=== PATIENT | male | born 1965 | race Caucasian/White ===

== ENCOUNTER 2018-01-10 17:47 | Emergency (ER) | payer MEDICARE, MEDICAID ==
--- NOTE | 2018-01-10 19:01 | ULT ---
ULTRASOUND BLADDER 01/10/18 HISTORY: Pain and retention. COMPARISON: None. FINDINGS: Urinary bladder is distended. The prevoid urinary bladder volume is 217 mL. IMPRESSION: Urinary bladder volume of 217 mL. POS: RAMANH
[2018-01-10 19:22] LABS: #Eosinphils 0.2 thou/uL (0.0-0.7); #Lymphocytes 3.1 thou/uL (1.20-3.40); #Neutrophils 9.7 thou/uL (1.40-6.50); %Basophils 0.3 % (0.0-1.0); %Eosinophils 1.1 % (0.0-10.0); %Lymphocytes 22.2 % (21.0-51.0); %Monocytes 6.9 % (0.0-10.0); %Neutrophils 69.5 % (42.0-75.0); Hemoglobin 18.1 g/dL (14.0-18.0); Mean Corpuscular HGB CONC 34.3 g/dL (32.0-36.0); Mean Corpuscular Hemoglobin 32.7 pg (27.0-31.0); Mean Corpuscular Volume 95.2 fl (80.0-94.0); Mean Platelet Volume 9.1 fL (7.4-10.4); Platelet Count 172 thou/uL (130-400); RBC Distribution Width 12.4 % (11.5-14.5); Red Blood Cell (RBC) Count 5.54 mill/uL (4.70-6.10)
[2018-01-10 19:45] LABS: ALT (SGPT) 30 U/L (8-55); AST (SGOT) 21 U/L (5-34); Albumin 3.8 g/dL (3.5-5.0); Alkaline Phosphatase 140 U/L (40-150); Anion Gap 15 mmol/L (10-20); BUN (Urea Nitrogen) 13 mg/dL (8.4-25.7); Bilirubin, Total 0.5 mg/dL (0.2-1.2); Calc. Creatinine Clearance 0 mL/min (70-130); Calcium 9.4 mg/dL (7.8-10.44); Carbon Dioxide 22 mmol/L (22-29); Chloride 101 mmol/L (98-107); Estimated GFR-MDRD Greater than 90; Glucose 288 mg/dL (70-105); Lipase 9 U/L (8-78); Potassium 4.3 mmol/L (3.5-5.1); Protein, Total 7.8 g/dL (6.0-8.3); Sodium 134 mmol/L (136-145)
[2018-01-10 19:54] LABS: Bilirubin Negative (Negative); Blood, Urine Moderate (Negative); Clarity CLOUDY (Clear); Glucose, Urine (Dipstick) 500 mg/dL (Negative); Leukocyte Small (Negative); Nitrite Positive (Negative); Protein, Urine (Dipstick) Negative (Neg-Trace); Specific Gravity, Urine 1.033 (1.002-1.036); pH, Urine 7.5 (5.0-9.0)
[2018-01-10 19:57] LABS: Bacteria/HPF 4+ HPF (None Seen); Hyaline Casts/LPF 0-3 HYALINE CAST LPF (0-3 Hyaline); RBC/HPF 21-50 HPF (0-3); Squamous Epithelial None Seen HPF (0-3); WBC/HPF 21-50 HPF (0-3)
--- NOTE | 2018-01-11 04:49 | CON ---
EMERGENCY ROOM OUTPATIENT CONSULTATION NOTE DATE OF ER CONSULTATION, EVALUATION, AND REPORT: 01/10/2018 REASON FOR CONSULTATION: 1. Concern for urinary retention. 2. Difficulty with passage of Alatorre catheter. 3. History of three recent urinary tract infections. HISTORY OF PRESENT ILLNESS: Mr. Grey Ronquillo is a pleasant 52-year-old white male with a history of diabetes mellitus and amyotrophic lateral sclerosis. He really has limited communication ability se condary to the ALS. He responds in a positive manner by smiling. The patient will grimace if he has opposed to evaluation or other assessments. The patient's current presentation is for urinary reten tion with difficulty with passage of a catheter. His primary home health nurse was not able to pass a catheter today. Reportedly, he has had three urinary tract infections recently. On one occasion, a catheter was passed and the patient had about 1200 mL of urine returned. The patient is brought to the emergency room today with concerns for ongoing urinary retention with i nability to pass a catheter. Prior to my arrival in the emergency department, the patient was able to spontaneously void over 200 mL. The patient then underwent bladder scanning, which showed a residual amount of 175 mL. PAST MEDICAL HISTORY: 1. Amyotrophic lateral sclerosis. 2. Diabetes mellitus type 2. PAST SURGICAL HISTORY: 1. Septoplasty. 2. Baclofen-pump placement. SOCIAL HISTORY: The patient is in a [place] [employer]. He is disabled and does not have a smoki ng or drug use history. ALLERGIES: No known drug allergies. FAMILY MEDICAL HISTORY: Positive for diabetes mellitus. OUTPATIENT MEDICATIONS: None recorded. PHYSICAL EXAMINATION: VITAL SIGNS: Temperature 97.9, blood pressure is 139/101, pulse 114, respirations 16, O2 saturations 94% on room air. GENERAL: This is a pleasant white male with typical characteristic changes associated with ALS. The patient has relatively rigid body and is not flexing his extremities very well. HEAD, EARS, EYES, NOSE, AND THROAT: Extraocular movements appear intact. Sclerae are anicteric. Or opharynx is clear. NECK: Supple. LUNGS: Clear bilaterally. CARDIAC: There is a regular rate and rhythm. ABDOMEN: Distended. Percussion reveals increased resonance in both upper quadrants and laterally in the lower quadrants. In the midline, there is an area of roughly the size of sarath can in the midlin e that the patient has some dullness to percussion indicating a degree of incomplete bladder emptying . The bladder scan was performed during the course of my evaluation, the patient returned a value of 175 mL. GENITOURINARY: Phallus is circumcised and is without lesion. There is a small amount of blood obser [place] on the patient's diaper, but this appears to be coming not from the penis, but from the patient's scrotum which is a little on the edematous side. He appears to be having appropriate care and has l otion on most of his skin. Testes appear otherwise benign. Palpation of inguinal canal finds no honey dence of hernia. Digital rectal examination is performed and finds the patient's prostate gland is m oderately enlarged at about 35-40 grams. It does not have a sinister characteristic to it on digital rectal examination. There is air and a creamy stool present in the patient's rectum. EXTREMITIES: I do not note any amputations or other significant abnormalities other than the ALS ass ociated changes. NEUROLOGIC: The patient was not able to participate in formal neurologic examination, but has the AL S findings as noted. PROCEDURE: The patient underwent a catheterization and underwent sterile prep with Betadine and then passage of a 16-Lao Higdon catheter per urethra. This at the meatus met a small meatal urethral stricture and then subsequently passed into the patient's urethra. More proximally approximately 4 cm proximally, the patient's catheter reached an area of resistance suggestive of possible stricture or sphincteric none relaxation. Catheter was subsequently passed through the patient's prostate glan d, which felt relatively stiff and into the patient's bladder. We had good return of yellow urine wi thout evidence of gross purulence. The balloon was inflated to 19 mL with sterile water. Catheter w as initially placed to plug for later catheter bag drainage. ASSESSMENT AND PLAN: 1. Multifactorial urinary obstruction. The patient likely has urethral stricture disease based on t he passage of the catheter and this should be evaluated at a future time point in office with the cys toscope to assess levels and degree of obstruction as well as the number of sites involved in obstruc tion. A voiding trial could be considered in the office in 2 weeks' time with associated cystoscopic assessment. Based on the fact that the patient would be a stretcher bound patient, he probably shou ld present for procedure in the procedure room. We will remove the catheter and perform a voiding tr ial there followed by cystoscopic assessment and possible catheter replacement or suprapubic tube ins ertion. A competent consent provider should accompany the patient for the visit. 2. Enlarged prostate gland. The patient probably should be started on Flomax and finasteride. In a ddition, given this presentation with recent recurrent urinary tract infections, I will recommend halima ropriate antibiotic coverage given to the patient for a period of 30 days as prostatitis may be prese nting a contributor to obstruction in patients with recent urinary tract infections. 3. Male health issues. The patient is 52 years old, does have obstructive presentation and PSA test ing would be appropriate in an outpatient basis. In summary, I think this patient probably will ulti mately end up with a suprapubic tube for management acutely, an indwelling Alatorre catheter appears halima ropriate. Total of 60-minutes consultation, evaluation, and assessment time was spent in assessment of this pat ient today.
== END 2018-01-10 21:10 | disposition home or self-care (01) ==
LOC: ERS 17:47
DX: N39.0 Urinary tract infection, site not specified (principal); E11.9 Type 2 diabetes mellitus without complications; E78.5 Hyperlipidemia, unspecified; F32.9 Major depressive disorder, single episode, unspecified
CPT/HCPCS: 36415; 76856; 80053; 81003; 81015; 83605; 83690; 85025; 87040; 87077; 87086; 87186

== ENCOUNTER 2019-03-10 16:12 | Inpatient (IN) | payer MEDICARE, MEDICAID ==
[~2019-03-10 16:12] MED LIST: ISOVUE-370 76%-LOCM 1 ML ONE
[2019-03-10] MEDS ORDERED: Ondansetron PF 4 MG/2 ML Vial ONE ×2 (16:29→16:36)
[2019-03-10 16:52] LABS: #Lymphocytes 1.1 thou/uL (1.20-3.40); #Monocytes 0.7 thou/uL (0.11-0.59); #Neutrophils 12.5 thou/uL (1.40-6.50); %Basophils 0.3 % (0.0-1.0); %Eosinophils 0.1 % (0.0-10.0); %Lymphocytes 7.9 % (21.0-51.0); %Monocytes 4.9 % (0.0-10.0); %Neutrophils 86.8 % (42.0-75.0); Hemoglobin 17.6 g/dL (14.0-18.0); Mean Corpuscular HGB CONC 32.6 g/dL (32.0-36.0); Mean Corpuscular Hemoglobin 30.6 pg (27.0-31.0); Mean Platelet Volume 9.7 fL (7.4-10.4); Platelet Count 192 thou/uL (130-400); RBC Distribution Width 11.7 % (11.5-14.5); Red Blood Cell (RBC) Count 5.76 mill/uL (4.70-6.10); White Blood Cell (WBC) Count 14.4 thou/uL (4.8-10.8)
[2019-03-10 17:12] LABS: ALT (SGPT) 103 U/L (8-55); AST (SGOT) 40 U/L (5-34); Albumin 3.9 g/dL (3.5-5.0); Alkaline Phosphatase 144 U/L (40-150); Anion Gap 15 mmol/L (10-20); BUN (Urea Nitrogen) 13 mg/dL (8.4-25.7); Bilirubin, Total 0.6 mg/dL (0.2-1.2); Calc. Creatinine Clearance 0 mL/min (70-130); Calcium 9.3 mg/dL (7.8-10.44); Carbon Dioxide 23 mmol/L (22-29); Chloride 100 mmol/L (98-107); Estimated GFR-MDRD Greater than 90; Globulin 3.9 g/dL (2.4-3.5); Glucose 318 mg/dL (70-105); Lipase 4 U/L (8-78); Potassium 3.9 mmol/L (3.5-5.1); Protein, Total 7.8 g/dL (6.0-8.3); Sodium 134 mmol/L (136-145)
[2019-03-10 17:15] LABS: Bilirubin Negative (Negative); Blood, Urine Trace (Negative); Clarity Turbid (Clear); Glucose, Urine (Dipstick) Greater than 1000 mg/dL (Negative); Leukocyte 500 Leu/uL (Negative); Nitrite 1+ (Negative); Protein, Urine (Dipstick) 20 mg/dL (Neg-Trace); Squamous Epithelial None Seen HPF (0-3); Urobilinogen Normal mg/dL (Less than 2); WBC/HPF Greater than 50 HPF (0-3)
[2019-03-10 17:27] LABS: Bacteria/HPF Rare-Few HPF (None Seen); Triple Phosphate Crystal 1+ HPF (None Seen)
--- NOTE | 2019-03-10 18:02 | CT ---
CT ABDOMEN AND PELVIS WITH IV CONTRAST: INDICATIONS: History of abdominal pain. FINDINGS: There is a 5.5 mm stone within the distal right ureter causing mild right hydronephrosis. There is a gastric button in place. There is a suprapubic catheter in place. There is a moderate am ount of retained stool within the sigmoid colon. The small bowel is of normal caliber. The gallblad krystle is surgically absent. There is bibasilar atelectasis. The pancreas and adrenal glands are clive l appearing. The spleen is normal appearing. There is diffuse osteopenia. There is scattered degenerative and osteoarthritic change. There is a pain pump overlying the right lower quadrant. IMPRESSION: 1. Distal right ureteral calculus with mild right hydronephrosis. 2. Moderate amount of retained stool within the sigmoid colon. 3. Gastric button, suprapubic catheter, and intrathecal pain pump. 4. Bibasilar atelectasis. POS: BH
[2019-03-10] MEDS ORDERED: Morphine 4 MG/ML VIAL ONE (18:18)
[2019-03-10] MEDS ORDERED: cefTRIAXone\\ROCEPHIN 2 GM VIAL ONE (18:18)
[2019-03-10] MEDS ORDERED: Sodium Chloride 0.9% 100 ML ONE (18:18)
[2019-03-10] MEDS ORDERED: Ketorolac Tromethamine 30 MG/ML VIAL ONE (18:51)
[2019-03-10] MEDS ORDERED: Sodium Chloride 0.9% 1,000 ML IV SCH ×2 (20:48→22:15)
[2019-03-10] MEDS ORDERED: Dextrose 50% Abboject 50 ML SYRINGE SLOW IVP PRN (20:48)
[2019-03-10] MEDS ORDERED: Dextrose 5% in Water 1,000 ML IV PRN (20:48)
[2019-03-10] MEDS ORDERED: Guaifenesin DM 100-10/5 ML UDCUP PO PRN (20:48)
[2019-03-10] MEDS ORDERED: Metoclopramide HCl 10 MG/2 ML VIAL IVP PRN (21:03)
[2019-03-10] MEDS: Tamsulosin HCl 0.4 MG CAP PO SCH (21:33)
[2019-03-10] MEDS: Famotidine 20 MG TAB PO SCH (21:33)
[2019-03-10] MEDS: Baclofen 10 MG TAB PO SCH (21:33)
[2019-03-10] MEDS: MEROPENEM 1 GM/50 ML 1 GM in Premix Bag 1 BAG IVPB SCH (21:35)
[2019-03-10] MEDS: Insulin Glargine 15 UNITS in Pre-Filled Syringe 1 EACH SC SCH (21:48)
[2019-03-10] MEDS: HumaLOG 300 UNITS/3 ML VIAL SC PRN (21:51)
--- NOTE | 2019-03-10 21:52 | HP ---
REASON FOR ADMISSION: Right ureteral stone with ureteric colic. HISTORY OF PRESENTING ILLNESS: Please note majority of this history is obtained by talking to caregiver at bedside and sister at bedside who is also power of deputy attorney general for patient as the patient has an amyotrophic lateral sclerosis and is mostly nonverbal. He can speak 1 or 2 words and he understands the questions and tries to answer them nonverbally. Around 12 noon, the patient developed right lower abdominal pain. This was excruciating and the patient communicated with his [employer] computer to his [facility] hospice nurse. He is currently a resident of [facility] and was in hospice under [facility] prior to arrival here. They have currently revoked hospice due to abdominal pain. The pain got worse and the patient started to have 2 episodes of vomiting and was nauseated. Decision was made to send him to [place] ER. From there, he was transferred here. Currently, the patient has no abdominal pain after receiving Toradol in the ER. Has no complaints of chest pain, shortness of breath, palpitations, PND, or orthopnea. No fever at present. PAST MEDICAL AND SURGICAL HISTORY: History of ALS from last 8 years, diabetes mellitus type 2. The patient is essentially bedbound, PEG tube, suprapubic catheter for urinary retention with recurrent UTI, history of septoplasty, prior baclofen pump, dyslipidemia, hypertension, history of recurrent UTIs, currently quadriplegic from ALS. CURRENT MEDICATIONS: Per [facility] records, the patient is on; 1. Finasteride 5 mg p.o. at bedtime via PEG tube. 2. Benadryl p.r.n. 3 times daily. 3. MiraLax 17 g daily. 4. Zanaflex 4 mg p.o. q.6 hourly p.r.n. 5. Baclofen 20 mg 4 times daily for spasms. 6. Myrbetriq 25 mg p.o. daily. 7. Ultram 50 mg p.o. q.4 hourly p.r.n. for pain. 8. Lantus 30 units subcu at bedtime. 9. Multivitamin 1 tablet once daily. 10. Lasix 20 mg twice daily. 11. Amitriptyline 25 mg p.o. at bedtime. 12. Aspirin 81 mg p.o. daily. ALLERGIES: THE PATIENT HAS SEVERE NAUSEATING EPISODE WHEN HE TAKES MORPHINE, BUT NO REAL ALLERGY SUCH. IN FACT, HE TAKES ULTRAM REGULARLY AT THE DETENTION. PERSONAL HISTORY: Does not abuse alcohol or drugs. He is currently a resident of [facility] in [place]. FAMILY HISTORY: Mother at the age of 64 years. She has had history of triple A aneurysm with rupture. Father at the age of 87 years, he has had history of prostate cancer with metastasis. Code status is full. Power of deputy attorney general is Ms. Myrick, his sister. The patient has been in hospice for the last 5 years and the hospice caregiver at bedside says this code status was not addressed with them till now. They are in the process of addressing it apparently. I have discussed code status with Ms. Myrick, his sister and she wants him to be a full code for now. REVIEW OF SYSTEMS: To the extent possible is negative except for those mentioned above. Please note, this is very limited in view of the patient's nonverbal status with history of ALS. PHYSICAL EXAMINATION: GENERAL: The patient is a 53-year-old male who is currently not in any acute distress. VITAL SIGNS: Blood pressure 155/100, pulse 100 per minute, respiratory rate 18 per minute, temperature 97.4 degrees Fahrenheit, saturating 96% on room air. NECK: Supple. No elevated JVD. HEENT: Eyes; extraocular muscles intact. Pupils reacting to light. Oral cavity, mucous membranes are dry. No exudates or congestion. CARDIOVASCULAR SYSTEM: S1, S2 heard. Regular rhythm. RESPIRATORY SYSTEM: Air entry 1+ bilateral. No rales or rhonchi. ABDOMEN: The patient has a PEG tube, has some excoriation and erythema of skin around it. The caregiver at bedside says it was lot worse before. No obvious tenderness at present. Bowel sounds are heard. No rigidity or guarding. EXTREMITIES: The patient has bilateral foot drop and mild edema in the lower extremities. Peripheral pulses are 1+ bilateral. No obvious gangrene seen. CENTRAL NERVOUS SYSTEM: The patient is quadriplegic. He is able to move his extraocular muscles well and facial musculature is intact at present. He can cough and smile. He is maintaining airway. PSYCHIATRIC SYSTEM: No obvious hallucinations or delusions. LABORATORY DATA: White count of 14, H and H are 17 and 54, platelet count 192 with 86% neutrophils. Sodium 134, bicarb is 23, BUN 13, creatinine 0.7, serum glucose 318, AST 40, ALT 103, alkaline phosphatase 144, albumin is 3.9, and lipase is 4. UA shows 1+ nitrite, positive leukocyte esterase, and greater than [address] of the abdomen and pelvis with IV contrast done shows distal right ureteral calculus with mild right hydronephrosis, moderate amount of retained stool within the sigmoid colon. The patient has a suprapubic catheter and prior intrathecal pain pump. CLINICAL IMPRESSION AND PLAN: The patient will be admitted to med/surg floor for right distal ureteral stone with mild hydronephrosis. The size of the stone is 5.5 mm per CAT scan. This should likely pass with IV hydration. Mr. Ronquillo is currently not in any pain. We will continue him on his Toradol. The family is particular about getting his baclofen. His baclofen intrathecal pump has not been operation after he went to hospice per family. We will place him on Flomax twice daily to aid with passage of the stone. Meropenem for possible urinary tract infection. He has suprapubic catheter and likely is colonized. Blood and urine cultures have been obtained in the ER. Dr. Raulito Dumont is his urologist, and we will obtain consultation in the morning. We will switch his Lantus to 15 units subcu twice daily. PEG feeding will be continued. If the patient's pain were to come back, he will be kept n.p.o. for possible cystoscopy and intervention. We will also continue his Proscar, amitriptyline, and Myrbetriq as before. The patient has a pretty advanced ALS and is quadriplegic. He is also in hospice for the last 5 years. He is currently full code and I have discussed his code status with his POA, Ms. Myrick who is also his sister at bedside. His urine will be strained to see if he pass the stone. Job ID: [id number]
[2019-03-10] MEDS: Acetaminophen 325 MG TAB PO PRN (22:24)
[2019-03-10 22:53] VITALS: BMI 26.1
[2019-03-11] MEDS: Ketorolac Tromethamine 30 MG/ML VIAL IVP PRN ×3 (01:21→21:38)
[2019-03-11] MEDS: HumaLOG 300 UNITS/3 ML VIAL SC PRN (01:26)
[2019-03-11] MEDS ORDERED: Sodium Chloride 0.9% 500 ML IV SCH (05:30)
[2019-03-11] MEDS: Sodium Chloride 0.9% 1,000 ML IV SCH ×3 (05:43→21:37)
[2019-03-11] MEDS: MEROPENEM 1 GM/50 ML 1 GM in Premix Bag 1 BAG IVPB SCH ×3 (05:44→21:37)
[2019-03-11 06:31] LABS: Anion Gap 12 mmol/L (10-20); BUN (Urea Nitrogen) 15 mg/dL (8.4-25.7); Calc. Creatinine Clearance 129 mL/min (70-130); Calcium 8.4 mg/dL (7.8-10.44); Carbon Dioxide 21 mmol/L (22-29); Chloride 105 mmol/L (98-107); Estimated GFR-MDRD Greater than 90; Glucose 181 mg/dL (70-105); Potassium 3.8 mmol/L (3.5-5.1); Sodium 134 mmol/L (136-145)
[2019-03-11 06:35] LABS: Band 25 % (5-11); Hemoglobin 15.9 g/dL (14.0-18.0); Lymphocytes 15 % (21-51); MDiff Complete? YES; Mean Corpuscular HGB CONC 35.8 g/dL (32.0-36.0); Mean Corpuscular Hemoglobin 34.3 pg (27.0-31.0); Mean Corpuscular Volume 95.7 fL (78.0-98.0); Mean Platelet Volume 9.7 fL (7.4-10.4); Monocytes 7 % (0-10); Neutrophil 53 % (42-75); Platelet Count 141 thou/uL (130-400); Platelet Morphology Comment Appears Adequate; RBC Distribution Width 11.9 % (11.5-14.5); Red Blood Cell (RBC) Count 4.63 mill/uL (4.70-6.10); White Blood Cell (WBC) Count 20.7 thou/uL (4.8-10.8)
[2019-03-11] MEDS: Famotidine 20 MG TAB PO SCH ×2 (12:06→21:37)
[2019-03-11] MEDS: Baclofen 10 MG TAB PO SCH ×3 (12:06→21:37)
[2019-03-11] MEDS: Tamsulosin HCl 0.4 MG CAP PO SCH ×2 (12:06→21:38)
[2019-03-11] MEDS: Finasteride 5 MG TAB PO SCH (12:06)
[2019-03-11] MEDS: Amitriptyline HCl 25 MG TAB PO SCH (12:06)
[2019-03-11] MEDS: Insulin Glargine 15 UNITS in Pre-Filled Syringe 1 EACH SC SCH ×3 (12:08→21:40)
--- NOTE | 2019-03-11 13:23 | PDOC.PN ---
- Subjective Encounter Start Date: 03/11/19 Encounter Start Time: 11:30 -: non-verbal Subjective: awake, no pain, understands verbal questions -: has a bit of movement in left UE and can reach call button -: no sob - Objective Resuscitation Status - Order Detail: 03/10/19 20:40 Resuscitation Status Routine Resuscitation Status: FULL: Full Resuscitation Discussed with: d/w sister and POA at bedside MAR Reviewed: Yes Vital Signs & Weight: Vital Signs (12 hours) Temp Pulse Ox 03/11/19 11:12 98.6 F 03/11/19 08:00 92 L 03/11/19 07:50 92 L 03/11/19 07:11 98.4 F 03/11/19 03:29 97.4 F L Weight Weight 192 lb 6.4 oz Most Recent Monitor Data Heart Rate from ECG 100 NIBP 114/72 NIBP BP-Mean 86 Respiration from ECG 17 SpO2 94 I&O: 03/10/19 03/11/19 03/12/19 06:59 06:59 06:59 Intake Total 1350 Output Total 675 Balance 675 Result Diagrams: 03/11/19 05:23 03/11/19 05:23 Additional Labs: Accuchecks 03/11/19 03/11/19 03/10/19 06:14 01:26 21:35 POC Glucose 193 H 238 H 279 H Phys Exam - Physical Examination HEENT: PERRLA, moist MMs Neck: no JVD, supple Respiratory: no wheezing, no rales Cardiovascular: RRR, no significant murmur Gastrointestinal: soft, no distention, positive bowel sounds peg+, spc+ Musculoskeletal: pulses present foot drop b/l, wasting of muscles Dx/Plan (1) Right ureteral calculus Code(s): N20.1 - CALCULUS OF URETER Status: Acute (2) Ureteric colic Code(s): N23 - UNSPECIFIED RENAL COLIC Status: Acute (3) Amyotrophic lateral sclerosis (ALS) Code(s): G12.21 - AMYOTROPHIC LATERAL SCLEROSIS Status: Chronic (4) Quadriparesis Code(s): G82.50 - QUADRIPLEGIA, UNSPECIFIED Status: Chronic Comment: sec to ALS (5) Dysphagia Code(s): R13.10 - DYSPHAGIA, UNSPECIFIED Status: Chronic Comment: has peg+ (6) DM type 2 (diabetes mellitus, type 2) Status: Chronic Qualifiers: Diabetes mellitus chcf insulin use: with watermelon inspector use - Plan is on meropenem, generous iv hydration to propel stone into bladder -: await urology opinion -: I have d/w family and have given complete updates -: they are aware of anesthesia risk and possible resp failure if intervention -: --is needed. Urine straining to look out for stone. * . continue peg feeding, lantus, flomax bid, finasteride. Review of Systems - Medications/Allergies Allergies/Adverse Reactions: Allergies Allergy/AdvReac Type Severity Reaction Status Date / Time No Known Allergies Allergy Verified 04/15/13 00:07 Medications: Current Medications Acetaminophen (Tylenol) 650 mg PO Q4H PRN PRN Reason: Headache/Fever/Mild Pain (1-3) Last Admin: 03/10/19 22:24 Dose: 650 mg Amitriptyline HCl (Elavil) 25 mg PO DAILY [facility] Last Admin: 03/11/19 12:06 Dose: 25 mg Baclofen (Lioresal) 10 mg PO TID [facility] Last Admin: 03/11/19 12:06 Dose: 10 mg Dextrose/Water (Dextrose 50%) 25 gm SLOW IVP PRN PRN PRN Reason: Hypoglycemia Famotidine (Pepcid) 20 mg PO BID [facility] Last Admin: 03/11/19 12:06 Dose: 20 mg Finasteride (Proscar) 5 mg PO DAILY [facility] Last Admin: 03/11/19 12:06 Dose: 5 mg Glucagon (Glucagon) 1 mg IM PRN PRN PRN Reason: Hypoglycemia Guaifenesin/Dextromethorphan (Robitussin Dm) 15 ml PO Q4H PRN PRN Reason: Cough Dextrose/Water (D5w) 1,000 mls @ 0 mls/hr IV .Q0M PRN PRN Reason: Hypoglycemia Insulin Glargine 15 units/ (Miscellaneous Medication) 0.15 mls @ 0 mls/hr SC BID [facility] Last Admin: 03/11/19 12:08 Dose: Not Given Meropenem 1 gm/ Device 50 mls @ 100 mls/hr IVPB Q8HR [facility] Last Admin: 03/11/19 05:44 Dose: 50 mls Sodium Chloride (Normal Saline 0.9%) 1,000 mls @ 150 mls/hr IV .Q6H40M [facility] Last Admin: 03/11/19 12:22 Dose: 1,000 mls Insulin Human Lispro (Humalog) 0 units SC .MODERATE SLIDING SC PRN PRN Reason: Moderate Correctional Scale Insulin Human Lispro (Humalog) 0 units SC .BEDTIME SLIDING SC PRN PRN Reason: Bedtime Correctional Scale Last Admin: 03/11/19 01:26 Dose: 2 unit Ketorolac Tromethamine (Toradol) 30 mg IVP Q6H PRN PRN Reason: Pain Stop: 03/15/19 20:49 Last Admin: 03/11/19 12:20 Dose: 30 mg Metoclopramide HCl (Reglan) 10 mg IVP Q6H PRN PRN Reason: Nausea/Vomiting Last Admin: 03/10/19 21:18 Dose: 10 mg Mirabegron (Myrbetriq Er) 25 mg PO DAILY [facility] Last Admin: 03/11/19 12:07 Dose: 25 mg Sodium Chloride (Flush - Normal Saline) 10 ml IVF Q12HR [facility] Last Admin: 03/11/19 12:08 Dose: Not Given Sodium Chloride (Flush - Normal Saline) 10 ml IVF PRN PRN PRN Reason: Saline Flush Tamsulosin HCl (Flomax) 0.4 mg PO HS [facility] Last Admin: 03/10/19 21:33 Dose: 0.4 mg Tamsulosin HCl (Flomax) 0.4 mg PO DAILY [facility] Last Admin: 03/11/19 12:06 Dose: 0.4 mg
--- NOTE | 2019-03-11 16:58 | CON ---
DATE OF CONSULTATION: 03/11/2019 REASON FOR CONSULTATION: 1. History of urinary retention with indwelling suprapubic tube. 2. Recurrent urinary tract infection. 3. Right ureteral calculi. PROBLEM LIST: 1. Right ureteral calculi, N20.0. 2. Recurrent urinary tract infection, N39.0. 3. Urinary retention, R33.9. 4. Amyotrophic lateral sclerosis, G12.21. 5. Controlled type 2 diabetes mellitus without complication, E11.9. BRIEF HISTORY: Mr. Grey Ronquillo is a 53-year-old white male with amyotrophic lateral sclerosis, who was admitted on 03/10/2019 due to right ureteral calculi with ureteral colic as well as generalized excruciating discomfort. The patient presented with tachycardia and signs of both pain and possible sepsis. He has a chronic indwelling suprapubic tube due to urinary retention. The patient was initially in the [facility], subsequently transferred to [facility], and then to [facility]. The patient was evaluated by Dr. Reyes in the emergency department and admitted to the hospital for his multiple issues including the urinary retention history with suprapubic tube and right ureteral calculi. A CT scan of the abdomen and pelvis on 03/10/2019, demonstrated the presence of right-sided ureteral calculus, measuring about 5 mm in diameter, and proximal hydroureter into a degree of proximal hydronephrosis. Due to the patient's extreme pain symptoms and concerns for sepsis, he was placed on antibiotic coverage and has generally improved with declining tachycardic rate. He is responding also to fluid resuscitation. The patient's initial laboratory results showed an elevated white count of 14,400, rising to 20,700 today. He had 86.8% neutrophils yesterday, improving to 53% today. The patient had a BUN to creatinine ratio on admission, which suggested dehydration. PAST MEDICAL HISTORY: 1. Amyotrophic lateral sclerosis. 2. Diabetes mellitus, type 2. 3. Recurrent urinary tract infection. 4. Urinary retention with indwelling suprapubic tube. PAST SURGICAL HISTORY: 1. Septoplasty. 2. Suprapubic tube placement. 3. Baclofen pump placement. SOCIAL HISTORY: The patient resides in the [facility]. He is disabled and does not have a smoking or drug use history. ALLERGIES: NO KNOWN DRUG ALLERGIES. FAMILY MEDICAL HISTORY: Positive for diabetes mellitus. MEDICATIONS: Outpatient medications would include baclofen and the baclofen pump and the following additional medications from the [facility] records. 1. Finasteride 5 mg via PEG tube per night. 2. Benadryl 3 times per day. 3. MiraLAX 17 g per day. 4. Zanaflex 4 mg p.o. q.6 h. p.r.n. 5. Baclofen 20 mg 4 times daily for spasms. 6. Myrbetriq 25 mg p.o. daily. 7. Ultram 50 mg p.o. q.4 h. as needed for pain. 8. Lantus insulin 30 units subcu at bedtime. 9. Daily multivitamin once per day. 10. Lasix 20 mg twice daily. 11. Amitriptyline 25 mg p.o. nightly. 12. Aspirin 81 mg p.o. daily. REVIEW OF SYSTEMS: Due to Grey's ALS, he is not able to provide adequate review of systems. He is able to report pain with extended questioning, which appears to be either on the right side or in the mid back by his report. PHYSICAL EXAMINATION: GENERAL: This is a 53-year-old male who is not currently in acute distress, but he does have some pain by his report. VITAL SIGNS: Temperature 98.6, pulse is 106, blood pressure is 114/72, and O2 saturation is 94% on room air. HEAD, EYES, EARS, NOSE, AND THROAT: Extraocular movements are intact. Sclerae anicteric. Oropharynx is clear. The patient is not able to enunciate words or communicate other than by shaking his eyes and head slightly. LUNGS: Clear to auscultation bilaterally. CARDIAC: Regular rate and rhythm. ABDOMEN: Feels distended to palpation. Percussion reveals increased resonance in both upper quadrants. The patient has an indwelling suprapubic tube. The tube has some age related changes to it, including some incrustation with bile film on. GENITOURINARY: Phallus is circumcised and is without lesion. The scrotum is benign. RECTUM: Digital Rectal examination is not repeated. EXTREMITIES: No amputations noted. The patient has some muscle related changes due to ALS. NEUROLOGIC: The patient was not able to participate in formal neurologic examination due to his ALS findings. LABORATORY STUDIES: Electrolytes are improved except for carbon dioxide today of 21, glucose is down from 318 to 181 and 193 on the most recent check. Hematologic profile shows the patient's white count rising to 20,700 with normalization of his left shifted neutrophil percentage, his neutrophils decreased from 86.8 to 53 with 25 bands. A urine culture obtained yesterday shows presence of gram-negative rods. This was taken from an old SP tube, so the result should be held and the question may simply represent colonization. Given the vital signs, I think this is probably a real organism. ASSESSMENT AND PLAN: 1. Right-sided possibly partially obstructing ureteral calculus, 5 mm, currently proceed with balloon dilation of the right ureteric orifice in impaction zone. We will then plan on proceeding with ureteroscopy and laser lithotripsy. Plan on complete extraction of stone fragments due to the presence of a probable simultaneous urinary tract infection. The patient will be stented and will have to follow up in my office after discharge for stent removal. 2. Urinary retention. We will plan on changing the patient's suprapubic tube at surgery. 3. Infectious disease concerns. I think the patient's supranormal IV resuscitation can be decreased to 125 mL an hour after his pulse rate drops below 100. The patient is currently covered on adequate antibiotics with Rocephin in the emergency department and current meropenem. TIME SPENT: Over 70 minutes of initial hospital consultation and assessment time was spent in the evaluation of this patient today including review of current and old records, and in addition, coordination of care, discussion with the patient's family by telephone, and scheduling of his surgery for tomorrow. Job ID: [id number]
[2019-03-12] MEDS: Insulin Glargine 15 UNITS in Pre-Filled Syringe 1 EACH SC SCH ×2 (01:04→08:39)
[2019-03-12] MEDS: Sodium Chloride 0.9% 1,000 ML IV SCH ×2 (04:12→09:27)
[2019-03-12] MEDS: MEROPENEM 1 GM/50 ML 1 GM in Premix Bag 1 BAG IVPB SCH ×3 (05:18→23:30)
[2019-03-12] MEDS: HumaLOG 300 UNITS/3 ML VIAL SC PRN (06:09)
[2019-03-12] MEDS ORDERED: Sodium Chloride 0.9% 1,000 ML IV SCH (07:44)
[2019-03-12] MEDS: Amitriptyline HCl 25 MG TAB PO SCH (08:36)
[2019-03-12] MEDS: Baclofen 10 MG TAB PO SCH ×3 (08:36→23:28)
[2019-03-12] MEDS: Famotidine 20 MG TAB PO SCH ×2 (08:37→23:28)
[2019-03-12] MEDS: Finasteride 5 MG TAB PO SCH (08:37)
[2019-03-12] MEDS: Tamsulosin HCl 0.4 MG CAP PO SCH ×2 (08:38→23:29)
--- NOTE | 2019-03-12 09:28 | PQF ---
OSMEL AVENDANO, JOVANNY SPEARS MD [id number] [id number] CLINICAL DOCUMENTATION IMPROVEMENT CLARIFICATION FORM: ICD-10 Updated PLEASE DO AN ADDENDUM TO THE PROGRESS NOTE WITH ANY DOCUMENTATION UPDATES OR ADDITIONS AND CARRY THROUGH TO DC SUMMARY. THANK YOU. DATE: 03/12 ATTN: DR. Tanner RICKS Please exercise your independent, professional judgment in responding to the clarification form. Clinical indicators are provided on the bottom of this form for your review. Please check appropriate box(es): [ x ] Sepsis due to: (Pna, UTI, gangrenous gall bladder, etc.) __uti with indwelling spc and ureteric calculi due to: [ ] Device (please specify) ____ [ ] SIRS due to non-infectious process (please specify etiology) [ ] with organ dysfunction [ ] without organ dysfunction [ ] Localized infection without sepsis [ ] Other diagnosis [ ] Unable to determine In addition, please specify: Present on Admission (POA): [ x ] Yes [ ] No [ ] Unable to determine For continuity of documentation, please document condition throughout progress notes and discharge summary. Thank You. CLINICAL INDICATORS - SIGNS / SYMPTOMS / LABS UROLOGY H&P 03/11 (IESHA): ...THE PATIENT PRESENTED W/TACHYCARDIA & SIGNS OF BOTH PAIN & POSSIBLE SEPSIS. D/T PATIENT'S EXTREME PAIN SYMPTOMS & CONCERNS FOR SEPSIS, HE WAS PLACED ON ANTIBIOTIC COVERAGE & HAS GENERALLY IMPROVED WITH DECLINING TACHYCARDIC RATE WBC 14.4 (20.7, BANDS 25%, W/IN 24 HRS OF ADMIT), T: 102.4 (AFTER ARRIVAL TO FLOOR) HR: 102-146 RR: 22 RISKS: R URETERAL STONE W/ POSSIBLE OBSTRUCTION (UROLOGY H&P, 03/11) SUPRAPUBIC CATHETER W/ POSSIBLE UTI (H&P, 03/10)) ALS W/QUADRIPLEGIA (H&P HX, 03/10) TREATMENT: IV ANTIBIOTIC (MEROPENEM 03/10 - PRESENT) IVF (NS 03/10 - PRESENT) UROLOGY CONSULT (03/11) THANK YOU! Joy (This form is maintained as a part of the permanent medical record) 2014 [id number]. All Rights Reserved Joy Blandon RN, BSN [email or web address] Office: [phone] [email or web address]
[2019-03-12] MEDS: Ketorolac Tromethamine 30 MG/ML VIAL IVP PRN ×2 (10:27→23:30)
[2019-03-12] MEDS ORDERED: Ondansetron PF 4 MG/2 ML Vial ONE (11:08)
[2019-03-12] MEDS ORDERED: PROPOFOL 200 MG/20 ML VIAL ONE (11:08)
[2019-03-12] MEDS ORDERED: Lidocaine 1% PF 5 ML VIAL ONE (11:08)
--- NOTE | 2019-03-12 11:20 | CON ---
DATE OF CONSULTATION: HISTORY OF PRESENT ILLNESS: This is a 53-year-old unfortunate gentleman with ALS diagnosed 8 years ago for a period of time he was going to [facility] in [place]. Now, he has been at the [facility] for a long time. Presented with abdominal pain and was found to have a right ureteral calculus. He is unable to talk much because of his ALS. He has dysphagia. He has PEG in place. His sister who is a foley artist was at the bedside, gives adequate history. Nonsmoker, nondrinker. PAST MEDICAL HISTORY: ALS associated multiple problems essentially he is quadriplegic. He has evidence of dysphagia requiring a PEG, diabetes, hyperlipidemia. PREVIOUS SURGERIES: G-tube. He is apparently on hosp[facility] care at [facility]. This was revoked after he came here for surgical procedure. ADDITIONAL PAST SURGERIES: Included baclofen pump and suprapubic catheter, previous apparently nephrostomy. MEDICATIONS: 1. Tramadol. 2. Zanaflex. 3. Benadryl. 4. Insulin Lantus 30. 5. Lasix 20. 6. Proscar 5. 7. Laxative. 8. Baclofen 20 four times. 9. Aspirin. 10. Elavil 25. ALLERGIES: NONE. SOCIAL AND FAMILY HISTORY: Unremarkable. IMPRESSION: 1. Sepsis syndrome. 2. Right-sided obstructive ureteral calculus. 3. Amyotrophic lateral sclerosis with basically quadriplegia. 4. Gram-negative urinary tract infection. PLAN: He was started on broad-spectrum antibiotics for UTI, indwelling catheter long-term. Continue otherwise supportive care, PT Incidentally, his lab shows white count is elevated at 20,000. Platelet count is normal. His chemistry profile shows BUN and creatinine are normal. Blood sugar 189. Pulmonary Critical Care will follow while in the MICU. Once surgery has been done, he may want to put back on a DNR on hospice care again. Consultation note, 70 minutes, 50% direct patient care. Job ID: [id number]
--- NOTE | 2019-03-12 12:45 | PDOC.PN ---
- Subjective Encounter Start Date: 03/12/19 Encounter Start Time: 10:15 Subjective: awake, not in distress, is smiling no pain now -: sister at bedside -: maintaining airway - Objective Resuscitation Status - Order Detail: 03/10/19 20:40 Resuscitation Status Routine Resuscitation Status: FULL: Full Resuscitation Discussed with: d/w sister and POA at bedside MAR Reviewed: Yes Vital Signs & Weight: Vital Signs (12 hours) Temp Pulse Ox 03/12/19 11:00 97 03/12/19 10:29 97.7 F 03/12/19 08:00 97 03/12/19 07:21 97.7 F 03/12/19 03:15 97.1 F L Weight Admit Weight 192 lb 6.4 oz Weight 192 lb 6.4 oz Most Recent Monitor Data Heart Rate from ECG 106 NIBP 136/76 NIBP BP-Mean 96 Respiration from ECG 24 SpO2 98 I&O: 03/11/19 03/12/19 03/13/19 06:59 06:59 06:59 Intake Total 1350 4781 237 Output Total 675 575 Balance 675 4206 237 Result Diagrams: 03/11/19 05:23 03/11/19 05:23 Additional Labs: Accuchecks 03/12/19 03/12/19 03/12/19 10:18 06:07 00:05 POC Glucose 244 H 189 H 196 H 03/11/19 03/11/19 18:02 14:44 POC Glucose 147 H 130 H Phys Exam - Physical Examination HEENT: PERRLA, sclera anicteric Neck: no JVD, supple Respiratory: no wheezing, no rales Cardiovascular: RRR, no significant murmur Gastrointestinal: soft, positive bowel sounds peg+, spc+ Musculoskeletal: pulses present, edema present quadriplegia responds nonverbally to questions Dx/Plan (1) Right ureteral calculus Code(s): N20.1 - CALCULUS OF URETER Status: Acute (2) Ureteric colic Code(s): N23 - UNSPECIFIED RENAL COLIC Status: Acute (3) Amyotrophic lateral sclerosis (ALS) Code(s): G12.21 - AMYOTROPHIC LATERAL SCLEROSIS Status: Chronic (4) Quadriparesis Code(s): G82.50 - QUADRIPLEGIA, UNSPECIFIED Status: Chronic Comment: sec to ALS (5) Dysphagia Code(s): R13.10 - DYSPHAGIA, UNSPECIFIED Status: Chronic Comment: has peg+ (6) DM type 2 (diabetes mellitus, type 2) Status: Chronic Qualifiers: Diabetes mellitus laborer marine terminal insulin use: with detention use (7) Sepsis Code(s): A41.9 - SEPSIS, UNSPECIFIED ORGANISM Status: Acute Qualifiers: Sepsis type: sepsis due to unspecified organism Qualified Code(s): A41.9 - Sepsis, unspecified organism (8) UTI (urinary tract infection) Status: Acute Qualifiers: Urinary tract infection type: acute pyelonephritis Qualified Code(s): N10 - Acute pyelonephritis Comment: has SPC+ - Plan is going for cystoscopy with stenting this afternoon -: I have d/w for possible resp failure post anesthesia -: continue meropenem, dc iv fluids due to edema and has planned procedure now -: continue baclofen, toradol prn, elavil, proscar, flomax, myrbetriq -: lantus 15 u bid. Hemostable, wbc is 20k with bands. * . Likely has invasive uti with leukocytosis and bandemia, cultures are pending, ? polymicrobial due to spc+ Review of Systems - Medications/Allergies Allergies/Adverse Reactions: Allergies Allergy/AdvReac Type Severity Reaction Status Date / Time No Known Allergies Allergy Verified 04/15/13 00:07 Medications: Current Medications Acetaminophen (Tylenol) 650 mg PO Q4H PRN PRN Reason: Headache/Fever/Mild Pain (1-3) Last Admin: 03/10/19 22:24 Dose: 650 mg Amitriptyline HCl (Elavil) 25 mg PO DAILY [facility] Last Admin: 03/12/19 08:36 Dose: 25 mg Baclofen (Lioresal) 10 mg PO TID [facility] Last Admin: 03/12/19 08:36 Dose: 10 mg Dextrose/Water (Dextrose 50%) 25 gm SLOW IVP PRN PRN PRN Reason: Hypoglycemia Famotidine (Pepcid) 20 mg PO BID [facility] Last Admin: 03/12/19 08:37 Dose: 20 mg Finasteride (Proscar) 5 mg PO DAILY [facility] Last Admin: 03/12/19 08:37 Dose: 5 mg Glucagon (Glucagon) 1 mg IM PRN PRN PRN Reason: Hypoglycemia Guaifenesin/Dextromethorphan (Robitussin Dm) 15 ml PO Q4H PRN PRN Reason: Cough Dextrose/Water (D5w) 1,000 mls @ 0 mls/hr IV .Q0M PRN PRN Reason: Hypoglycemia Insulin Glargine 15 units/ (Miscellaneous Medication) 0.15 mls @ 0 mls/hr SC BID [facility] Last Admin: 03/12/19 08:39 Dose: Not Given Meropenem 1 gm/ Device 50 mls @ 100 mls/hr IVPB Q8HR [facility] Last Admin: 03/12/19 05:18 Dose: 50 mls Sodium Chloride (Normal Saline 0.9%) 1,000 mls @ 80 mls/hr IV .[id number] [facility] Last Admin: 03/12/19 08:33 Dose: 1,000 mls Insulin Human Lispro (Humalog) 0 units SC .MODERATE SLIDING SC PRN PRN Reason: Moderate Correctional Scale Last Admin: 03/12/19 06:09 Dose: 2 unit Insulin Human Lispro (Humalog) 0 units SC .BEDTIME SLIDING SC PRN PRN Reason: Bedtime Correctional Scale Last Admin: 03/11/19 01:26 Dose: 2 unit Ketorolac Tromethamine (Toradol) 30 mg IVP Q6H PRN PRN Reason: Pain Stop: 03/15/19 20:49 Last Admin: 03/12/19 10:27 Dose: 30 mg Metoclopramide HCl (Reglan) 10 mg IVP Q6H PRN PRN Reason: Nausea/Vomiting Last Admin: 03/10/19 21:18 Dose: 10 mg Mirabegron (Myrbetriq Er) 25 mg PO DAILY [facility] Last Admin: 03/12/19 08:36 Dose: 25 mg Sodium Chloride (Flush - Normal Saline) 10 ml IVF Q12HR [facility] Last Admin: 03/12/19 08:38 Dose: 10 ml Sodium Chloride (Flush - Normal Saline) 10 ml IVF PRN PRN PRN Reason: Saline Flush Tamsulosin HCl (Flomax) 0.4 mg PO HS [facility] Last Admin: 03/11/19 21:38 Dose: 0.4 mg Tamsulosin HCl (Flomax) 0.4 mg PO DAILY [facility] Last Admin: 03/12/19 08:38 Dose: 0.4 mg
[2019-03-12] MEDS ORDERED: Silver Nitrate Application 1 EACH ONE ×2 (18:38→18:44)
[2019-03-12] MEDS ORDERED: Iothalamate Meglumine 60% 50 ML VIAL FS ONE ×2 (18:38→19:25)
--- NOTE | 2019-03-12 19:47 | RAD ---
EXAM: XR IVP Retrograde PROVIDED CLINICAL HISTORY: Ureteral stent placement COMPARISON: CT 03/10/2019 FINDINGS: Multiple spot fluoroscopic images were obtained during the course of right ureteral stent placement. IMPRESSION: As above.
[2019-03-12] MEDS ORDERED: Promethazine HCl 25 MG/ML VIAL IM PRN (20:03)
[2019-03-12] MEDS ORDERED: Ondansetron HCl/PF 4 MG/2 ML Vial IVP PRN (20:03)
[2019-03-12] MEDS ORDERED: Promethazine HCl 25 MG/ML VIAL SLOW IVP PRN (20:03)
[2019-03-12] MEDS ORDERED: Fentanyl 100 MCG/2 ML VIAL ONE ×3 (20:16→20:41)
[2019-03-12] MEDS ORDERED: Potassium Citrate 1100-334mg/5ml Oral Solution PO SCH (21:00)
--- NOTE | 2019-03-12 22:44 | OP ---
DATE OF PROCEDURE: 03/12/2019 PREOPERATIVE DIAGNOSES: 1. Right-sided ureteral calculi, N20.1. 2. Urinary retention with indwelling suprapubic tube. POSTOPERATIVE DIAGNOSES: 1. Right-sided ureteral calculi, N20.1. 2. Urinary retention with indwelling suprapubic tube. 3. Radiolucent calculi of the right ureter. 4. Multilevel right ureteral stricture including ureteropelvic junction level and distal ureter. 5. Urethral stricture disease. 6. Bladder stone. PROCEDURES PERFORMED: 1. Cystourethroscopy with right-sided ureteroscopy, 08775. 2. Right-sided stent placement, 76876. 3. Balloon dilation of right ureteral stricture, 45962. 4. Suprapubic tube replacement, 60188. 5. Multiple retrograde pyelograms of the right ureter, 94527. CABLE ENGINEER SURGEON: None. SPECIMENS REMOVED: None. ESTIMATED BLOOD LOSS: Less than 5 mL. OPERATIVE FINDINGS: 1. The patient has radiolucent calculi suggesting he could be managed with medical management with an indwelling stent in place. 2. Multilevel right ureteral stricture. 3. Bladder calculi, which were removed and appeared to be made of uric acid. 4. Suprapubic tube exchange. BRIEF HISTORY: Mr. Grey Ronquillo is a very pleasant 53-year-old white male with an unfortunate history of amyotrophic lateral sclerosis. He is not really able to move adequately in bed or meet his own fluid needs without assistance. The patient is admitted on this admission with concerns for a right mid distal ureteral calculus. He reports pain in his right side. DESCRIPTION OF PROCEDURE: The patient was appropriately identified in the preoperative holding area. Informed written consent was verified, obtained from his family. The patient was subsequently transported to the operative suite and placed in the supine position on a cysto-fluorographic table. The patient was on meropenem intravenously as prophylactic antibiotics. After establishment of general anesthesia using LMA airway, the patient was repositioned in the supine lithotomy position. He was prepped and draped in usual sterile fashion including his indwelling suprapubic tube. We treated the granulation tissue around his suprapubic tube insertion site with silver nitrate. After treating this area and re-prepping using chlorhexidine gluconate, replaced his indwelling suprapubic tube which was 24-Indonesian with a 22-Indonesian silicone catheter. This was temporarily placed to plug drain. Following complete sterile prep and drape, we performed cystoscopic evaluation following appropriate time-out. Cystoscopic evaluation using a 22-Indonesian cystoscope sheath and a 30-degree lens revealed a proximal urethral stricture just distal to the patient's urinary sphincter level. We negotiated this and were able to evaluate the patient's prostate gland which did not appear to be obstructive. The patient's bladder was entered. We noted bladder calculi which appeared to be uric acid in nature. These were drained from the patient's bladder using the cystoscope sheath. The patient's left and right ureteric orifices were identified. A morillo endoscopic evaluation found only changes ordinarily associated with chronic indwelling Alatorre catheter. There was essentially no urine output from the right ureteric orifice. We accessed this using a 5-Indonesian Pollack catheter and a 0.035 angled Glidewire. We advanced this approximately 10 cm in the ureter until an impacted calculus was encountered. It was difficult to advance past this. We utilized the Pollack catheter to advance a Glidewire past the obstruction. After obtaining adequate access to the patient's collecting system, we once again used the cystoscope to place a 2nd wire immediately adjacent to this indwelling wire. We used a Siriona 8/10-Indonesian coaxial dilator system to perform wire exchange. This left [address] We then performed a balloon dilation of the distal ureter using a balloon dilator 4 cm x 12-Indonesian. I performed stepwise dilation up to the level where we previously had observed some type of impaction stricture. Following balloon dilation, we performed a semi-rigid ureteroscopy. This carried all the way to the level of the ureteropelvic junction without observing any stones. We did perform careful evaluation of the ureter and found no stones in place despite the previous impression via the catheter and Glidewire placement, then a stone was present. This suggested advancement up into the upper collecting system, which we do not feel safe to evaluate in the patient's current setting of a SIRS presentation. The patient underwent complete retrograde evaluation followed by placement of a 4.5-Indonesian 28 cm double-J ureteral stent to the right collecting system. We drained the patient's bladder and verified adequate positioning of the stent and also utilized fluorography to validate the positioning of the patient's indwelling suprapubic tube. This drained minimally bloody urine at the close of the procedure. Specimens, none. Estimated blood loss, less than 5 mL. COMPLICATIONS: None evident. DRAINS AND TUBES: A 4.5-Indonesian x 28 cm double-J ureteral stent into the patient's right ureter and right collecting system, and a 22-Indonesian silicone catheter placed suprapubically during the procedure. The patient was awakened, LMA airway removed, and was transported the postoperative recovery area in good condition. Job ID: [id number]
--- NOTE | 2019-03-12 22:52 | PRG ---
DATE OF SERVICE: 03/12/2019 INITIAL REASON FOR CONSULTATION: 1. Urinary retention with indwelling suprapubic tube. 2. Current urinary tract infection. 3. Right ureteral calculi. BRIEF HISTORY: Mr. Grey Ronquillo is a 53-year-old white male with amyotrophic lateral sclerosis, who was admitted on 03/10/2019, due to right ureteral calculi with ureteral colic and generalized excruciating discomfort. The patient presented in tachycardia with signs of both pain and possible sepsis. He has chronic indwelling suprapubic tube as well, which was placed due to chronic urinary retention secondary to his ALS. The patient was admitted to intensive care unit after ER evaluation demonstrated the presence of the right-sided ureteral calculus measuring 5 mm and proximal hydroureter with a proximal hydronephrosis as well. Due to the patient's extreme pain symptoms and concerns for sepsis, he was placed on antibiotic coverage and treated in the intensive care unit. He has made general progress. Please see my consultation note from 03/11/2019 for additional details. PHYSICAL EXAMINATION: VITAL SIGNS: Temperature is 98.3, pulse 104, blood pressure is 138/82, O2 saturation on room air is 94. GENERAL: He is a pleasant, awake, alert white male. HEAD, EYES, EARS, NOSE, AND THROAT: Extraocular movements are intact. Sclerae are anicteric. Oropharynx is clear. NECK: Supple. LUNGS: Clear. CARDIAC: There is a regular rate and rhythm. ABDOMEN: Soft, nontender. There is a suprapubic tube remaining in place. Urine output is partially stained with cloudy material. EXTREMITIES: The patient has limited use of his extremities. RECTAL: Digital rectal examination is deferred to the operative suite. LABORATORY STUDIES: There are no new labs since yesterday, except for point of care glucose at 228. Microbiology results show no growth at 48 hours in the blood. Urine culture preliminary results from 03/10 showed the presence of normal skin fernanda consistent with the patient's indwelling suprapubic tube. ASSESSMENT: 1. Right ureteral calculi. Plan ureteroscopy with laser lithotripsy. 2. Indwelling suprapubic tube. Plan for exchange of that due to urinary retention. Job ID: [id number]
[2019-03-12] MEDS ORDERED: Lorazepam 2 MG/ML VIAL SLOW IVP SCH (23:15)
[2019-03-12] MEDS: Acetaminophen 325 MG TAB PO PRN (23:29)
[2019-03-12] MEDS: Potassium Citrate 1100-334mg/5ml Oral Solution PER TUBE SCH (23:29)
[2019-03-13] MEDS: Insulin Glargine 15 UNITS in Pre-Filled Syringe 1 EACH SC SCH ×3 (03:11→20:59)
[2019-03-13] MEDS: MEROPENEM 1 GM/50 ML 1 GM in Premix Bag 1 BAG IVPB SCH ×3 (06:04→21:00)
[2019-03-13] MEDS: Ketorolac Tromethamine 30 MG/ML VIAL IVP PRN ×2 (06:04→22:17)
[2019-03-13] MEDS: Potassium Citrate 1100-334mg/5ml Oral Solution PER TUBE SCH ×4 (06:04→21:02)
[2019-03-13 08:35] LABS: Anion Gap 10 mmol/L (10-20); BUN (Urea Nitrogen) 13 mg/dL (8.4-25.7); Calc. Creatinine Clearance 191 mL/min (70-130); Calcium 8.2 mg/dL (7.8-10.44); Carbon Dioxide 24 mmol/L (22-29); Chloride 108 mmol/L (98-107); Estimated GFR-MDRD Greater than 90; Glucose 190 mg/dL (70-105); Potassium 4.5 mmol/L (3.5-5.1); Sodium 137 mmol/L (136-145)
[2019-03-13 08:58] LABS: #Eosinphils 0.1 thou/uL (0.0-0.7); #Lymphocytes 1.7 thou/uL (1.20-3.40); #Monocytes 0.7 thou/uL (0.11-0.59); #Neutrophils 5.7 thou/uL (1.40-6.50); %Basophils 0.2 % (0.0-1.0); %Eosinophils 0.7 % (0.0-10.0); %Lymphocytes 20.9 % (21.0-51.0); %Monocytes 8.1 % (0.0-10.0); %Neutrophils 70.2 % (42.0-75.0); Hemoglobin 13.7 g/dL (14.0-18.0); Mean Corpuscular HGB CONC 32.6 g/dL (32.0-36.0); Mean Corpuscular Hemoglobin 30.9 pg (27.0-31.0); Mean Corpuscular Volume 94.7 fL (78.0-98.0); Mean Platelet Volume 10.3 fL (7.4-10.4); Platelet Count 117 thou/uL (130-400); Platelet Morphology Comment Appears Decreased; RBC Distribution Width 11.8 % (11.5-14.5); RBC Morphology Normal; Red Blood Cell (RBC) Count 4.44 mill/uL (4.70-6.10); White Blood Cell (WBC) Count 8.1 thou/uL (4.8-10.8)
[2019-03-13] MEDS: Baclofen 10 MG TAB PO SCH ×3 (09:36→21:02)
[2019-03-13] MEDS: Amitriptyline HCl 25 MG TAB PO SCH (09:36)
[2019-03-13] MEDS: Finasteride 5 MG TAB PO SCH (09:36)
[2019-03-13] MEDS: Tamsulosin HCl 0.4 MG CAP PO SCH ×2 (09:36→21:02)
[2019-03-13] MEDS: Famotidine 20 MG TAB PO SCH ×2 (09:36→21:02)
[2019-03-13] MEDS: Allopurinol 300 MG TAB PER TUBE SCH (09:36)
--- NOTE | 2019-03-13 09:55 | PRG ---
DATE OF SERVICE: 03/13/2019 SUBJECTIVE: This morning, he is now on the surgical floor, no distress, status post urological procedure. OBJECTIVE: VITAL SIGNS: Temperature 97, pulse 76, respiratory rate 18, saturations 90% on 1 L, blood pressure 110/70. GENERAL: Appears to be in no distress. CHEST: Decreased breath sounds. Minimal rhonchi anteriorly. CARDIAC: Normal S1 and S2. No gallops. ABDOMEN: No masses. LABORATORY DATA: Unremarkable. Glucose is elevated. Cultures are negative. IMPRESSION: 1. Amyotrophic lateral sclerosis respiratory failure. 2. Right-sided ureteral calculi. 3. Suprapubic catheter, status post stent. PLAN: Continue supportive care, PT, antibiotics. Pulmonary will follow at a distance. Please call if needed. Job ID: [id number] MTDD
--- NOTE | 2019-03-13 12:04 | PDOC.PN ---
- Subjective Encounter Start Date: 03/13/19 Encounter Start Time: 11:00 Subjective: is awake, is using his computer to respond well -: has bloody urine - Objective Resuscitation Status - Order Detail: 03/10/19 20:40 Resuscitation Status Routine Resuscitation Status: FULL: Full Resuscitation Discussed with: d/w sister and POA at bedside MAR Reviewed: Yes Vital Signs & Weight: Vital Signs (12 hours) Temp Pulse Resp BP Pulse Ox 03/13/19 11:17 98.1 F 102 H 18 119/74 93 L 03/13/19 07:40 97.7 F 96 18 111/70 95 03/13/19 04:17 97.6 F 93 16 105/57 L 95 Weight Admit Weight 192 lb 6.4 oz Weight 192 lb 6.4 oz Most Recent Monitor Data Heart Rate from ECG 104 NIBP 138/82 NIBP BP-Mean 100 Respiration from ECG 19 SpO2 94 I&O: 03/12/19 03/13/19 03/14/19 06:59 06:59 06:59 Intake Total 4781 1231 Output Total 575 700 Balance 4206 531 Result Diagrams: 03/13/19 07:43 03/13/19 07:43 Additional Labs: Accuchecks 03/13/19 03/13/19 03/12/19 06:23 00:20 16:06 POC Glucose 145 H 157 H 228 H Phys Exam - Physical Examination HEENT: PERRLA, moist MMs Neck: no JVD, supple Respiratory: no wheezing, no rales Cardiovascular: RRR, no significant murmur Gastrointestinal: soft, no distention, positive bowel sounds Musculoskeletal: pulses present, edema present quadriplegia Psychiatric: normal affect, A&O x 3 Dx/Plan (1) Right ureteral calculus Code(s): N20.1 - CALCULUS OF URETER Status: Acute Comment: s/p cystoscopy and stent (2) Ureteric colic Code(s): N23 - UNSPECIFIED RENAL COLIC Status: Resolved (3) Amyotrophic lateral sclerosis (ALS) Code(s): G12.21 - AMYOTROPHIC LATERAL SCLEROSIS Status: Chronic (4) Quadriparesis Code(s): G82.50 - QUADRIPLEGIA, UNSPECIFIED Status: Chronic Comment: sec to ALS (5) Dysphagia Code(s): R13.10 - DYSPHAGIA, UNSPECIFIED Status: Chronic Comment: has peg+ (6) DM type 2 (diabetes mellitus, type 2) Status: Chronic Qualifiers: Diabetes mellitus jail insulin use: with jail use (7) Sepsis Code(s): A41.9 - SEPSIS, UNSPECIFIED ORGANISM Status: Resolved Qualifiers: Sepsis type: sepsis due to unspecified organism Qualified Code(s): A41.9 - Sepsis, unspecified organism (8) UTI (urinary tract infection) Status: Acute Qualifiers: Urinary tract infection type: acute pyelonephritis Qualified Code(s): N10 - Acute pyelonephritis Comment: has SPC+ - Plan wbc is down to 8k, hemostable -: edema is receding all over -: has blood in his catheter, likely might need bladder irrigation? -: dc plan per urology adv -: he did well post anesthesia with no untoward resp issues * . Continue elavil, baclofen, lantus, proscar, flomax and myrbetriq Urine culture is contaminated, may dc meropenem at dc and switch to quinlones/ sulfa x 5 days. Review of Systems - Medications/Allergies Allergies/Adverse Reactions: Allergies Allergy/AdvReac Type Severity Reaction Status Date / Time No Known Allergies Allergy Verified 04/15/13 00:07 Medications: Current Medications Acetaminophen (Tylenol) 650 mg PO Q4H PRN PRN Reason: Headache/Fever/Mild Pain (1-3) Last Admin: 03/12/19 23:29 Dose: 650 mg Allopurinol (Zyloprim) 300 mg PER TUBE DAILY [facility] Last Admin: 03/13/19 09:36 Dose: 300 mg Amitriptyline HCl (Elavil) 25 mg PO DAILY [facility] Last Admin: 03/13/19 09:36 Dose: 25 mg Baclofen (Lioresal) 10 mg PO TID [facility] Last Admin: 03/13/19 09:36 Dose: 10 mg Dextrose/Water (Dextrose 50%) 25 gm SLOW IVP PRN PRN PRN Reason: Hypoglycemia Famotidine (Pepcid) 20 mg PO BID [facility] Last Admin: 03/13/19 09:36 Dose: 20 mg Finasteride (Proscar) 5 mg PO DAILY [facility] Last Admin: 03/13/19 09:36 Dose: 5 mg Glucagon (Glucagon) 1 mg IM PRN PRN PRN Reason: Hypoglycemia Guaifenesin/Dextromethorphan (Robitussin Dm) 15 ml PO Q4H PRN PRN Reason: Cough Dextrose/Water (D5w) 1,000 mls @ 0 mls/hr IV .Q0M PRN PRN Reason: Hypoglycemia Insulin Glargine 15 units/ (Miscellaneous Medication) 0.15 mls @ 0 mls/hr SC BID [facility] Last Admin: 03/13/19 09:47 Dose: 0.15 mls Meropenem 1 gm/ Device 50 mls @ 100 mls/hr IVPB Q8HR [facility] Last Admin: 03/13/19 06:04 Dose: 50 mls Insulin Human Lispro (Humalog) 0 units SC .MODERATE SLIDING SC PRN PRN Reason: Moderate Correctional Scale Last Admin: 03/12/19 06:09 Dose: 2 unit Insulin Human Lispro (Humalog) 0 units SC .BEDTIME SLIDING SC PRN PRN Reason: Bedtime Correctional Scale Last Admin: 03/11/19 01:26 Dose: 2 unit Ketorolac Tromethamine (Toradol) 30 mg IVP Q6H PRN PRN Reason: Pain Stop: 03/15/19 20:49 Last Admin: 03/13/19 06:04 Dose: 30 mg Metoclopramide HCl (Reglan) 10 mg IVP Q6H PRN PRN Reason: Nausea/Vomiting Last Admin: 03/10/19 21:18 Dose: 10 mg Mirabegron (Myrbetriq Er) 25 mg PO DAILY [facility] Last Admin: 03/13/19 09:37 Dose: 25 mg Potassium Citrate/Citric Acid (Polycitra-K) 15 ml PER TUBE ACHS [facility] Last Admin: 03/13/19 06:04 Dose: 15 ml Sodium Chloride (Flush - Normal Saline) 10 ml IVF Q12HR [facility] Last Admin: 03/13/19 09:37 Dose: 10 ml Sodium Chloride (Flush - Normal Saline) 10 ml IVF PRN PRN PRN Reason: Saline Flush Tamsulosin HCl (Flomax) 0.4 mg PO HS [facility] Last Admin: 03/12/19 23:29 Dose: 0.4 mg Tamsulosin HCl (Flomax) 0.4 mg PO DAILY [facility] Last Admin: 03/13/19 09:36 Dose: 0.4 mg
[2019-03-13] MEDS: HumaLOG 300 UNITS/3 ML VIAL SC PRN ×2 (12:13→18:37)
[2019-03-13] MEDS ORDERED: Nystatin Powder 15 GM BOT TOP PRN (21:19)
[2019-03-14] MEDS: MEROPENEM 1 GM/50 ML 1 GM in Premix Bag 1 BAG IVPB SCH (05:32)
[2019-03-14] MEDS: Potassium Citrate 1100-334mg/5ml Oral Solution PER TUBE SCH ×2 (06:40→12:32)
[2019-03-14] MEDS: Amitriptyline HCl 25 MG TAB PO SCH (09:52)
[2019-03-14] MEDS: Baclofen 10 MG TAB PO SCH (09:52)
[2019-03-14] MEDS: Famotidine 20 MG TAB PO SCH (09:52)
[2019-03-14] MEDS: Insulin Glargine 15 UNITS in Pre-Filled Syringe 1 EACH SC SCH (09:52)
[2019-03-14] MEDS: Allopurinol 300 MG TAB PER TUBE SCH (09:52)
[2019-03-14] MEDS: Finasteride 5 MG TAB PO SCH (09:53)
[2019-03-14] MEDS: Tamsulosin HCl 0.4 MG CAP PO SCH (09:53)
[2019-03-14 11:46] VITALS: BP 143/89; TEMP 97.9
[2019-03-14] MEDS: HumaLOG 300 UNITS/3 ML VIAL SC PRN (12:32)
--- NOTE | 2019-03-14 12:42 | PDOC.PN ---
- Subjective Encounter Start Date: 03/14/19 Encounter Start Time: 09:45 Subjective: no abd pain, feels good -: urine cath is clear, no blood - Objective Resuscitation Status - Order Detail: 03/10/19 20:40 Resuscitation Status Routine Resuscitation Status: FULL: Full Resuscitation Discussed with: d/w sister and POA at bedside MAR Reviewed: Yes Vital Signs & Weight: Vital Signs (12 hours) Temp Pulse Resp BP Pulse Ox 03/14/19 11:45 97.9 F 92 18 143/89 H 92 L 03/14/19 08:06 98.7 F 98 20 112/76 94 L 03/14/19 03:08 97.8 F 91 16 113/79 95 Weight Admit Weight 192 lb 6.4 oz Weight 192 lb 6.4 oz Most Recent Monitor Data Heart Rate from ECG 104 NIBP 138/82 NIBP BP-Mean 100 Respiration from ECG 19 SpO2 94 I&O: 03/13/19 03/14/19 03/15/19 06:59 06:59 06:59 Intake Total 1231 1050 Output Total 700 1100 Balance 531 -50 Result Diagrams: 03/13/19 07:43 03/13/19 07:43 Additional Labs: Accuchecks 03/14/19 03/14/19 03/13/19 11:45 05:33 20:56 POC Glucose 207 H 146 H 209 H 03/13/19 17:48 POC Glucose 206 H Phys Exam - Physical Examination HEENT: PERRLA, moist MMs Neck: no JVD, supple Respiratory: no wheezing, no rales Cardiovascular: RRR, no significant murmur Gastrointestinal: soft, non-tender, no distention, positive bowel sounds spc+, peg+ Musculoskeletal: pulses present, edema present quadriplegia Psychiatric: A&O x 3 Dx/Plan (1) Right ureteral calculus Code(s): N20.1 - CALCULUS OF URETER Status: Acute Comment: s/p cystoscopy and stent (2) Ureteric colic Code(s): N23 - UNSPECIFIED RENAL COLIC Status: Resolved (3) Amyotrophic lateral sclerosis (ALS) Code(s): G12.21 - AMYOTROPHIC LATERAL SCLEROSIS Status: Chronic (4) Quadriparesis Code(s): G82.50 - QUADRIPLEGIA, UNSPECIFIED Status: Chronic Comment: sec to ALS (5) Dysphagia Code(s): R13.10 - DYSPHAGIA, UNSPECIFIED Status: Chronic Comment: has peg+ (6) DM type 2 (diabetes mellitus, type 2) Status: Chronic Qualifiers: Diabetes mellitus intermediate insulin use: with buttermaker helper use (7) Sepsis Code(s): A41.9 - SEPSIS, UNSPECIFIED ORGANISM Status: Resolved Qualifiers: Sepsis type: sepsis due to unspecified organism Qualified Code(s): A41.9 - Sepsis, unspecified organism (8) UTI (urinary tract infection) Status: Acute Qualifiers: Urinary tract infection type: acute pyelonephritis Qualified Code(s): N10 - Acute pyelonephritis Comment: has SPC+ - Plan hemostable -: urine is clear this am -: dc pt to snf, d/w pt and his sister * .
--- NOTE | 2019-03-14 21:28 | DIS ---
DATE OF ADMISSION: 03/10/2019 DATE OF DISCHARGE: 03/14/2019 DISCHARGE DISPOSITION: To [facility] in [place]. PRIMARY DISCHARGE DIAGNOSES: Right ureteral calculus with colic, status post cystoscopy and stent placement. He also had urethral dilatation done for stricture. SECONDARY DISCHARGE DIAGNOSES: 1. History of amyotrophic lateral sclerosis with quadriplegia. 2. Dysphagia with PEG tube. 3. Suprapubic catheter with sepsis and urinary tract infection secondary to obstruction. 4. Diabetes mellitus type 2. PROCEDURES DONE DURING HOSPITALIZATION: Abdominal and pelvic CAT scan done on the day of admission showed distal right ureteral calculus with mild right hydronephrosis, moderate amount of retained stool within the sigmoid colon. The patient had cystourethroscopy with right-sided ureteroscopy, right-sided stent placement, balloon dilatation of right ureteral stricture, suprapubic tube replacement, and multiple retrograde pyelograms of the right ureter, all done by Dr. Raulito Dumont on 03/12/2019. Blood cultures x2, no growth. Urine culture grew multiple organisms more than 100,000 colony-forming units per mL. White count had gone up to 20 on the with 25% bands and 53% neutrophils. Discharge white count is 8, H and H are 13 and 42, platelet count is 117. BUN 13, creatinine 0.5. INPATIENT CONSULTS: 1. Dr. Raulito Dumont for Urology. 2. Dr. Damon for Pulmonary Critical Care. DISCHARGE MEDICATIONS: 1. Amitriptyline 25 mg via PEG tube at bedtime. 2. Aspirin 81 mg daily. 3. Baclofen 20 mg 4 times daily. 4. Proscar 5 mg daily. 5. Lasix 20 mg twice daily. 6. Lantus 30 units subcu at bedtime. 7. Zanaflex 8 mg q.6 hourly p.r.n. 8. Ultram 50 mg q.4 hourly p.r.n. 9. Levaquin 500 mg p.o. daily for another 6 days. ALLERGIES: NO KNOWN DRUG ALLERGIES. DISCHARGE PLAN: The patient to follow up with Dr. Raulito Dumont for removal of stent as advised. He needs to follow up with his primary care physician in 1 week. BRIEF COURSE DURING HOSPITALIZATION: The patient initially was sent over from [facility] for complaints of abdominal discomfort. On arrival, the patient had CT scan of the abdomen and pelvis done, which showed right ureteral calculus with mild hydronephrosis. In view of the patient's quadriplegia with ALS, medical trial with IV fluids was done as the stone was 5.5 mm on the CAT scan. Despite aggressive hydration, the patient did not pass the stone and developed abdominal pain. He was seen by Dr. Raulito Dumont and has had cystourethroscopy done with stent placed. He has had a change of his suprapubic catheter as well at the same setting. Post-procedure, the patient had hematuria which was expected and this morning it is fully clear. Dr. Damon was consulted as the patient is quadriplegic requiring anesthesia for procedure in anticipation of possible respiratory failure postprocedure. He remained hemodynamically stable with no respiratory depression. He communicates well with his laptop computer using his eyes. All through his stay, his sister, Ms. Myrick was given updates. The patient needs to continue Levaquin for another 5 days. He also needs to follow up with Dr. Raulito Dumont for removal of stent, as advised. He is hemodynamically stable and will be shortly discharged back to halfway. A total of 35 minutes was spent on discharge plan. Please see a [id number] documentation for the day of discharge on [employer]. Job ID: [id number]
--- NOTE | 2019-03-16 14:06 | EKG ---
Test Reason : Blood Pressure : / mmHG Vent. Rate : 103 BPM Atrial Rate : 103 BPM P-R Int : 166 ms QRS Dur : 098 ms QT Int : 366 ms P-R-T Axes : 036 257 049 degrees QTc Int : 479 ms Sinus tachycardia Right superior axis deviation Abnormal ECG Confirmed by MONAE MORALES ([id number]), index editor MITCHELL WORTHY ([id number]) on 03/16/2019 2:06:22 PM Referred By: Confirmed By:MONAE MORALES
== END 2019-03-14 13:20 | DRG 659 ==
LOC: ERS 16:12 → OBSVTOIN 20:36 → SURG B 20:36 → IMCU/EMU 23:55 → SURG A 03-12 21:58
PROVIDERS: ADMIT Internal Medicine; ATTEND Internal Medicine
PROC: 0T768DZ Dilation of Right Ureter with Intraluminal Device, Via Natural or Artificial Opening Endoscopic (ICD-10-PCS; principal; 2019-03-12)
PROC: BT1DYZZ Fluoroscopy of Right Kidney, Ureter and Bladder using Other Contrast (ICD-10-PCS; 2019-03-12)
PROC: 0T9B80Z Drainage of Bladder with Drainage Device, Via Natural or Artificial Opening Endoscopic (ICD-10-PCS; 2019-03-12)
DX: T83.511A Infection and inflammatory reaction due to indwelling urethral catheter, initial encounter (principal); A41.9 Sepsis, unspecified organism; G82.50 Quadriplegia, unspecified; N13.6 Pyonephrosis; G12.21 Amyotrophic lateral sclerosis; F32.9 Major depressive disorder, single episode, unspecified; E11.9 Type 2 diabetes mellitus without complications; E78.5 Hyperlipidemia, unspecified; I10 Essential (primary) hypertension; N40.0 Benign prostatic hyperplasia without lower urinary tract symptoms; K21.9 Gastro-esophageal reflux disease without esophagitis; Z79.82 Long term (current) use of aspirin; Z79.899 Other long term (current) drug therapy; Z74.01 Bed confinement status; Z88.5 Allergy status to narcotic agent; Z79.4 Long term (current) use of insulin
CPT/HCPCS: 36415; 36416; 74177; 74420; 80048; 80053; 81003; 81015; 83690; 85025; 87040; 87077; 87086; 93005; 93010; 96361; 96365; 96375; C1758; C1769; J0696; J1815; J1885; J2001; J2060; J2185; J2270; J2405; J2704; J2765; J3010; J3490; Q9966

== ENCOUNTER 2019-03-21 10:29 | Outpatient (CLI) | payer MEDICARE, MEDICAID ==
--- NOTE | 2019-03-21 11:26 | CT ---
CT Stone Protocol: 03/21/2019 12:00 AM HISTORY: Right sided renal calculus COMPARISON: 03/10/2019 TECHNIQUE: Multiple contiguous axial images were obtained and a CT of the abdomen and pelvis without IV contrast . Coronal reformats were performed. FINDINGS: This examination is limited for the evaluation of solid organs and vascular structures due to the lac k of intravenous contrast. Lower Chest: Atelectasis in the lung bases. Abdomen: Liver: within normal limits. Bile Ducts: Normal caliber. Gallbladder: Surgically absent Pancreas: within normal limits. Spleen: within normal limits. Adrenals: within normal limits. Kidneys: No focal masses. Air is seen in the right renal collecting system from the ureteral stent. Pelvis: Reproductive Organs: No pelvic masses. Ureters: Right ureteral stent appears in good position. No renal or ureteral calcification identified . Bladder: There is a suprapubic tube in the urinary bladder Bowel: Normal caliber. Mesenteric Lymph Nodes: No enlarged mesenteric lymph nodes. Peritoneum: No ascites or free air, no fluid collection. Vessels: Normal caliber aorta Retroperitoneum: within normal limits. Abdominal Wall: within normal limits. Bones: Degenerative changes in the spine. A spinal stimulation device is seen in the midthoracic spin e. There appears to be stable loss of the posterior bony cortex of the iliac bones near the lesser rami. IMPRESSION: Post procedural changes involving the urinary bladder and right ureter without residual renal calcifi cation
== END 2019-03-21 10:30 | disposition home or self-care (01) ==
LOC: CT 10:29
PROVIDERS: ATTEND Urology
DX: N20.1 Calculus of ureter (principal); Z98.890 Other specified postprocedural states
CPT/HCPCS: 74176

== ENCOUNTER 2019-07-06 10:44 | Inpatient (IN) | payer MEDICARE, MEDICAID ==
[2019-07-06] MEDS ORDERED: Rocuronium Bromide 10 MG/ML (10ML VIAL) ONE (11:37)
[2019-07-06] MEDS ORDERED: Ondansetron PF 4 MG/2 ML Vial ONE (11:37)
[2019-07-06] MEDS ORDERED: PHENYLEPHRINE-NS 100 MCG/ML 10 ML SYRINGE ONE (11:37)
[2019-07-06] MEDS ORDERED: PROPOFOL 200 MG/20 ML VIAL ONE (11:37)
[2019-07-06] MEDS ORDERED: Lidocaine 1% PF 5 ML VIAL ONE (11:37)
[2019-07-06] MEDS ORDERED: ePHEDrine/0.9% NaCl/PF SYRINGE 50 mg/10 ml ONE (11:37)
--- NOTE | 2019-07-06 12:24 | RAD ---
EXAM: CHEST ONE VIEW HISTORY: Sepsis COMPARISON: 08/16/2013 FINDINGS: Cardiac silhouette is magnified by shallow depth inspiration and portable technique. There is increas e in perihilar interstitial densities which could be attributable to the depth of inspiration and portable technique resulting in accentuation of the bronchovascular markings. However, an element of pulmonary edema or infectious process cannot be excluded. Subsegmental bibasilar atelectasis is present. No other interval change. IMPRESSION: Limited examination due to depth of inspiration. There is an increase in bilateral perihilar intersti tial densities which is thought to be attributable to the depth of inspiration. However, infectious process or element of pulmonary edema cannot be excluded. A repeat PA chest x-ray with better depth o f inspiration is recommended.
--- NOTE | 2019-07-06 12:35 | CT ---
EXAM: Abdomen and pelvic CT scan with contrast: HISTORY: GI bleeding COMPARISON: 03/21/2019, 03/10/2019 FINDINGS: Bilateral linear and interstitial parenchymal changes and pleural-based parenchymal changes and minim al pleural thickening, stable Liver: Unremarkable. Gallbladder:Status post cholecystectomy. PEG tube in place. Pancreas:Unremarkable Spleen:Unremarkable. Adrenal glands:Unremarkable. Kidneys:No renal calculus or acute obstruction. No solid or cystic renal mass. No evidence for bowel obstruction. No CT evidence for acute appendicitis. Suprapubic Alatorre catheter in place. Circumscribed areas of cortical bone loss of the posterior bilateral ischial tuberosities possibly re lated to prior surgery. No associated mass or adjacent soft tissue abnormality. 0.8 cm diameter circumscribed defect in the cortex of the posterior aspect of the right femur just be low the level of the lesser trochanter without associated soft tissue abnormality, this is so well circumscribed and may represent a surgical defect. Reproductive system:Unremarkable No abscess, adenopathy, or abnormal fluid collection within the abdomen or pelvis. Fat-containing left inguinal hernia. IMPRESSION: No significant acute process in the abdomen or pelvis. Numerous other findings as above.
[2019-07-06 12:47] LABS: #Basophils 0.1 thou/uL (0.0-0.2); #Eosinphils 0.1 thou/uL (0.0-0.7); #Lymphocytes 2.1 thou/uL (1.20-3.40); #Monocytes 0.5 thou/uL (0.11-0.59); #Neutrophils 5.1 thou/uL (1.40-6.50); %Basophils 0.8 % (0.0-1.0); %Eosinophils 1.4 % (0.0-10.0); %Monocytes 5.8 % (0.0-10.0); Mean Corpuscular HGB CONC 34.3 g/dL (32.0-36.0); Mean Corpuscular Hemoglobin 32.2 pg (27.0-31.0); Mean Corpuscular Volume 93.8 fL (78.0-98.0); Mean Platelet Volume 9.4 fL (7.4-10.4); Platelet Count 193 thou/uL (130-400); RBC Distribution Width 12.1 % (11.5-14.5); White Blood Cell (WBC) Count 7.8 thou/uL (4.8-10.8)
[2019-07-06 12:53] LABS: INR-International Normal Ratio 1.1; Prothrombin Time 13.9 SEC (12.0-14.7)
[2019-07-06 12:54] LABS: PTT 32.8 SEC (22.9-36.1)
[2019-07-06 13:03] LABS: ALT (SGPT) 59 U/L (8-55); AST (SGOT) 29 U/L (5-34); Albumin 3.7 g/dL (3.5-5.0); Alkaline Phosphatase 130 U/L (40-110); Anion Gap 13 mmol/L (10-20); BUN (Urea Nitrogen) 16 mg/dL (8.4-25.7); Bilirubin, Total 0.4 mg/dL (0.2-1.2); Calc. Creatinine Clearance 0 mL/min (70-130); Calcium 8.7 mg/dL (7.8-10.44); Carbon Dioxide 21 mmol/L (22-29); Chloride 104 mmol/L (98-107); Estimated GFR-MDRD Greater than 90; Globulin 3.6 g/dL (2.4-3.5); Glucose 222 mg/dL (70-105); Potassium 3.7 mmol/L (3.5-5.1); Protein, Total 7.3 g/dL (6.0-8.3); Sodium 134 mmol/L (136-145)
[2019-07-06 13:19] LABS: Bacteria/HPF 3+ HPF (None Seen); Bilirubin Negative (Negative); Blood, Urine 2+ (Negative); Clarity Clear (Clear); Glucose, Urine (Dipstick) Greater than 1000 mg/dL (Negative); Leukocyte 500 Leu/uL (Negative); Nitrite Negative (Negative); Protein, Urine (Dipstick) 30 mg/dL (Neg-Trace); RBC/HPF Greater than 50 HPF (0-3); Squamous Epithelial None Seen HPF (0-3); Triple Phosphate Crystal Rare HPF (None Seen); Urobilinogen Normal mg/dL (Less than 2); WBC/HPF Greater than 50 HPF (0-3)
[2019-07-06] MEDS ORDERED: cefTRIAXone\\ROCEPHIN 1 GM VIAL ONE (13:36)
[2019-07-06] MEDS ORDERED: Pantoprazole 40 MG VIAL ONE (13:36)
[2019-07-06] MEDS ORDERED: Guaifenesin DM 100-10/5 ML UDCUP PO PRN (14:49)
[2019-07-06] MEDS ORDERED: Senokot S 8.6-50 MG TAB PO PRN (14:49)
[2019-07-06] MEDS ORDERED: Bisacodyl 10 MG SUPP PR PRN (14:49)
[2019-07-06] MEDS ORDERED: Acetaminophen 325 MG TAB PO PRN (14:49)
[2019-07-06] MEDS ORDERED: tiZANidine HCl 4 MG TAB PER TUBE PRN (14:49)
[2019-07-06] MEDS ORDERED: Sodium Chloride 0.9% 1,000 ML IV SCH (14:49)
[2019-07-06] MEDS ORDERED: Iopamidol-370 76% 500 ML 1 ML ONE (16:40)
[2019-07-06 16:59] VITALS: BMI 26.4
--- NOTE | 2019-07-06 17:08 | HP ---
REASON FOR ADMISSION: GI bleed. HISTORY OF PRESENTING ILLNESS: The patient was transferred from [facility] for bleeding through his PEG tube. Staff at the detention tried to check for residuals and found clemencia blood. He had 2 syringes drawn, both were fully bloody. They confirm this with blood occult test as well. The patient was transferred here. He has been tachycardic in the 120s to 130s. On arrival here, the patient had his H and H drawn, these were 17 and 49. Currently, he has clots coming out of his PEG tube. Has mild abdominal distention. No pain. Mr. Ronquillo communicates with his special computer. He uses his eyes and eyelids to communicate with his laptop. He is fully oriented. No nausea or vomiting. His last bowel movement was this morning, and it looked normal per sister. We will confirm this with the detention staff. PAST MEDICAL AND SURGICAL HISTORY: History of ALS with quadriplegia, bed-bound status, suprapubic catheter, quadriplegia due to ALS, PEG tube, septoplasty, dyslipidemia, hypertension, recurrent UTIs, ureteral calculus status post stent, diabetes mellitus type 2, and benign prostatic hypertrophy. CURRENT MEDICATIONS: 1. The patient has baclofen pump which is refilled every 4 months via his brush painter. 2. Lantus 30 units subcu at bedtime. 3. MiraLAX 17 g p.r.n. 4. Myrbetriq extended release 25 mg daily. 5. Finasteride 5 mg at bedtime. 6. Diphenhydramine 25 mg 3 times daily for itching. 7. Baclofen 20 mg 4 times daily for spasms from ALS. 8. Aspirin 81 mg p.o. daily. 9. Amitriptyline 25 mg p.o. at bedtime. 10. Ultram p.r.n. for pain. 11. Zanaflex 2 mg q.6 hourly p.r.n. for spasms. ALLERGIES: NO KNOWN DRUG ALLERGIES. PERSONAL HISTORY: The patient is a detention resident. Does not abuse alcohol or drugs. Lives at [facility] in [place]. FAMILY HISTORY: Mother at the age of 64 years. She has had history of AAA with rupture. Father at the age of 87 years. He has had history of prostate cancer with metastasis. CODE STATUS: Full. This was discussed with the patient. [id number] is his sister, Ms. Myrick. REVIEW OF SYSTEMS: To the extent possible is negative except for those mentioned above. CONSTITUTIONAL: Negative for weight loss or gain, ability to conduct usual activities. SKIN: Negative for rash, itching. EYES: Negative for double vision, pain. ENT/MOUTH: Negative for nose bleeding, neck stiffness, pain, tenderness. CARDIOVASCULAR: Negative for palpitations, dyspnea on exertion, orthopnea. RESPIRATORY: Negative for shortness of breath, wheezing, cough, hemoptysis, fever or night sweats. GASTROINTESTINAL: Negative for poor appetite, abdominal pain, heartburn, nausea, vomiting, constipation, or diarrhea. GENITOURINARY: Negative for urgency, frequency, dysuria, nocturia. MUSCULOSKELETAL: Negative for pain, swelling. NEUROLOGIC/PSYCHIATRIC: Negative for anxiety, depression. ALLERGY/IMMUNOLOGIC: Negative for skin rash, bleeding tendency. PHYSICAL EXAMINATION: GENERAL: The patient is a 53-year-old male who is currently not in any acute distress. VITAL SIGNS: Blood pressure 172/86, pulse 92 per minute, respiratory rate 14 per minute, temperature 98.9 degrees Fahrenheit, and saturating 94% on room air. NECK: Supple. No elevated JVD. HEENT: Eyes; extraocular muscles intact. Pupils reacting to light. Oral cavity, mucous membranes are dry. No exudates or congestion. CARDIOVASCULAR SYSTEM: S1 and heard. Tachycardic. No murmur. RESPIRATORY SYSTEM: Air entry 1+ bilateral. Scattered rhonchi plus no rales. ABDOMEN: Distended with no rigidity or guarding. Bowel sounds are heard. PEG tube is in place. EXTREMITIES: Mild peripheral edema. No calf tenderness. Peripheral pulses are 1+ bilateral. No ischemic ulcerations or gangrene. CENTRAL NERVOUS SYSTEM: The patient has static paralysis with quadriplegia due to ALS. He moves his neck and head freely. No new gross deficits noted. PSYCHIATRIC SYSTEM: The patient's mood is euthymic. No hallucinations or delusions. LABORATORY DATA: White count of 7, H and H 17 and 49, and platelet count is 193 with 65% neutrophils. PT/INR 13 and 1.1 and PTT 32. Sodium 134, serum bicarb 21, BUN 16, creatinine 0.6, serum glucose 222, ALT 59, alkaline phosphatase 130, total bilirubin 0.4, and albumin is 3.7. UA shows signs of UTI. Urine influenza A and B antigens are negative. IMAGING STUDIES: CT of the abdomen and pelvis done, shows no acute intraabdominal process. Chest x-ray done, shows poor inspiratory effort, otherwise no gross infiltrate. CLINICAL IMPRESSION AND PLAN: The patient will be admitted to medical floor for gastrointestinal bleed through, which is visible through the PEG tube. He has had clemencia blood with clots coming out of his PEG tube. He will be on Protonix drip, normal saline at 70 mL per hour q.6 hourly. H and H have spoken to Dr. Nnamdi Cabezas for Gastroenterology consultation. We will continue his baclofen, Elavil, tizanidine, and Ultram p.r.n. for spasms and pain as before. The patient has a suprapubic catheter, and his UA shows signs of urinary tract infection. It is unclear if this is invasive urinary tract infection at present. We will keep him n.p.o. for now until Gastroenterology sees him. I have discussed code status with the patient and his sister at bedside, and they want to be full code for now. Job ID: [id number]
--- NOTE | 2019-07-06 18:09 | CON ---
DATE OF CONSULTATION: 07/06/2019 REQUESTING PHYSICIAN: Dr. Elba Reyes. REASON FOR CONSULTATION: GI bleeding through the PEG tube. HISTORY OF PRESENT ILLNESS: Grey Ronquillo is a very pleasant 53-year-old man with a history of ALS. He initially had a PEG tube placed by my partner, Dr. Damon back in July 2013. He also has a history of diabetes. He has a suprapubic catheter. He reports that his PEG tube was changed out about 3 weeks ago at his facility. I do not have any record of this. At any rate, he has never really had any problems with the PEG tube, but this morning, during routine flushes, he was noted to have bright red blood return from the tube. This had never happened before. This has gone on with several flushes both at his facility and after his arrival here. I myself see red blood in the tube. The patient denies any abdominal pain or nausea with this. There is no blood coming out around the PEG site. He has had no melena or hematochezia. In fact, had a normal-appearing bowel movement earlier today. Upon presentation, labs demonstrated hemoglobin of 17.0, BUN only 16, creatinine 0.61. CT of the abdomen and pelvis showed no acute processes, and the PEG tube appears to be in right position. He does have some tachycardia with pulse up to 122, but normal blood pressure 122/91. He is otherwise asymptomatic and at his baseline. REVIEW OF SYSTEMS: Full review of systems including constitutional, head, eyes, ears, nose, throat, GI, , cardiovascular, respiratory, musculoskeletal, neurologic systems is negative except as noted in the HPI. PAST MEDICAL HISTORY: ALS, diabetes type 2, hyperlipidemia, hypertension, BPH, GERD, quadriplegia, PEG tube originally placed in [place] [address] Damon, suprapubic catheter, nephrolithiasis with ureteral stent in February 2019. SOCIAL HISTORY: No smoking, alcohol, or drug use. The patient communicates by use of the computer. FAMILY HISTORY: Noncontributory. ALLERGIES: NO KNOWN DRUG ALLERGIES. MEDICATIONS: 1. Finasteride. 2. Zanaflex. 3. Bisacodyl. 4. Myrbetriq. 5. Simethicone. 6. Tramadol. 7. Lantus. 8. Amitriptyline. 9. Aspirin 81 mg daily. 10. Diphenhydramine. INPATIENT MEDICATIONS: Protonix IV drip is being started. PHYSICAL EXAMINATION: VITAL SIGNS: Temperature 98.4, pulse 122, blood pressure 122/91, and 94% oxygen saturation on room air. GENERAL: A 53-year-old man, lying in bed comfortably in good spirits. MENTAL STATUS: He is alert, fully oriented. He can communicate by means of his computer. He is in no distress. SKIN: No jaundice. No rashes are palpable. Skin around the PEG site has some chronic excoriation, but no significant erythema. No streaking. HEENT: Eyes, no scleral icterus. Extraocular movements intact. ENT, mucous membranes moist. LYMPH: No submandibular or supraclavicular lymphadenopathy. Thyroid, nontender to palpation. HEART: Regular rate and rhythm. LUNGS: Clear to auscultation bilaterally. ABDOMEN: Soft. PEG tube in place. There is bright red blood evident within the tube when the cap is opened. It is a wide-o PEG tube. The external bumper was quite loose at 6 cm, so I tightened it down to 2.5 cm today, nontender to palpation around the PEG site throughout the abdomen. EXTREMITIES: No peripheral edema. VESSELS: Radial pulses, 2+ bilaterally. NEUROLOGIC: He has quadriplegia from his ALS. LABORATORY STUDIES: WBC 7.8, hemoglobin 17.0, platelets 193. INR 1.1. Sodium 134, potassium 3.7, BUN 16, creatinine 0.61, glucose 222, total bilirubin 0.4, alkaline phosphatase 130, AST 29, ALT 59, albumin 3.7. Lactic acid 1.0. Gastroccult positive. Flu swab negative. IMAGING STUDIES: Chest x-ray showed poor inspiration, but otherwise negative. CT of the abdomen and pelvis demonstrated no acute processes, PEG tube appears to be in appropriate position. ASSESSMENT AND PLAN: 1. Upper gastrointestinal bleeding. 2. Gastrostomy status. This is the patient's first ever episode of upper gastrointestinal bleeding, evidently his PEG tube was replaced at his facility 3 weeks ago. He is not having any other symptoms. He is tachycardic, but with stable blood pressure. No melena. BUN only 16 and hemoglobin 17. At this point, I agree with initiation of Protonix drip. Follow his hemodynamics status closely tonight. Trend the hemoglobin and hematocrit and transfuse if needed. We will plan to perform EGD tomorrow morning. Please call anytime if there is a significant change in the patient's clinical status or if he is felt to be bleeding more rapidly. If deteriorating anyway, we could potentially do this anytime overnight. 3. Amyotrophic lateral sclerosis. The patient is going to be higher risk for anesthesia for the procedure. I discussed this in detail with the patient and his sister. Notably, he was able to do well with just propofol sedation for ureteral stent placement earlier this year. Job ID: [id number]
[2019-07-06 18:11] LABS: Hemoglobin 14.4 g/dL (14.0-18.0)
[2019-07-06] MEDS: Baclofen 10 MG TAB PER TUBE SCH ×2 (18:13→22:17)
[2019-07-06] MEDS: diphenhydrAMINE 25 MG CAP PER TUBE SCH ×2 (18:14→22:17)
--- NOTE | 2019-07-06 18:50 | PDOC.EVN ---
Event Note - Event Note Event Note: Code bobby called for hematemesis Per nursing staff patient was coughing up blood clots. Patient admitted for GI bleed. GI had seen the patient few hours ago, recommended protonix drip. Per nursing staff, it has not been started yet. Patient reports dizziness, denies chest pain, shortness of breath, abdominal pain, nausea, or diarrhea. Vitals: BP in the 60's, temp afebrile, HR 130's, RR 18 General: patient appears pale and clammy CVS: sinus tachycardia, no murmurs rubs or gallops Lungs: CTAB Abdomen: + BS, soft, nontender, nondistended. PEG tube in place Extremities: no edema A/P: - will recheck CBC stat, CMP, lactate, chest X ray, EKG - patient should be transferred to [facility] for acute symptomatic GI bleed. Transfuse blood if hemoglobin < 7 or actively bleeding and hypotensive. Continue IV fliuds - start protonix drip - Case was called and plan for scope tonight. Keep NPO for now
[2019-07-06] MEDS ORDERED: Pantoprazole 80 MG in Sodium Chloride 0.9% 100 ML IVP SCH (19:00)
[2019-07-06] MEDS ORDERED: Fentanyl 100 MCG/2 ML VIAL ONE (19:00)
[2019-07-06 19:02] LABS: Lactic Acid 2.5 mmol/L (0.5-2.2)
[2019-07-06 19:06] LABS: ALT (SGPT) 49 U/L (8-55); AST (SGOT) 23 U/L (5-34); Albumin 3.2 g/dL (3.5-5.0); Alkaline Phosphatase 107 U/L (40-110); Anion Gap 13 mmol/L (10-20); BUN (Urea Nitrogen) 24 mg/dL (8.4-25.7); Bilirubin, Total 0.5 mg/dL (0.2-1.2); Calc. Creatinine Clearance 161 mL/min (70-130); Calcium 7.8 mg/dL (7.8-10.44); Carbon Dioxide 16 mmol/L (22-29); Chloride 113 mmol/L (98-107); Estimated GFR-MDRD Greater than 90; Globulin 3.1 g/dL (2.4-3.5); Glucose 326 mg/dL (70-105); Potassium 4.6 mmol/L (3.5-5.1); Protein, Total 6.3 g/dL (6.0-8.3); Sodium 137 mmol/L (136-145)
[2019-07-06] MEDS ORDERED: Pantoprazole 80 MG, Admixture Fee 1 EACH in Sodium Chloride 0.9% 100 ML IVP SCH (19:15)
[2019-07-06 19:22] LABS: Band 12 % (5-11); Hemoglobin 14.1 g/dL (14.0-18.0); Lymphocytes 18 % (21-51); MDiff Complete? YES; Mean Corpuscular HGB CONC 34.2 g/dL (32.0-36.0); Mean Corpuscular Hemoglobin 33.1 pg (27.0-31.0); Mean Corpuscular Volume 96.8 fL (78.0-98.0); Mean Platelet Volume 9.8 fL (7.4-10.4); Monocytes 4 % (0-10); Neutrophil 34 % (42-75); Platelet Count 322 thou/uL (130-400); Platelet Morphology Comment Appears Adequate; Polychromasia SLIGHT = 2-3 cells (100X) (0-2/hpf); RBC Distribution Width 12.1 % (11.5-14.5); Reactive Lymphocytes 32 % (0-10); Red Blood Cell (RBC) Count 4.26 mill/uL (4.70-6.10); White Blood Cell (WBC) Count 17.9 thou/uL (4.8-10.8)
--- NOTE | 2019-07-06 19:29 | RAD ---
EXAM: Portable chest PROVIDED CLINICAL HISTORY: Hypotension COMPARISON: 07/06/2019 12:14 PM FINDINGS: Significant interval change with respect to the prior examination is not apparent. External defibrill ator pad overlies the left chest. Catheter type density overlying the midline abdomen and lower chest is presumably external to the patient. IMPRESSION: As above.
[2019-07-06] MEDS ORDERED: Albumin 5% 500 ML ONE (19:30)
[2019-07-06] MEDS ORDERED: Albumin 25% 100 ML ONE (19:30)
[2019-07-06] MEDS ORDERED: Phenylephrine HCL 10 MG/ML VIAL ONE (19:42)
[2019-07-06] MEDS ORDERED: Propofol 1,000 MG/100 ML VIAL IV ONE (20:56)
[2019-07-06] MEDS: Sodium Chloride 0.9% 1,000 ML IV SCH (21:04)
[2019-07-06] MEDS ORDERED: DISCONTINUE PREVIOUS NARCOTIC PAIN MEDICATIONS AND BENZODIAZEPINES FS SCH (21:06)
[2019-07-06] MEDS ORDERED: Propofol BOLUS 1,000 MG/100 ML VIAL IV PRN (21:06)
[2019-07-06] MEDS ORDERED: Fentanyl BOLUS 250 ML IVPB PRN (21:06)
[2019-07-06] MEDS ORDERED: Lorazepam 2 MG/ML VIAL SLOW IVP PRN (21:06)
[2019-07-06] MEDS ORDERED: fentaNYL Citrate/PF 2,000 MCG in Sodium Chloride 0.9% 60 ML IV SCH (21:06)
[2019-07-06] MEDS ORDERED: Propofol 1,000 MG/100 ML VIAL IV PRN (21:06)
[2019-07-06] MEDS ORDERED: Morphine 2 MG/ML SYRINGE SLOW IVP PRN (21:06)
[2019-07-06 21:52] LABS: Actual Bicarbonate (HCO3a) 19.2 mEq/L (22-28); Base Excess (BEa) -6.3 mEq/L (-2.0 to +3.0); CO2 Tension 37.8 mmHg (35.0-45.0); Calcium, Ionized 1.08 mmol/L (1.12-1.30); Carboxyhemoglobin (COHb) 0.5 gm% (0.0-3.0); Hemoglobin (Hb) 10.4 g/dL (14.0-18.0); O2 Tension (PaO2) 101.7 mmHg (80.0-100.0); Potassium - ABG Lab 3.94 mmol/L (3.70-5.30); pH, Arterial 7.32 (7.35-7.45)
[2019-07-06 22:00] LABS: Puncture Site LBA
[2019-07-06] MEDS: Amitriptyline HCl 25 MG TAB PER TUBE SCH (22:17)
--- NOTE | 2019-07-06 22:33 | OP ---
DATE OF PROCEDURE: 07/06/[address] SURGEON: None. PROCEDURE PERFORMED: EGD with control of hemorrhage. INDICATION: Upper gastrointestinal bleeding, with hemodynamic instability and acute hemoglobin drop from 17-14 over 6 hours. MEDICATIONS: See anesthesia record. FINDINGS: After discussion of the risks, benefits, and alternatives of the procedure, informed consent was obtained and witnessed. Pre-endoscopic cardiopulmonary examination was satisfactory. Time-out was performed before sedation was achieved. Sedation was achieved with Anesthesia assistance in the endoscopy unit. The patient was intubated for airway protection. A Pentax adult therapeutic upper endoscope was placed into the oropharynx and passed through the cricopharyngeus under direct visualization. There was blood refluxing from the stomach into the esophagus, but the entire esophageal mucosa was able to be examined. There was no evidence of any esophageal varices. No evidence of any mucosal abnormality in the esophagus. The endoscope was advanced into the stomach. There was a large amount of fresh blood and blood clots filling up the entire gastric fundus and also coating the entire rest of the stomach, making visualization difficult. An extensive amount of time was spent irrigating and suctioning out the blood clots and fresh blood, in order to be able to inspect the entire gastric mucosa. In the end, this was able to be achieved. The endoscope during this time was passed through the pylorus and into the first and second portions of the duodenum, which appeared normal. Attention was directed toward the internal bumper of his PEG tube. Careful inspection underneath the bumper demonstrated no mucosal abnormalities. Along the gastric incisura, which is directly across from the internal bumper of the PEG tube, there is a large ulceration. There was a very large adherent clot and active bleeding around the base of the clot. There were no other bleeding lesions identified and this is felt to be the source of his bleeding episode. I injected 10 mL of epinephrine submucosally around the ulcer site in a four quadrant fashion with good blanching effect. I then used a 10-Y[place] Gold probe to pry the clot off the base of the ulcer. Once the clot was pried off, the active bleeding increased. I then used the Gold probe to extensively cauterize the ulcer base. In this fashion, good hemostasis was achieved. I spent at least 20 more minutes washing out the stomach and suctioning in order to get a good examination of the fundus. During all this time, there was no evidence of any rebleeding from that ulcer site. It is possible that this incisura ulcer represents erosion from mechanical rubbing of the internal bumper, as when I evaluated the patient earlier today, his external bumper was way too loose at a distance of 6 cm, rather than 2 cm where it should have been. The upper endoscope was completely withdrawn and the patient allowed to recover. The external bumper was affixed at a distance of 2 cm. The patient tolerated the procedure well. There were no immediate postprocedure complications. The plan is for him to remain intubated and be transferred up to the CCU. RECOMMENDATIONS: 1. Continue the IV PPI continuous infusion. 2. Otherwise remain n.p.o., hold tube feeds tomorrow. 3. Monitor the H and H serially, monitor hemodynamics closely in the ICU. 4. Transfuse as needed. 5. Check H. pylori serology. 6. GI will continue to follow. Please call anytime with questions or concerns or changes in his clinical status. Job ID: [id number]
[2019-07-07 00:47] LABS: Hemoglobin 9.2 g/dL (14.0-18.0)
[2019-07-07] MEDS: Pantoprazole 80 MG in Sodium Chloride 0.9% 100 ML IVPB SCH ×2 (04:23→14:26)
[2019-07-07] MEDS: Sodium Chloride 0.9% 1,000 ML IV SCH ×3 (06:16→20:39)
[2019-07-07 06:53] LABS: Hemoglobin 9.1 g/dL (14.0-18.0)
[2019-07-07 07:14] LABS: Anion Gap 12 mmol/L (10-20); BUN (Urea Nitrogen) 18 mg/dL (8.4-25.7); Calc. Creatinine Clearance 184 mL/min (70-130); Calcium 7.7 mg/dL (7.8-10.44); Carbon Dioxide 20 mmol/L (22-29); Chloride 115 mmol/L (98-107); Estimated GFR-MDRD Greater than 90; Glucose 179 mg/dL (70-105); Sodium 143 mmol/L (136-145)
[2019-07-07] MEDS: Baclofen 10 MG TAB PER TUBE SCH ×5 (08:47→20:39)
--- NOTE | 2019-07-07 08:52 | PRG ---
DATE OF SERVICE: 07/07/2019 SUBJECTIVE: Mr. Ronquillo has done well overnight following his EGD. His tachycardia has improved. Blood pressures have stabilized. Hemoglobin declined precipitously from 17 to 9.2 last night, but this morning is stable at 9.1. No further hematemesis. He remains on the ventilator at this time. OBJECTIVE: VITAL SIGNS: Pulse 102, blood pressure 120/73, temperature 98.5, 98% oxygen saturation on ventilator. GENERAL: No acute distress. Awake, can communicate by nodding and shaking his head, appears fairly comfortable. HEART: Regular, borderline tachycardia. LUNGS: Clear to auscultation bilaterally. ABDOMEN: Soft, nontender to palpation. EXTREMITIES: No peripheral edema. LABORATORY STUDIES: Hemoglobin dropped from 17 to 9.2 over 12 hours yesterday, but now is stable this morning at 9.1. WBC 17.9, platelets 322. INR 1.1. Sodium 143, potassium 4.0, BUN 18, creatinine 0.55, glucose 179. ASSESSMENT AND PLAN: 1. Gastric ulcer with active hemorrhage, status post esophagogastroduodenoscopy with epinephrine injection and bipolar cautery applied last night, with good hemostasis achieved. 2. Acute blood loss anemia, quite significant yesterday. Stabilized today following endoscopic intervention. The patient has not required blood transfusion to this point. He is hemodynamically stabilized. H pylori serology has been ordered and is now pending. Continue on the IV Protonix infusion today. Medications could be given through his PEG tube, but I would still hold off on tube feeds for today. Could start those tomorrow if there is no further evidence of bleeding. Job ID: [id number]
[2019-07-07] MEDS ORDERED: Dextrose 50% Abboject 50 ML SYRINGE SLOW IVP PRN (10:36)
[2019-07-07] MEDS ORDERED: Dextrose 5% in Water 1,000 ML IV PRN (10:36)
--- NOTE | 2019-07-07 12:04 | PDOC.HOSPP ---
- Subjective Encounter Date: 07/07/19 Encounter Time: 10:00 Subjective: awake on vent not in distress - Objective Vital Signs & Weight: Vital Signs (12 hours) Temp Pulse Resp BP Pulse Ox 07/07/19 10:23 111 H 22 H 96 07/07/19 08:00 98.3 F 18 07/07/19 07:12 108 H 120/73 07/07/19 06:00 14 07/07/19 04:00 12 07/07/19 03:00 98.5 F 07/07/19 02:00 12 Weight Weight 189 lb 5 oz Most Recent Monitor Data Heart Rate from ECG 110 NIBP 146/80 NIBP BP-Mean 102 Respiration from ECG 15 SpO2 97 I&O: 07/06/19 07/07/19 07/08/19 06:59 06:59 06:59 Intake Total 801.9 120 Output Total 2320 740 Balance -1518.1 -620 Result Diagrams: 07/07/19 06:44 07/07/19 06:44 Additional Labs: Accuchecks 07/06/19 07/06/19 18:33 16:40 POC Glucose 336 H 257 H Hospitalist ROS - Medication Medications: Active Medications Generic Name Dose Route Start Last Admin Trade Name Freq PRN Reason Stop Dose Admin Amitriptyline HCl 25 mg 07/06/19 21:00 07/06/19 22:17 Elavil PER TUBE Not Given HS MARYANNE Baclofen 20 mg 07/06/19 17:00 07/07/19 09:41 Lioresal PER TUBE 20 mg QID MARYANNE Administration Pantoprazole Sodium 80 mg/ 100 mls @ 10 mls/hr 07/06/19 15:00 07/07/19 04:23 Sodium Chloride IVPB 100 mls INF MARYANNE Administration Sodium Chloride 1,000 mls @ 100 mls/hr 07/06/19 19:15 07/07/19 08:36 Normal Saline 0.9% IV 1,000 mls .Q10H MARYANNE Administration - Exam General Appearance: awake alert Eye: PERRL, anicteric sclera ENT: no oropharyngeal lesions, moist mucosa Neck: supple, no JVD Heart: no murmur, no gallops Respiratory: no wheezes, no rales Gastrointestinal: soft, normal bowel sounds, distended Extremities: no cyanosis, 1+ LE edema Neurological - other findings: quadriplegia Psychiatric: normal affect Hosp A/P (1) Acute blood loss anemia Code(s): D62 - ACUTE POSTHEMORRHAGIC ANEMIA Status: Acute (2) GI bleed Code(s): K92.2 - GASTROINTESTINAL HEMORRHAGE, UNSPECIFIED Status: Acute Qualifiers: GI bleed type/associated pathology: gastrointestinal hemorrhage with hematemesis Qualified Code(s): K92.0 - Hematemesis (3) Acute respiratory failure with hypoxia Code(s): J96.01 - ACUTE RESPIRATORY FAILURE WITH HYPOXIA Status: Acute (4) Amyotrophic lateral sclerosis (ALS) Code(s): G12.21 - AMYOTROPHIC LATERAL SCLEROSIS Status: Chronic (5) DM type 2 (diabetes mellitus, type 2) Status: Chronic Qualifiers: Diabetes mellitus long term care social worker insulin use: with long term care social worker use (6) Quadriparesis Code(s): G82.50 - QUADRIPLEGIA, UNSPECIFIED Status: Chronic - Plan is on protonix drip weaning per pulm adv hemoglobin stable around 9g now continue baclofen, elavil, ultram, fentanyl d/w patient and sister at bedside hemostable
--- NOTE | 2019-07-07 12:11 | CON ---
DATE OF CONSULTATION: 07/07/2019 SERVICE: Pulmonary Medicine. REASON FOR CONSULTATION: ICU patient. HISTORY OF PRESENT ILLNESS: The patient is a 53-year-old white male with past medical history significant for PEG tube placement secondary to ALS. He came into the hospital with complaints of a GI bleed. Originally, it was thought to be quite slow. That being said, he vomited up significant amounts of blood, and our time table for an EGD was advanced. Because he has ALS, poor respiratory status, and the timing of the EGD, he was appropriately left on mechanical ventilation overnight. This morning, he is awake, cool, calm, and collected. He does have a high risk of rebleed, but a repeat EGD is not being considered currently. He denies any current fevers, chills, or abdominal discomfort. He is not having any chest discomfort. He is on a spontaneous breathing trial currently, and pulling very good volumes. His negative inspiratory force is actually acceptable. He is not able to communicate and has quadriplegia and is essentially bedbound at this point. Otherwise, he is in his usual state of health. PAST MEDICAL HISTORY: 1. ALS. 2. Quadriplegia secondary to #1. 3. Dyslipidemia. 4. Hypertension. 5. Type 2 diabetes mellitus. 6. BPH. PAST SURGICAL HISTORY: 1. PEG tube placement. 2. History of septoplasty. 3. Suprapubic catheter placement. SOCIAL HISTORY: He lives at [facility] in [facility]. He has no access to alcohol, tobacco, or illicit drugs. He has no exposure to chemicals, dust, asbestos, or tuberculosis. FAMILY HISTORY: Noncontributory. ALLERGIES: NO KNOWN DRUG ALLERGIES. MEDICATIONS: List of his inpatient medications were reviewed. No specific updates were made at this time. REVIEW OF SYSTEMS: This cannot be obtained as the patient is currently without his speaking device. PHYSICAL EXAMINATION: VITAL SIGNS: Afebrile, pulse 94, blood pressure 108/62, respirations 12, saturation 96% and currently on 24% FiO2, delivered via mechanical ventilator with a PEEP of 5. GENERAL: The patient is awake and alert, in no apparent distress. LUNGS: Decent air entry. Rhonchi are present, but he has a surprisingly good cough. No prolonged expiratory phase or wheezing is appreciated. HEART: Normal rate. Regular. ABDOMEN: Soft, nontender, and nondistended. Bowel sounds are positive. MUSCULOSKELETAL: No cyanosis or clubbing. There is no pitting in the bilateral lower extremities. NEUROLOGIC: Grossly nonfocal. LABORATORY DATA: Hemoglobin last night was 9.2, and this morning is 9.1, his baseline hemoglobin was 17 on presentation. INR 1.1. A pH 7.32, pCO2 of 37, and pO2 of 101. Chloride 115. Basic metabolic profile is otherwise unremarkable. Calcium 7.7. Liver function studies are unremarkable. Lactate went up to 2.5 around the time of this severe event. Urinalysis is positive for red blood cells and white blood cells, leukocyte esterase is positive, though nitrites are unremarkable. He has glycosuria and minimal proteinuria, 3+ bacteria present. Blood cultures x2 are unremarkable. Influenza A and B are negative. ASSESSMENT: 1. Acute respiratory failure secondary to inability to protect airway, resolved. 2. Acute blood loss anemia. 3. Peptic ulcer disease. 4. Amyotrophic lateral sclerosis status post suprapubic catheter and percutaneous endoscopic gastrostomy tube. 5. Likely colonization of urine as he does not have any signs of systemic inflammatory response syndrome on presentation to the hospital. DISCUSSION AND PLAN: The patient is doing absolutely fantastic. We will put him on a spontaneous breathing trial. At the end of it, if he meets criteria, extubation will be considered. Pulmonary/Critical Care will continue to follow along while the patient remains in this location. He needs to stay in the ICU for an additional night as he has a high-risk lesion for rebleed. Pulmonary/Critical Care will follow. CRITICAL CARE TIME: 30 minutes. Job ID: [id number]
[2019-07-07] MEDS: HumaLOG 300 UNITS/3 ML VIAL SC PRN (12:16)
[2019-07-07] MEDS: Amitriptyline HCl 25 MG TAB PER TUBE SCH (20:39)
[2019-07-08] MEDS: Pantoprazole 80 MG in Sodium Chloride 0.9% 100 ML IVPB SCH ×3 (00:49→21:42)
[2019-07-08 05:56] LABS: #Eosinphils 0.1 thou/uL (0.0-0.7); #Lymphocytes 2.7 thou/uL (1.20-3.40); #Monocytes 0.4 thou/uL (0.11-0.59); #Neutrophils 2.8 thou/uL (1.40-6.50); %Basophils 0.3 % (0.0-1.0); %Eosinophils 2.2 % (0.0-10.0); %Lymphocytes 44.8 % (21.0-51.0); %Monocytes 6.3 % (0.0-10.0); %Neutrophils 46.4 % (42.0-75.0); Hemoglobin 8.2 g/dL (14.0-18.0); Mean Corpuscular HGB CONC 34.1 g/dL (32.0-36.0); Mean Corpuscular Hemoglobin 32.5 pg (27.0-31.0); Mean Corpuscular Volume 95.4 fL (78.0-98.0); Mean Platelet Volume 9.1 fL (7.4-10.4); Platelet Count 142 thou/uL (130-400); RBC Distribution Width 12.1 % (11.5-14.5); Red Blood Cell (RBC) Count 2.52 mill/uL (4.70-6.10); White Blood Cell (WBC) Count 6.1 thou/uL (4.8-10.8)
[2019-07-08] MEDS: Sodium Chloride 0.9% 1,000 ML IV SCH ×2 (05:58→18:36)
[2019-07-08 06:18] LABS: Anion Gap 13 mmol/L (10-20); BUN (Urea Nitrogen) 9 mg/dL (8.4-25.7); Calc. Creatinine Clearance 207 mL/min (70-130); Calcium 7.9 mg/dL (7.8-10.44); Carbon Dioxide 18 mmol/L (22-29); Chloride 114 mmol/L (98-107); Estimated GFR-MDRD Greater than 90; Glucose 94 mg/dL (70-105); Potassium 3.1 mmol/L (3.5-5.1); Sodium 142 mmol/L (136-145)
[2019-07-08 06:20] LABS: Phosphorus 1.8 mg/dL (2.3-4.7)
[2019-07-08] MEDS ORDERED: Potassium Chloride 40 MEQ in Sodium Chloride 0.9% 250 ML 250 ML IVPB PRN (06:27)
[2019-07-08] MEDS ORDERED: CCU ELECTROLYTE REPLACEMENT PROTOCOL FS PRN (06:27)
[2019-07-08] MEDS ORDERED: Potassium Phosphate 15 MMOL in Sodium Chloride 0.9% 250 ML 250 ML IV PRN (06:27)
[2019-07-08] MEDS ORDERED: PHOS-NAK 1 PKT PACK PO PRN ×2 (06:27)
[2019-07-08] MEDS ORDERED: Potassium Phosphate 12 MMOL in Sodium Chloride 0.9% 250 ML 250 ML IV PRN (06:27)
[2019-07-08] MEDS ORDERED: Magnesium Oxide 400 MG TAB PO PRN ×2 (06:27)
[2019-07-08] MEDS ORDERED: Potassium Chloride 20 MEQ TAB PO PRN (06:27)
[2019-07-08] MEDS ORDERED: Potassium Chloride 40 MEQ in Premix Bag 1 BAG IVPB PRN (06:27)
[2019-07-08] MEDS ORDERED: Potassium Phosphate 9 MMOL in Sodium Chloride 0.9% 100 ML IVPB PRN (06:27)
[2019-07-08] MEDS ORDERED: Magnesium 2 GM/50 ML 2 GM in Premix Bag 1 BAG IVPB PRN (06:27)
--- NOTE | 2019-07-08 09:12 | PRG ---
DATE OF SERVICE: 07/08/2019 SUBJECTIVE: Grey Ronquillo this morning is awake, alert, and responsive. He is talking with the help of his computer. The patient has ALS, quadriplegic. PEG in place. Alatorre in place. OBJECTIVE: VITAL SIGNS: Pulse 103, blood pressure 114/56, respiratory rate 18, saturations 96%. GENERAL: He denies any pain or discomfort. CHEST: Reveals decreased breath sounds. No wheezing. CARDIAC: Normal S1, S2. No gallops. ABDOMEN: No mass. ASSESSMENT AND PLAN: Upper gastrointestinal bleed status post endoscopy, ALS, quadriplegic, recurrent colonization, urinary tract infection. His chest x-ray was otherwise unremarkable, elevated hemidiaphragms from poor inspiration. His lab appears to be stable. Hemoglobin and hematocrit are 8 and 25, platelet count normal. GI bleed stable, ALS. He can be transferred out of the ICU. Continue supportive care. Disposition as per GI and primary care physician. Job ID: [id number]
--- NOTE | 2019-07-08 09:34 | PRG ---
DATE OF SERVICE: 07/08/2019 SUBJECTIVE: Mr. Ronquillo says he is feeling well. He denies any abdominal pain. There has been no vomiting. No melena. He has remained hemodynamically stable just with some mild persistent tachycardia. Hemoglobin is overall stable, slightly down to 8.2 this morning. OBJECTIVE: VITAL SIGNS: Heart rate 102, blood pressure 114/73, 96% oxygen saturation on room air, and temperature is 98.2. GENERAL: No acute distress. HEART: Regular rate and rhythm. LUNGS: Clear to auscultation bilaterally. ABDOMEN: Bowel sounds present. Soft and nontender to palpation. PEG site looks good. EXTREMITIES: No peripheral edema. LABORATORY STUDIES: Hemoglobin 8.2, WBC down to 6.1, and platelets 142. Sodium 142, potassium 3.1, BUN down to 9, and creatinine 0.49. ASSESSMENT AND PLAN: 1. Gastric ulcer at the incisura, with active hemorrhage in visible vessel, treated with epinephrine injection and bipolar cautery two days ago on 07/06/2019. 2. Acute blood loss anemia, now stabilized. The patient is doing well. I see no evidence of recurrent bleeding. Some mild hemoglobin decline today is probably dilutional. Continue to monitor closely. Continue the IV proton pump inhibitor today, and on hospital discharge needs transition to twice daily proton pump inhibitor dosing through the percutaneous endoscopic gastrostomy tube for at least the next couple of months. Tube feeds can be resumed today. Helicobacter pylori serology is still pending. Job ID: [id number]
[2019-07-08] MEDS: Baclofen 10 MG TAB PER TUBE SCH ×4 (09:44→21:29)
--- NOTE | 2019-07-08 14:14 | PDOC.HOSPP ---
- Subjective Encounter Date: 07/08/19 Encounter Time: 08:40 Subjective: awake, not in distress, is listening to music no hematemesis. No bm yet - Objective Vital Signs & Weight: Vital Signs (12 hours) Temp Pulse Ox 07/08/19 12:00 98.3 F 07/08/19 08:15 98 07/08/19 07:00 98.0 F 07/08/19 04:00 98.2 F Weight Admit Weight 189 lb 5 oz Weight 189 lb 5 oz Most Recent Monitor Data Heart Rate from ECG 101 NIBP 119/67 NIBP BP-Mean 84 Respiration from ECG 18 SpO2 96 I&O: 07/07/19 07/08/19 07/09/19 06:59 06:59 06:59 Intake Total 801.9 2831 200 Output Total 2320 2545 Balance -1518.1 286 200 Result Diagrams: 07/08/19 05:31 07/08/19 05:31 Additional Labs: Accuchecks 07/08/19 07/07/19 07/07/19 05:34 23:48 16:16 POC Glucose 106 132 H 152 H Hospitalist ROS - Medication Medications: Active Medications Generic Name Dose Route Start Last Admin Trade Name Freq PRN Reason Stop Dose Admin Amitriptyline HCl 25 mg 07/06/19 21:00 07/07/19 20:39 Elavil PER TUBE 25 mg HS MARYANNE Administration Baclofen 20 mg 07/06/19 17:00 07/08/19 13:01 Lioresal PER TUBE 20 mg QID MARYANNE Administration Pantoprazole Sodium 80 mg/ 100 mls @ 10 mls/hr 07/06/19 15:00 07/08/19 13:01 Sodium Chloride IVPB 100 mls INF MARYANNE Administration Sodium Chloride 1,000 mls @ 100 mls/hr 07/06/19 19:15 07/08/19 05:58 Normal Saline 0.9% IV 1,000 mls .Q10H MARYANNE Administration Insulin Human Lispro 0 units 07/07/19 10:36 07/07/19 12:16 Humalog SC 4 unit .MODERATE SLIDING SC PRN Administration Moderate Correctional Scale - Exam General Appearance: NAD, awake alert Eye: PERRL, anicteric sclera ENT: no oropharyngeal lesions, moist mucosa Neck: supple, no JVD Heart: RRR, no murmur Respiratory: no wheezes, no rales Gastrointestinal: soft, non-tender, normal bowel sounds, distended Gastrointestinal - other findings: peg+, spc+ Extremities: no cyanosis, 1+ LE edema Neurological - other findings: quadriplegia Psychiatric: A&O x 3 Hosp A/P (1) Acute blood loss anemia Code(s): D62 - ACUTE POSTHEMORRHAGIC ANEMIA Status: Acute (2) GI bleed Code(s): K92.2 - GASTROINTESTINAL HEMORRHAGE, UNSPECIFIED Status: Acute Qualifiers: GI bleed type/associated pathology: gastrointestinal hemorrhage with hematemesis Qualified Code(s): K92.0 - Hematemesis (3) Acute respiratory failure with hypoxia Code(s): J96.01 - ACUTE RESPIRATORY FAILURE WITH HYPOXIA Status: Resolved (4) Amyotrophic lateral sclerosis (ALS) Code(s): G12.21 - AMYOTROPHIC LATERAL SCLEROSIS Status: Chronic (5) DM type 2 (diabetes mellitus, type 2) Status: Chronic Qualifiers: Diabetes mellitus residential insulin use: with residential use (6) Quadriparesis Code(s): G82.50 - QUADRIPLEGIA, UNSPECIFIED Status: Chronic - Plan is on protonix drip got extubated 07/07 hemoglobin stable around 9g now continue baclofen, elavil, ultram, fentanyl december tx to [facility] floor, to start peg feeding from today around 30mls/hr and increase as tolerated to goal hemostable
--- NOTE | 2019-07-08 16:56 | EKG ---
Test Reason : Blood Pressure : / mmHG Vent. Rate : 129 BPM Atrial Rate : 129 BPM P-R Int : 138 ms QRS Dur : 080 ms QT Int : 320 ms P-R-T Axes : 041 256 056 degrees QTc Int : 468 ms Sinus tachycardia Right superior axis deviation Pulmonary disease pattern Poor anterior R wave progression Abnormal ECG When compared with ECG of 10-MAR-2019 21:24, No significant change was found Confirmed by DR. Shahnaz EMERSON ([id number]) on 07/08/2019 4:55:24 PM Referred By: Confirmed By:DR. Shahnaz EMERSON
[2019-07-08] MEDS: Amitriptyline HCl 25 MG TAB PER TUBE SCH (21:29)
[2019-07-09] MEDS: HumaLOG 300 UNITS/3 ML VIAL SC PRN ×3 (05:52→17:40)
[2019-07-09 06:31] LABS: Anion Gap 13 mmol/L (10-20); BUN (Urea Nitrogen) 8 mg/dL (8.4-25.7); Calc. Creatinine Clearance 184 mL/min (70-130); Calcium 8.3 mg/dL (7.8-10.44); Carbon Dioxide 18 mmol/L (22-29); Chloride 112 mmol/L (98-107); Estimated GFR-MDRD Greater than 90; Glucose 150 mg/dL (70-105); Phosphorus 1.8 mg/dL (2.3-4.7); Potassium 3.6 mmol/L (3.5-5.1); Sodium 139 mmol/L (136-145)
[2019-07-09 07:56] LABS: #Eosinphils 0.3 thou/uL (0.0-0.7); #Lymphocytes 2.6 thou/uL (1.20-3.40); #Monocytes 0.5 thou/uL (0.11-0.59); #Neutrophils 3.5 thou/uL (1.40-6.50); %Basophils 0.5 % (0.0-1.0); %Eosinophils 4.1 % (0.0-10.0); %Neutrophils 50.4 % (42.0-75.0); Hemoglobin 8.6 g/dL (14.0-18.0); Mean Corpuscular HGB CONC 34.9 g/dL (32.0-36.0); Mean Corpuscular Hemoglobin 33.5 pg (27.0-31.0); Mean Platelet Volume 10.1 fL (7.4-10.4); Platelet Count 175 thou/uL (130-400); RBC Distribution Width 12.2 % (11.5-14.5); Red Blood Cell (RBC) Count 2.56 mill/uL (4.70-6.10); White Blood Cell (WBC) Count 6.9 thou/uL (4.8-10.8)
[2019-07-09] MEDS: Pantoprazole 80 MG in Sodium Chloride 0.9% 100 ML IVPB SCH ×2 (08:01→18:08)
[2019-07-09] MEDS: Baclofen 10 MG TAB PER TUBE SCH ×4 (08:29→19:57)
--- NOTE | 2019-07-09 09:16 | PRG ---
DATE OF SERVICE: 07/09/2019 SUBJECTIVE: This morning, awake, alert, and responsive, in no respiratory distress. OBJECTIVE: VITAL SIGNS: Temperature 97, pulse 90, saturations 90% on 2 L, respiratory rate 20. Blood pressure 116/76. CHEST: Decreased breath sounds. No wheezing. CARDIAC: Normal S1, S2. No gallops. ABDOMEN: No masses. LABORATORY DATA: White count 6000, H and H 8 and 24. ASSESSMENT ABD PLAN: Gastrointestinal bleed, underlying amyotrophic lateral sclerosis, quadriplegia with PEG feeding tube, diabetes. Pulmonary blankenship, he is stable enough to be discharged home as per GI and primary care physician. Pulmonary will follow at a distance. Please call as needed. Job ID: [id number]
--- NOTE | 2019-07-09 16:18 | PQF ---
OSMEL AVENDANO, JOVANNY SPEARS MD [id number] CLINICAL DOCUMENTATION IMPROVEMENT CLARIFICATION FORM: ICD-10 Updated PLEASE DO AN ADDENDUM TO THE PROGRESS NOTE WITH ANY DOCUMENTATION UPDATES OR ADDITIONS AND CARRY THROUGH TO DC SUMMARY. THANK YOU. DATE: 07/09/18 ATTN: Dr. Reyes, Please exercise your independent, professional judgment in responding to the clarification form. Clinical indicators are provided on the bottom of this form for your review Please check appropriate box(s): [ ] Gastric ulcer with hemorrhage due to PEG tube is a complication of current/ recent surgery [ x] Gastric ulcer with hemorrhage due to is not a complication of current/ recent surgery [ ] Other diagnosis [ ] Unable to determine In addition, please specify: Present on Admission (POA): [ x ] Yes [ ] No [ ] Unable to determine CLINICAL INDICATORS - SIGNS / SYMPTOMS / LABS / RESULTS AND LOCATION IN MR 07/06 Event note(Nicole): "BP in the 60s, HR 130s" 07/06 hgb 14.1--07/07 hgb 9.2 per lab Bleeding--> 07/08(Case): "Gastric ulcer at the incisura, with active hemorrhage in visible vessel." RISK FACTORS / RESULTS AND LOCATION IN MR Recent surgery--> "PEG 3 weeks ago" per 07/06(Case) TREATMENT / RESULTS AND LOCATION IN MR 07/06 GI consult orders IV Fluids--> 07/06 Albumin 25% 100 ms; Albumin 5% 500ml; 07/06 NS at 70-100 per orders Protonix 80mg drip at 10ml/hr 07/06 per orders "EGD with control of hemorrage" 07/06 Op note(Case) H/H q6h 07/06, 07/07 per orders (This form is maintained as a part of the permanent medical record) 2014 [employer]. All Rights Reserved Mary Anne Gray RN, BSN, CCDS [email or web address] [phone] [place]ES
--- NOTE | 2019-07-09 16:38 | PDOC.HOSPP ---
- Subjective Encounter Date: 07/09/19 Encounter Time: 09:00 Subjective: awake, listening to music, no abd pain or nausea tolerating tube feeds - Objective Vital Signs & Weight: Vital Signs (12 hours) Temp Pulse Resp BP Pulse Ox 07/09/19 15:55 98.2 F 103 H 20 119/79 93 L 07/09/19 11:05 97.9 F 91 20 131/73 91 L 07/09/19 08:00 99 07/09/19 07:25 97.9 F 90 20 116/76 99 Weight Admit Weight 189 lb 5 oz Weight 189 lb 5 oz Most Recent Monitor Data Heart Rate from ECG 106 NIBP 112/62 NIBP BP-Mean 78 Respiration from ECG 16 SpO2 97 I&O: 07/08/19 07/09/19 07/10/19 06:59 06:59 06:59 Intake Total 2831 970 Output Total 2545 4000 Balance 286 -6710 Result Diagrams: 07/09/19 07:27 07/09/19 05:18 Additional Labs: Accuchecks 07/09/19 07/09/19 07/08/19 11:05 05:24 19:27 POC Glucose 314 H 169 H 143 H Hospitalist ROS - Medication Medications: Active Medications Generic Name Dose Route Start Last Admin Trade Name Freq PRN Reason Stop Dose Admin Amitriptyline HCl 25 mg 07/06/19 21:00 07/08/19 21:29 Elavil PER TUBE 25 mg HS MARYANNE Administration Baclofen 20 mg 07/06/19 17:00 07/09/19 13:35 Lioresal PER TUBE 20 mg QID MARYANNE Administration Pantoprazole Sodium 80 mg/ 100 mls @ 10 mls/hr 07/06/19 15:00 07/09/19 08:01 Sodium Chloride IVPB 100 mls INF MARYANNE Administration Insulin Human Lispro 0 units 07/07/19 10:36 07/09/19 13:35 Humalog SC 8 unit .MODERATE SLIDING SC PRN Administration Moderate Correctional Scale - Exam General Appearance: awake alert Eye: PERRL, anicteric sclera ENT: no oropharyngeal lesions, moist mucosa Neck: supple, no JVD Heart: RRR, no murmur Respiratory: no wheezes, no rales Gastrointestinal: soft, non-tender, normal bowel sounds Gastrointestinal - other findings: peg+, spc+ Extremities: no cyanosis, 1+ LE edema Neurological - other findings: quadriplegia Psychiatric: A&O x 3 Hosp A/P (1) Acute blood loss anemia Code(s): D62 - ACUTE POSTHEMORRHAGIC ANEMIA Status: Acute (2) GI bleed Code(s): K92.2 - GASTROINTESTINAL HEMORRHAGE, UNSPECIFIED Status: Acute Qualifiers: GI bleed type/associated pathology: gastrointestinal hemorrhage with hematemesis Qualified Code(s): K92.0 - Hematemesis (3) Acute respiratory failure with hypoxia Code(s): J96.01 - ACUTE RESPIRATORY FAILURE WITH HYPOXIA Status: Resolved (4) Amyotrophic lateral sclerosis (ALS) Code(s): G12.21 - AMYOTROPHIC LATERAL SCLEROSIS Status: Chronic (5) DM type 2 (diabetes mellitus, type 2) Status: Chronic Qualifiers: Diabetes mellitus jail insulin use: with jail use (6) Quadriparesis Code(s): G82.50 - QUADRIPLEGIA, UNSPECIFIED Status: Chronic - Plan is on protonix bid got extubated 07/07 hemoglobin stable around 9g continue baclofen, elavil, ultram tolerating peg feeding, increase it to 50mls/hr hemostable dc plan in am to snf
[2019-07-09] MEDS: Amitriptyline HCl 25 MG TAB PER TUBE SCH (19:57)
[2019-07-09] MEDS: traMADol HCl 50 MG TAB PER TUBE PRN (20:11)
--- NOTE | 2019-07-09 21:22 | PRG ---
DATE OF SERVICE: 07/09/2019 SUBJECTIVE: Mr. Ronquillo has no further bleeding. He is tolerating tube feeds well now. Small irritation of the PEG tube site per his nurse. OBJECTIVE: VITAL SIGNS: Temperature is 98 and blood pressure 120s to 130s over 80s. ABDOMEN: Slightly protuberant, but nontender. There is no rebound or guarding. PEG tube site; slight erythema around the PEG tube site. This is not a new PEG. LABORATORY DATA: Hemoglobin is stable at 8.6. ASSESSMENT: Large gastric ulcer across the PEG. It is unclear if this is related to trauma. There is no history of NSAID use. He is on a Protonix drip presently and there has been no overt bleeding. His hemoglobin is stable. RECOMMENDATIONS: When this Protonix drip is out, I will talk to the nurse about stopping and start him on 40 mg p.o. b.i.d., to start in the morning. H pylori serology is pending. Job ID: [id number]
[2019-07-09 23:07] LABS: H. pylori IgA ABS Less than 9.0 units (0.0-8.9); H. pylori IgG ABS 0.42 (0.00-0.79); H. pylori IgM ABS Less than 9.0 units (0.0-8.9)
[2019-07-10] MEDS: HumaLOG 300 UNITS/3 ML VIAL SC PRN ×3 (00:04→13:07)
[2019-07-10] MEDS: traMADol HCl 50 MG TAB PER TUBE PRN (05:26)
[2019-07-10 07:07] LABS: #Eosinphils 0.2 thou/uL (0.0-0.7); #Monocytes 0.4 thou/uL (0.11-0.59); #Neutrophils 3.4 thou/uL (1.40-6.50); %Basophils 0.5 % (0.0-1.0); %Eosinophils 3.6 % (0.0-10.0); %Lymphocytes 33.6 % (21.0-51.0); %Monocytes 6.4 % (0.0-10.0); %Neutrophils 55.9 % (42.0-75.0); Hemoglobin 9.1 g/dL (14.0-18.0); Mean Corpuscular Hemoglobin 33.2 pg (27.0-31.0); Mean Platelet Volume 9.3 fL (7.4-10.4); Platelet Count 201 thou/uL (130-400); RBC Distribution Width 12.3 % (11.5-14.5); Red Blood Cell (RBC) Count 2.73 mill/uL (4.70-6.10)
[2019-07-10 07:34] LABS: Anion Gap 12 mmol/L (10-20); BUN (Urea Nitrogen) 7 mg/dL (8.4-25.7); Calc. Creatinine Clearance 181 mL/min (70-130); Calcium 8.5 mg/dL (7.8-10.44); Carbon Dioxide 24 mmol/L (22-29); Chloride 107 mmol/L (98-107); Estimated GFR-MDRD Greater than 90; Glucose 210 mg/dL (70-105); Potassium 3.5 mmol/L (3.5-5.1); Sodium 139 mmol/L (136-145)
[2019-07-10 07:40] LABS: Phosphorus 1.7 mg/dL (2.3-4.7)
[2019-07-10 08:14] VITALS: BP 103/70; TEMP 98.6
[2019-07-10] MEDS: Baclofen 10 MG TAB PER TUBE SCH ×2 (08:51→13:07)
[2019-07-10] MEDS ORDERED: Pantoprazole 40 MG GRANULES PACKET PER TUBE SCH (09:00)
--- NOTE | 2019-07-10 14:43 | PRG ---
DATE OF SERVICE: 07/10/2019 SUBJECTIVE: Mr. Ronquillo is tolerating tube feeds. He is getting discharged today. He has had no further bleeding. OBJECTIVE: VITAL SIGNS: Pulse is 100, temperature is 98, blood pressure is 103/70. ABDOMEN: Soft and nontender. LUNGS: Clear. LABORATORY DATA: White count 6, hemoglobin 9.1, and platelet count 201. BUN and creatinine are 7 and 0.56. Electrolytes are normal. H pylori serology is negative. ASSESSMENT: Gastric ulcer. This may be trauma related, related to his PEG that seemed to be rubbing and hit the back wall of the stomach advancing back and forth. I agree with plans for discharge when stable, no bleeding for 48 hours, and go on b.i.d. PPI. Should avoid all NSAIDs. The bumper in the PEG has been adjusted. Job ID: [id number]
--- NOTE | 2019-07-11 13:49 | DIS ---
DATE OF ADMISSION: 07/06/2019 DATE OF DISCHARGE: 07/10/2019 DISCHARGE DISPOSITION: [facility] in [place]. PRIMARY DISCHARGE DIAGNOSES: Acute blood loss anemia due to gastric ulcer; initial hemorrhagic shock, resolved; acute respiratory failure with hypoxia post esophagogastroduodenoscopy, resolved; history of amyotrophic lateral sclerosis with quadriplegia; and diabetes mellitus type 2. PROCEDURES DONE DURING HOSPITALIZATION: The patient had abdominal and pelvic CAT scan done on the day of admission, which showed no acute process. Had upper endoscopy done by Dr. Nnamdi Cabezas on the day of admission. The patient was found to have had a large ulceration directly across the internal bumper of the PEG tube. There is also a large adherent clot with active bleeding around the base of the clot. He has had epinephrine injected to the site with good blanching effect and had a gold probe to cauterize the ulcer base. Blood cultures x2, no growth. H and H of 9 and 25 on the day of discharge with platelet count of 201. Initial H and H were 17 and 49 on arrival. PT/INR and PTT within normal limits. BUN 7, creatinine 0.5. H pylori serologies were all negative. INPATIENT CONSULT: Dr. Nnamdi Cabezas/[facility] for Gastroenterology, Dr. Carlson for Pulmonology. DISCHARGE MEDICATIONS: 1. Protonix 40 mg twice daily for a total of 45 days. 2. Ferrous sulfate 300 mg p.o. daily. 3. Ultram p.r.n. 4. Zanaflex p.r.n. 5. Myrbetriq 25 mg daily. 6. Multivitamin 1 tablet once daily. 7. Lantus 30 units subcu at bedtime. 8. Finasteride 5 mg at bedtime. 9. Baclofen 20 mg 4 times daily. 10. Elavil 25 mg at bedtime. ALLERGIES: NO KNOWN DRUG ALLERGIES. DISCHARGE PLAN: The patient is being discharged to [facility]. The patient is to follow up with Dr. Misael Gaona, his primary care physician in 1 week. He also needs to follow up with Dr. Nnamdi Cabezas in 4 weeks. BRIEF COURSE DURING HOSPITALIZATION: The patient initially got admitted on the , after he was sent over from [facility] for bleeding through his PEG. The patient also was tachycardic in the 120s to 130s on arrival. His initial hemoglobin was 17 g. He has had serial H and H done. This drastically dropped down to 9 g and the patient has had emergent upper endoscopy done for profuse bleeding through his PEG tube. He was found to have had a large ulcer across the inner PEG tube opening. There was a large adherent clot as well. This area was cauterized with no further bleeding. Postprocedure, the patient was intubated and was in ICU. He has had successful extubation done on the . The patient's H and H have remained stable. He was on Protonix IV and has been transitioned to twice daily via PEG tube now. He needs to continue Protonix for a total of 45 days. H pylori serologies were all negative. He was closely monitored by Dr. Nnamdi Cabezas and Dr. Damon. He needs to follow up with Dr. Damon in 3 to 4 weeks. He has known history of ALS and has quadriplegia. A total of 35 minutes was spent on discharge plan. Please see a [id number] documentation for the day of discharge on [employer] Job ID: [id number]
== END 2019-07-10 15:15 | DRG 377 ==
LOC: ERS 10:44 → 2NO 16:33 → CCU 19:03 → T4-A 07-08 16:07
PROVIDERS: ADMIT Internal Medicine; ATTEND Internal Medicine
PROC: 0W3P8ZZ Control Bleeding in Gastrointestinal Tract, Via Natural or Artificial Opening Endoscopic (ICD-10-PCS; principal; 2019-07-06)
PROC: 3E0G8GC Introduction of Other Therapeutic Substance into Upper GI, Via Natural or Artificial Opening Endoscopic (ICD-10-PCS; 2019-07-06)
PROC: 0BH17EZ Insertion of Endotracheal Airway into Trachea, Via Natural or Artificial Opening (ICD-10-PCS; 2019-07-06)
PROC: 5A1935Z Respiratory Ventilation, Less than 24 Consecutive Hours (ICD-10-PCS; 2019-07-06)
DX: K25.4 Chronic or unspecified gastric ulcer with hemorrhage (principal); J96.01 Acute respiratory failure with hypoxia; G82.50 Quadriplegia, unspecified; R57.8 Other shock; D62 Acute posthemorrhagic anemia; G12.21 Amyotrophic lateral sclerosis; N40.0 Benign prostatic hyperplasia without lower urinary tract symptoms; E11.9 Type 2 diabetes mellitus without complications; E78.5 Hyperlipidemia, unspecified; Z74.01 Bed confinement status; Z79.899 Other long term (current) drug therapy; Z79.4 Long term (current) use of insulin; Z79.82 Long term (current) use of aspirin
CPT/HCPCS: 36415; 36416; 71045; 74177; 80048; 80053; 81001; 81003; 81015; 82271; 82805; 83605; 83735; 84100; 85014; 85018; 85025; 85027; 85610; 85730; 86850; 86900; 86901; 87040; 87077; 87086; 87186; 87804; 93005; 93010; 94002; 94003; 94150; 96361; 96365; 96375; C9113; J0696; J2001; J2370; J2405; J2704; J3010; J3480; J3490; J7050; P9045; P9047; Q9967

== ENCOUNTER 2020-11-28 22:20 | Emergency (ER) | payer MEDICARE, OTHER | END 2020-11-29 00:02 | disposition home or self-care (01) | LOC: ERS 22:20 | DX: Z46.59 Encounter for fitting and adjustment of other gastrointestinal appliance and device (principal); E11.9 Type 2 diabetes mellitus without complications; I10 Essential (primary) hypertension; E78.5 Hyperlipidemia, unspecified; K21.9 Gastro-esophageal reflux disease without esophagitis; Z79.82 Long term (current) use of aspirin; Z79.899 Other long term (current) drug therapy | CPT/HCPCS: 43762; 74018 ==

== ENCOUNTER 2021-02-19 13:08 | Inpatient (IN) | payer MEDICARE, MEDICAID ==
[~2021-02-19 13:08] MED LIST changes: -ISOVUE-370 76%-LOCM 1 ML ONE; +Iopamidol-370 76% 500 ML 1 ML ONE
[2021-02-19] MEDS ORDERED: Piperacillin/Tazobactam 4.5 GM in Sodium Chloride 0.9% 100 ML IVPB SCH (13:45)
[2021-02-19] MEDS ORDERED: VANCOMYCIN 2 GRAM/400 ML BAG 2 GM in Premix Bag 1 BAG IVPB SCH (13:45)
[2021-02-19 13:58] LABS: #Eosinphils 0.1 thou/uL (0.0-0.7); #Lymphocytes 2.4 thou/uL (1.20-3.40); #Monocytes 0.6 thou/uL (0.11-0.59); #Neutrophils 9.6 thou/uL (1.40-6.50); %Basophils 0.3 % (0.0-1.0); %Eosinophils 0.4 % (0.0-10.0); %Lymphocytes 18.6 % (21.0-51.0); %Monocytes 4.9 % (0.0-10.0); %Neutrophils 75.8 % (42.0-75.0); Hemoglobin 17.1 g/dL (14.0-18.0); Mean Corpuscular HGB CONC 33.2 g/dL (32.0-36.0); Mean Corpuscular Volume 96.4 fL (78.0-98.0); Mean Platelet Volume 9.3 fL (7.4-10.4); Platelet Count 240 thou/uL (130-400); RBC Distribution Width 12.2 % (11.5-14.5); Red Blood Cell (RBC) Count 5.35 mill/uL (4.70-6.10); White Blood Cell (WBC) Count 12.7 thou/uL (4.8-10.8)
[2021-02-19 14:11] LABS: Bacteria/HPF 3+ HPF (None Seen); Bilirubin Negative (Negative); Blood, Urine 2+ (Negative); Clarity Turbid (Clear); Glucose, Urine (Dipstick) Normal (Negative); Ketone, Urine 40 mg/dL (Negative); Leukocyte 500 Leu/uL (Negative); Nitrite Negative (Negative); Protein, Urine (Dipstick) 70 mg/dL (Neg-Trace); RBC/HPF Greater than 50 HPF (0-3); Specific Gravity, Urine 1.031 (1.002-1.036); Squamous Epithelial None Seen HPF (0-3); WBC/HPF Greater than 50 HPF (0-3)
[2021-02-19 14:20] LABS: ALT (SGPT) 33 U/L (8-55); AST (SGOT) 24 U/L (5-34); Alkaline Phosphatase 123 U/L (40-110); Anion Gap 17 mmol/L (10-20); BUN (Urea Nitrogen) 14 mg/dL (8.4-25.7); Bilirubin, Total 0.4 mg/dL (0.2-1.2); Calc. Creatinine Clearance 0 mL/min (70-130); Carbon Dioxide 19 mmol/L (22-29); Chloride 103 mmol/L (98-107); Globulin 3.7 g/dL (2.4-3.5); Glucose 168 mg/dL (70-105); Lipase 4 U/L (8-78); Potassium 4.2 mmol/L (3.5-5.1); Protein, Total 7.7 g/dL (6.0-8.3); Sodium 135 mmol/L (136-145)
[2021-02-19] MEDS ORDERED: Ondansetron PF 4 MG/2 ML Vial ONE (19:35)
[2021-02-19] MEDS ORDERED: Polyethylene Glycol 3350 17 GM Packet PO SCH (19:45)
[2021-02-19] MEDS ORDERED: Ondansetron PF 4 MG/2 ML Vial IVP PRN (20:45)
[2021-02-19] MEDS ORDERED: Ondansetron ODT 4 MG TAB SL PRN (20:45)
[2021-02-19] MEDS ORDERED: Acetaminophen 325 MG TAB PO PRN (20:45)
[2021-02-19 21:18] VITALS: BMI 26.7
[2021-02-19] MEDS ORDERED: HYDROcodone/Acetaminophen 5/325 mg Tablet PO PRN (22:38)
[2021-02-19] MEDS ORDERED: Bisacodyl 10 MG SUPP PR PRN (22:49)
[2021-02-19] MEDS ORDERED: GUAIFENESIN SF SOLN 200 MG/10 ML UDCUP PER TUBE PRN (22:49)
[2021-02-19] MEDS ORDERED: Milk Of Magnesia 30 ML UDCUP PER TUBE PRN (22:49)
[2021-02-19] MEDS ORDERED: Promethazine HCl 25 MG SUPP PR PRN (22:49)
[2021-02-19] MEDS ORDERED: HumaLOG 300 UNITS/3 ML VIAL SC PRN (22:56)
[2021-02-19] MEDS ORDERED: Dextrose 50% Abboject 50 ML SYRINGE SLOW IVP PRN (22:56)
[2021-02-19] MEDS ORDERED: Dextrose 5% in Water 1,000 ML IV PRN (22:56)
[2021-02-19] MEDS: Piperacillin/Tazobactam 3.375 GM in Sodium Chloride 0.9% 100 ML IVPB SCH (23:51)
[2021-02-20] MEDS: VANCOMYCIN 1.25 GM/250 ML BAG 1.25 GM in Premix Bag 1 BAG IVPB SCH ×2 (02:26→14:31)
[2021-02-20] MEDS ORDERED: Piperacillin/Tazobactam 4.5 GM in Sodium Chloride 0.9% 100 ML IVPB SCH (04:00)
[2021-02-20 05:55] LABS: #Eosinphils 0.2 thou/uL (0.0-0.7); #Lymphocytes 3.8 thou/uL (1.20-3.40); #Neutrophils 8.1 thou/uL (1.40-6.50); %Basophils 0.3 % (0.0-1.0); %Eosinophils 1.2 % (0.0-10.0); %Lymphocytes 28.7 % (21.0-51.0); %Monocytes 7.6 % (0.0-10.0); %Neutrophils 62.2 % (42.0-75.0); Hemoglobin 16.1 g/dL (14.0-18.0); Mean Corpuscular HGB CONC 33.3 g/dL (32.0-36.0); Mean Corpuscular Hemoglobin 32.3 pg (27.0-31.0); Mean Platelet Volume 9.3 fL (7.4-10.4); Platelet Count 214 thou/uL (130-400); RBC Distribution Width 12.1 % (11.5-14.5); Red Blood Cell (RBC) Count 4.97 mill/uL (4.70-6.10); White Blood Cell (WBC) Count 13.1 thou/uL (4.8-10.8)
[2021-02-20] MEDS: Piperacillin/Tazobactam 3.375 GM in Sodium Chloride 0.9% 100 ML IVPB SCH ×3 (06:11→23:35)
[2021-02-20] MEDS: Glycopyrrolate 1 MG TAB PER TUBE SCH ×3 (08:45→20:48)
[2021-02-20] MEDS: Atorvastatin Calcium 40 MG TAB PER TUBE SCH (08:45)
[2021-02-20] MEDS: Baclofen 10 MG TAB PER TUBE SCH ×4 (08:45→20:48)
[2021-02-20] MEDS: Tamsulosin HCl 0.4 MG CAP PO SCH (08:46)
[2021-02-20] MEDS: Loratadine 10 MG TAB PER TUBE SCH (08:46)
[2021-02-20] MEDS: Simethicone Chewable 80 MG TAB PER TUBE SCH ×3 (08:46→20:47)
[2021-02-20] MEDS: diphenhydrAMINE 25 MG CAP PER TUBE SCH ×3 (08:46→20:48)
[2021-02-20] MEDS: Azelastine 137 MCG/Spray 30 ML NS SCH ×2 (08:46→20:48)
[2021-02-20] MEDS: Saccharomyces boulardii 250 MG CAP PO SCH ×2 (08:46→20:48)
[2021-02-20] MEDS: Enoxaparin Sodium 40 MG/0.4 ML SYRINGE SC SCH (08:47)
[2021-02-20] MEDS: Polyethylene Glycol 3350 17 GM Packet PER TUBE PRN (08:50)
[2021-02-20] MEDS ORDERED: Cefepime 2 GM in Sodium Chloride 0.9% 100 ML IVPB SCH (09:00)
[2021-02-20] MEDS ORDERED: Ondansetron ODT 8 MG TAB PER TUBE PRN (10:45)
[2021-02-20] MEDS ORDERED: Miconazole 2% Vaginal Cream 45 GM TUBE TOP PRN (10:45)
[2021-02-20] MEDS ORDERED: Pseudoephedrine HCl 30 MG TAB PER TUBE PRN (10:45)
[2021-02-20] MEDS ORDERED: Oxymetazoline HCl 0.05% (30 ML BOT) NS PRN (10:45)
[2021-02-20] MEDS ORDERED: Magnesium Citrate 300 ML BOT PER TUBE SCH (11:15)
[2021-02-20] MEDS: Bisacodyl 10 MG SUPP PR SCH ×3 (11:53→22:10)
[2021-02-20] MEDS ORDERED: Fleet Enema 133 ML BOT PR SCH (12:30)
[2021-02-20] MEDS: Polyvinyl Alcohol 1.4%/Povidone 0.6% Opth Drops EA EYE SCH ×2 (12:50→20:30)
[2021-02-20] MEDS ORDERED: Metoclopramide HCl 10 MG/2 ML VIAL IVP PRN (14:47)
[2021-02-20] MEDS: Sodium Chloride 0.9% 1,000 ML IV SCH (16:30)
[2021-02-20] MEDS ORDERED: metFORMIN 500 MG TAB PER TUBE SCH (17:00)
[2021-02-20] MEDS: Mupirocin 2% Ointment 22 GM Tube TOP SCH (20:46)
[2021-02-20] MEDS: Nystatin Powder 15 GM BOT TOP SCH (20:47)
[2021-02-20] MEDS: Finasteride 5 MG TAB PO SCH (20:48)
[2021-02-20] MEDS: Senokot S 8.6-50 MG TAB PER TUBE SCH (20:48)
[2021-02-20] MEDS: Fish Oil 1,000 MG CAP PO SCH (20:48)
[2021-02-20] MEDS: tiZANidine HCl 4 MG TAB PO PRN (20:48)
[2021-02-20] MEDS ORDERED: Bisacodyl 5 MG TAB FS SCH (21:00)
[2021-02-20] MEDS ORDERED: Amitriptyline HCl 25 MG TAB PER TUBE SCH (21:00)
[2021-02-21] MEDS: VANCOMYCIN 1.25 GM/250 ML BAG 1.25 GM in Premix Bag 1 BAG IVPB SCH ×2 (01:28→13:04)
[2021-02-21] MEDS: Sodium Chloride 0.9% 1,000 ML IV SCH ×2 (04:24→17:49)
[2021-02-21 05:52] LABS: ALT (SGPT) 32 U/L (8-55); AST (SGOT) 24 U/L (5-34); Albumin 3.7 g/dL (3.5-5.0); Alkaline Phosphatase 105 U/L (40-110); Anion Gap 18 mmol/L (10-20); BUN (Urea Nitrogen) 9 mg/dL (8.4-25.7); Bilirubin, Total 0.4 mg/dL (0.2-1.2); Calc. Creatinine Clearance 199 mL/min (70-130); Calcium 8.4 mg/dL (7.8-10.44); Carbon Dioxide 16 mmol/L (22-29); Chloride 108 mmol/L (98-107); Globulin 3.3 g/dL (2.4-3.5); Glucose 111 mg/dL (70-105); Magnesium 2.3 mg/dL (1.6-2.6); Phosphorus 2.3 mg/dL (2.3-4.7); Potassium 3.6 mmol/L (3.5-5.1); Sodium 138 mmol/L (136-145)
[2021-02-21] MEDS: Piperacillin/Tazobactam 3.375 GM in Sodium Chloride 0.9% 100 ML IVPB SCH ×2 (06:30→16:20)
[2021-02-21 06:36] LABS: #Eosinphils 0.2 thou/uL (0.0-0.7); #Monocytes 0.7 thou/uL (0.11-0.59); #Neutrophils 6.2 thou/uL (1.40-6.50); %Basophils 0.4 % (0.0-1.0); %Eosinophils 1.6 % (0.0-10.0); %Lymphocytes 29.8 % (21.0-51.0); %Monocytes 6.8 % (0.0-10.0); %Neutrophils 61.5 % (42.0-75.0); Hemoglobin 15.2 g/dL (14.0-18.0); Mean Corpuscular HGB CONC 34.2 g/dL (32.0-36.0); Mean Corpuscular Hemoglobin 33.3 pg (27.0-31.0); Mean Corpuscular Volume 97.4 fL (78.0-98.0); Mean Platelet Volume 9.3 fL (7.4-10.4); Platelet Count 184 thou/uL (130-400); RBC Distribution Width 12.1 % (11.5-14.5); Red Blood Cell (RBC) Count 4.58 mill/uL (4.70-6.10)
[2021-02-21] MEDS: diphenhydrAMINE 25 MG CAP PER TUBE SCH ×3 (08:21→21:50)
[2021-02-21] MEDS: Cholecalciferol 1,000 UNITS (25 MCG) TAB PER TUBE SCH (08:21)
[2021-02-21] MEDS: Simethicone Chewable 80 MG TAB PER TUBE SCH ×3 (08:21→21:49)
[2021-02-21] MEDS: Glycopyrrolate 1 MG TAB PER TUBE SCH ×3 (08:21→21:49)
[2021-02-21] MEDS: Loratadine 10 MG TAB PER TUBE SCH (08:21)
[2021-02-21] MEDS: Senokot S 8.6-50 MG TAB PER TUBE SCH ×2 (08:21→21:49)
[2021-02-21] MEDS: Saccharomyces boulardii 250 MG CAP PO SCH ×2 (08:21→21:49)
[2021-02-21] MEDS: Baclofen 10 MG TAB PER TUBE SCH ×4 (08:21→21:49)
[2021-02-21] MEDS: Multivit, Therapeutic 1 TAB PER TUBE SCH (08:21)
[2021-02-21] MEDS: Atorvastatin Calcium 40 MG TAB PER TUBE SCH (08:21)
[2021-02-21] MEDS: Fish Oil 1,000 MG CAP PO SCH ×2 (08:21→21:49)
[2021-02-21] MEDS: Azelastine 137 MCG/Spray 30 ML NS SCH ×2 (08:22→21:52)
[2021-02-21] MEDS: Mupirocin 2% Ointment 22 GM Tube TOP SCH ×2 (08:22→21:53)
[2021-02-21] MEDS: Enoxaparin Sodium 40 MG/0.4 ML SYRINGE SC SCH (08:22)
[2021-02-21] MEDS: Tamsulosin HCl 0.4 MG CAP PO SCH (08:22)
[2021-02-21] MEDS: Nystatin Powder 15 GM BOT TOP SCH ×2 (08:23→21:51)
[2021-02-21] MEDS: Polyethylene Glycol 3350 17 GM Packet PER TUBE PRN (08:32)
[2021-02-21] MEDS: Polyvinyl Alcohol 1.4%/Povidone 0.6% Opth Drops EA EYE SCH ×2 (11:35→22:54)
[2021-02-21] MEDS: Metoclopramide HCl 10 MG/2 ML VIAL IVP SCH ×3 (11:36→23:45)
[2021-02-21] MEDS: Bisacodyl 10 MG SUPP PR SCH ×2 (11:36→17:49)
[2021-02-21] MEDS ORDERED: diphenhydrAMINE 12.5 MG/5 ML UDCUP PER TUBE SCH (21:45)
[2021-02-21] MEDS: Finasteride 5 MG TAB PO SCH (21:50)
[2021-02-21] MEDS: tiZANidine HCl 4 MG TAB PO PRN (23:56)
[2021-02-22] MEDS: Piperacillin/Tazobactam 3.375 GM in Sodium Chloride 0.9% 100 ML IVPB SCH ×4 (00:04→23:16)
[2021-02-22] MEDS: VANCOMYCIN 1.25 GM/250 ML BAG 1.25 GM in Premix Bag 1 BAG IVPB SCH (01:26)
[2021-02-22] MEDS: Sodium Chloride 0.9% 1,000 ML IV SCH ×2 (01:29→06:45)
[2021-02-22] MEDS: Bisacodyl 10 MG SUPP PR SCH ×3 (04:00→20:01)
[2021-02-22] MEDS: Metoclopramide HCl 10 MG/2 ML VIAL IVP SCH ×4 (06:06→23:18)
[2021-02-22 06:39] LABS: #Eosinphils 0.3 thou/uL (0.0-0.7); #Lymphocytes 2.7 thou/uL (1.20-3.40); #Monocytes 0.8 thou/uL (0.11-0.59); #Neutrophils 5.4 thou/uL (1.40-6.50); %Basophils 0.4 % (0.0-1.0); %Eosinophils 3.4 % (0.0-10.0); %Lymphocytes 29.2 % (21.0-51.0); %Monocytes 8.8 % (0.0-10.0); %Neutrophils 58.2 % (42.0-75.0); Hemoglobin 14.4 g/dL (14.0-18.0); Mean Corpuscular HGB CONC 32.9 g/dL (32.0-36.0); Mean Corpuscular Hemoglobin 32.4 pg (27.0-31.0); Mean Corpuscular Volume 98.4 fL (78.0-98.0); Mean Platelet Volume 9.4 fL (7.4-10.4); Platelet Count 162 thou/uL (130-400); RBC Distribution Width 12.1 % (11.5-14.5); Red Blood Cell (RBC) Count 4.45 mill/uL (4.70-6.10); White Blood Cell (WBC) Count 9.3 thou/uL (4.8-10.8)
[2021-02-22 07:02] LABS: Anion Gap 18 mmol/L (10-20); BUN (Urea Nitrogen) 8 mg/dL (8.4-25.7); Calc. Creatinine Clearance 168 mL/min (70-130); Calcium 8.5 mg/dL (7.8-10.44); Carbon Dioxide 17 mmol/L (22-29); Chloride 107 mmol/L (98-107); Glucose 164 mg/dL (70-105); Sodium 138 mmol/L (136-145)
[2021-02-22] MEDS: Polyethylene Glycol 3350 17 GM Packet PER TUBE PRN (07:04)
[2021-02-22] MEDS: Simethicone Chewable 80 MG TAB PER TUBE SCH ×3 (09:14→21:00)
[2021-02-22] MEDS: Tamsulosin HCl 0.4 MG CAP PO SCH (09:16)
[2021-02-22] MEDS: Saccharomyces boulardii 250 MG CAP PO SCH ×2 (09:17→21:01)
[2021-02-22] MEDS: Multivit, Therapeutic 1 TAB PER TUBE SCH (09:17)
[2021-02-22] MEDS: Azelastine 137 MCG/Spray 30 ML NS SCH ×2 (09:17→21:01)
[2021-02-22] MEDS: Atorvastatin Calcium 40 MG TAB PER TUBE SCH (09:18)
[2021-02-22] MEDS: Baclofen 10 MG TAB PER TUBE SCH ×4 (09:24→21:01)
[2021-02-22] MEDS: diphenhydrAMINE 12.5 MG/5 ML UDCUP PER TUBE SCH ×3 (09:24→21:00)
[2021-02-22] MEDS: Cholecalciferol 1,000 UNITS (25 MCG) TAB PER TUBE SCH (09:24)
[2021-02-22] MEDS: Loratadine 10 MG TAB PER TUBE SCH (09:25)
[2021-02-22] MEDS: Fish Oil 1,000 MG CAP PO SCH ×2 (09:25→21:01)
[2021-02-22] MEDS: Glycopyrrolate 1 MG TAB PER TUBE SCH ×3 (09:25→21:02)
[2021-02-22] MEDS: Enoxaparin Sodium 40 MG/0.4 ML SYRINGE SC SCH (09:25)
[2021-02-22] MEDS: Nystatin Powder 15 GM BOT TOP SCH ×2 (09:26→21:31)
[2021-02-22] MEDS: Senokot S 8.6-50 MG TAB PER TUBE SCH ×2 (09:26→21:00)
[2021-02-22] MEDS: Mupirocin 2% Ointment 22 GM Tube TOP SCH ×2 (09:26→21:02)
[2021-02-22] MEDS ORDERED: Fleet Enema 133 ML BOT PR PRN (12:15)
[2021-02-22] MEDS: Nitrofurantoin Macrocrystal 50 MG CAP PER TUBE SCH (12:55)
[2021-02-22] MEDS: Polyvinyl Alcohol 1.4%/Povidone 0.6% Opth Drops EA EYE SCH ×2 (13:25→21:30)
[2021-02-22] MEDS: Finasteride 5 MG TAB PO SCH (21:01)
[2021-02-22] MEDS: tiZANidine HCl 4 MG TAB PO PRN (23:18)
[2021-02-23] MEDS: Bisacodyl 10 MG SUPP PR SCH ×3 (03:43→19:41)
[2021-02-23] MEDS: Metoclopramide HCl 10 MG/2 ML VIAL IVP SCH ×4 (05:35→23:46)
[2021-02-23] MEDS: Piperacillin/Tazobactam 3.375 GM in Sodium Chloride 0.9% 100 ML IVPB SCH ×3 (05:54→23:06)
[2021-02-23] MEDS: Nystatin Powder 15 GM BOT TOP SCH ×2 (08:40→23:05)
[2021-02-23] MEDS: Saccharomyces boulardii 250 MG CAP PO SCH ×2 (11:05→21:27)
[2021-02-23] MEDS: Simethicone Chewable 80 MG TAB PER TUBE SCH ×3 (11:05→21:30)
[2021-02-23] MEDS: Fish Oil 1,000 MG CAP PO SCH ×2 (11:06→21:27)
[2021-02-23] MEDS: Cholecalciferol 1,000 UNITS (25 MCG) TAB PER TUBE SCH (11:06)
[2021-02-23] MEDS: Baclofen 10 MG TAB PER TUBE SCH ×4 (11:06→21:27)
[2021-02-23] MEDS: Senokot S 8.6-50 MG TAB PER TUBE SCH ×2 (11:06→21:27)
[2021-02-23] MEDS: Tamsulosin HCl 0.4 MG CAP PO SCH (11:07)
[2021-02-23] MEDS: Multivit, Therapeutic 1 TAB PER TUBE SCH (11:07)
[2021-02-23] MEDS: Atorvastatin Calcium 40 MG TAB PER TUBE SCH (11:07)
[2021-02-23] MEDS: diphenhydrAMINE 12.5 MG/5 ML UDCUP PER TUBE SCH ×3 (11:07→21:27)
[2021-02-23] MEDS: Glycopyrrolate 1 MG TAB PER TUBE SCH ×3 (11:08→21:28)
[2021-02-23] MEDS: Enoxaparin Sodium 40 MG/0.4 ML SYRINGE SC SCH (11:08)
[2021-02-23] MEDS: Loratadine 10 MG TAB PER TUBE SCH (11:09)
[2021-02-23] MEDS: Mupirocin 2% Ointment 22 GM Tube TOP SCH ×2 (11:12→21:32)
[2021-02-23] MEDS: Azelastine 137 MCG/Spray 30 ML NS SCH ×2 (11:13→21:32)
[2021-02-23] MEDS: Polyvinyl Alcohol 1.4%/Povidone 0.6% Opth Drops EA EYE SCH ×2 (13:06→21:28)
[2021-02-23] MEDS: Lantus 1000 UNITS/10 ML VIAL SC SCH (15:14)
[2021-02-23] MEDS ORDERED: Lantus 1000 UNITS/10 ML VIAL SC SCH (16:15)
[2021-02-23] MEDS: Finasteride 5 MG TAB PO SCH (21:27)
[2021-02-23] MEDS: tiZANidine HCl 4 MG TAB PO PRN (21:35)
[2021-02-24] MEDS: Bisacodyl 10 MG SUPP PR SCH ×3 (03:27→12:30)
[2021-02-24] MEDS: Piperacillin/Tazobactam 3.375 GM in Sodium Chloride 0.9% 100 ML IVPB SCH ×2 (06:05→14:57)
[2021-02-24] MEDS: Metoclopramide HCl 10 MG/2 ML VIAL IVP SCH ×3 (06:05→19:48)
[2021-02-24] MEDS: Senokot S 8.6-50 MG TAB PER TUBE SCH ×2 (10:27→21:33)
[2021-02-24] MEDS: Simethicone Chewable 80 MG TAB PER TUBE SCH ×3 (10:27→21:33)
[2021-02-24] MEDS: Baclofen 10 MG TAB PER TUBE SCH ×4 (10:27→21:33)
[2021-02-24] MEDS: Saccharomyces boulardii 250 MG CAP PO SCH ×2 (10:28→21:33)
[2021-02-24] MEDS: Atorvastatin Calcium 40 MG TAB PER TUBE SCH (10:28)
[2021-02-24] MEDS: Cholecalciferol 1,000 UNITS (25 MCG) TAB PER TUBE SCH (10:42)
[2021-02-24] MEDS: Fish Oil 1,000 MG CAP PO SCH ×2 (10:42→21:32)
[2021-02-24] MEDS: Loratadine 10 MG TAB PER TUBE SCH (10:42)
[2021-02-24] MEDS: Tamsulosin HCl 0.4 MG CAP PO SCH (10:42)
[2021-02-24] MEDS: Multivit, Therapeutic 1 TAB PER TUBE SCH (10:42)
[2021-02-24] MEDS: Nystatin Powder 15 GM BOT TOP SCH ×2 (10:43→21:35)
[2021-02-24] MEDS: Azelastine 137 MCG/Spray 30 ML NS SCH ×2 (10:43→21:34)
[2021-02-24] MEDS: Enoxaparin Sodium 40 MG/0.4 ML SYRINGE SC SCH (10:43)
[2021-02-24] MEDS: diphenhydrAMINE 12.5 MG/5 ML UDCUP PER TUBE SCH ×3 (10:43→21:32)
[2021-02-24] MEDS: Glycopyrrolate 1 MG TAB PER TUBE SCH ×3 (10:44→21:32)
[2021-02-24] MEDS: Lantus 1000 UNITS/10 ML VIAL SC SCH (10:44)
[2021-02-24] MEDS: Nitrofurantoin Macrocrystal 50 MG CAP PER TUBE SCH (10:45)
[2021-02-24] MEDS: Polyvinyl Alcohol 1.4%/Povidone 0.6% Opth Drops EA EYE SCH ×2 (10:45→21:34)
[2021-02-24] MEDS: Mupirocin 2% Ointment 22 GM Tube TOP SCH ×2 (10:46→21:34)
[2021-02-24] MEDS: Finasteride 5 MG TAB PO SCH (21:33)
[2021-02-24] MEDS: tiZANidine HCl 4 MG TAB PO PRN (21:37)
[2021-02-25] MEDS: Piperacillin/Tazobactam 3.375 GM in Sodium Chloride 0.9% 100 ML IVPB SCH ×2 (00:19→06:07)
[2021-02-25] MEDS: Metoclopramide HCl 10 MG/2 ML VIAL IVP SCH ×4 (00:20→17:15)
[2021-02-25] MEDS: HumaLOG 300 UNITS/3 ML VIAL SC PRN ×2 (06:10→11:41)
[2021-02-25] MEDS: Simethicone Chewable 80 MG TAB PER TUBE SCH ×3 (08:21→21:03)
[2021-02-25] MEDS: Glycopyrrolate 1 MG TAB PER TUBE SCH ×3 (08:21→21:03)
[2021-02-25] MEDS: Cholecalciferol 1,000 UNITS (25 MCG) TAB PER TUBE SCH (08:22)
[2021-02-25] MEDS: Loratadine 10 MG TAB PER TUBE SCH (08:22)
[2021-02-25] MEDS: Baclofen 10 MG TAB PER TUBE SCH ×4 (08:22→21:03)
[2021-02-25] MEDS: Multivit, Therapeutic 1 TAB PER TUBE SCH (08:22)
[2021-02-25] MEDS: Saccharomyces boulardii 250 MG CAP PO SCH ×2 (08:22→21:03)
[2021-02-25] MEDS: Senokot S 8.6-50 MG TAB PER TUBE SCH ×2 (08:22→21:03)
[2021-02-25] MEDS: Atorvastatin Calcium 40 MG TAB PER TUBE SCH (08:22)
[2021-02-25] MEDS: Azelastine 137 MCG/Spray 30 ML NS SCH ×2 (08:23→21:04)
[2021-02-25] MEDS: Enoxaparin Sodium 40 MG/0.4 ML SYRINGE SC SCH (08:23)
[2021-02-25] MEDS: Tamsulosin HCl 0.4 MG CAP PO SCH (08:23)
[2021-02-25] MEDS: Fish Oil 1,000 MG CAP PO SCH ×2 (08:23→21:02)
[2021-02-25] MEDS: diphenhydrAMINE 12.5 MG/5 ML UDCUP PER TUBE SCH ×3 (08:23→21:04)
[2021-02-25] MEDS: Bisacodyl 10 MG SUPP PR SCH (08:23)
[2021-02-25] MEDS: Mupirocin 2% Ointment 22 GM Tube TOP SCH ×2 (08:24→21:04)
[2021-02-25] MEDS: Lantus 1000 UNITS/10 ML VIAL SC SCH (08:24)
[2021-02-25] MEDS: Nystatin Powder 15 GM BOT TOP SCH ×2 (08:25→21:04)
[2021-02-25] MEDS: Polyvinyl Alcohol 1.4%/Povidone 0.6% Opth Drops EA EYE SCH ×2 (08:25→21:43)
[2021-02-25] MEDS: tiZANidine HCl 4 MG TAB PO PRN ×2 (08:27→21:03)
[2021-02-25] MEDS ORDERED: Cefdinir 300 MG CAP PER TUBE SCH (10:00)
[2021-02-25] MEDS: Finasteride 5 MG TAB PO SCH (21:03)
[2021-02-26] MEDS: Metoclopramide HCl 10 MG/2 ML VIAL IVP SCH ×3 (00:29→12:24)
[2021-02-26] MEDS: HumaLOG 300 UNITS/3 ML VIAL SC PRN ×2 (06:06→12:24)
[2021-02-26] MEDS: Atorvastatin Calcium 40 MG TAB PER TUBE SCH (08:57)
[2021-02-26] MEDS: Azelastine 137 MCG/Spray 30 ML NS SCH (08:58)
[2021-02-26] MEDS: Baclofen 10 MG TAB PER TUBE SCH ×2 (08:58→12:24)
[2021-02-26] MEDS: Bisacodyl 10 MG SUPP PR SCH (08:58)
[2021-02-26] MEDS: diphenhydrAMINE 12.5 MG/5 ML UDCUP PER TUBE SCH ×2 (08:59→15:06)
[2021-02-26] MEDS: Cholecalciferol 1,000 UNITS (25 MCG) TAB PER TUBE SCH (08:59)
[2021-02-26] MEDS: Enoxaparin Sodium 40 MG/0.4 ML SYRINGE SC SCH (08:59)
[2021-02-26] MEDS: Glycopyrrolate 1 MG TAB PER TUBE SCH ×2 (09:00→15:06)
[2021-02-26] MEDS: Fish Oil 1,000 MG CAP PO SCH (09:00)
[2021-02-26] MEDS ORDERED: Cefdinir 300 MG CAP PER TUBE SCH (09:00)
[2021-02-26] MEDS: Lantus 1000 UNITS/10 ML VIAL SC SCH (09:00)
[2021-02-26] MEDS: Nitrofurantoin Macrocrystal 50 MG CAP PER TUBE SCH (09:02)
[2021-02-26] MEDS: Loratadine 10 MG TAB PER TUBE SCH (09:02)
[2021-02-26] MEDS: Multivit, Therapeutic 1 TAB PER TUBE SCH (09:02)
[2021-02-26] MEDS: Mupirocin 2% Ointment 22 GM Tube TOP SCH (09:02)
[2021-02-26] MEDS: Senokot S 8.6-50 MG TAB PER TUBE SCH (09:03)
[2021-02-26] MEDS: Simethicone Chewable 80 MG TAB PER TUBE SCH ×2 (09:03→15:06)
[2021-02-26] MEDS: Saccharomyces boulardii 250 MG CAP PO SCH (09:03)
[2021-02-26] MEDS: Nystatin Powder 15 GM BOT TOP SCH (09:03)
[2021-02-26] MEDS: Tamsulosin HCl 0.4 MG CAP PO SCH (09:04)
[2021-02-26] MEDS: Polyvinyl Alcohol 1.4%/Povidone 0.6% Opth Drops EA EYE SCH (10:25)
[2021-02-26] MEDS: tiZANidine HCl 4 MG TAB PO PRN (10:38)
[2021-02-26 15:26] VITALS: BP 126/86; TEMP 97.7
== END 2021-02-26 16:02 | DRG 698 ==
LOC: ERS 13:08 → T4-B 17:38
PROVIDERS: ADMIT Internal Medicine; ATTEND Family Medicine
DX: T83.518A Infection and inflammatory reaction due to other urinary catheter, initial encounter (principal); A41.51 Sepsis due to Escherichia coli [E. coli]; A41.52 Sepsis due to Pseudomonas; G82.50 Quadriplegia, unspecified; N39.0 Urinary tract infection, site not specified; G12.21 Amyotrophic lateral sclerosis; E87.1 Hypo-osmolality and hyponatremia; K56.7 Ileus, unspecified; Z20.822 Contact with and (suspected) exposure to COVID-19; K59.00 Constipation, unspecified; E11.9 Type 2 diabetes mellitus without complications; E78.5 Hyperlipidemia, unspecified; K59.81 Ogilvie syndrome; R13.12 Dysphagia, oropharyngeal phase; I10 Essential (primary) hypertension; N40.1 Benign prostatic hyperplasia with lower urinary tract symptoms; R33.8 Other retention of urine; Y84.6 Urinary catheterization as the cause of abnormal reaction of the patient, or of later complication, without mention of misadventure at the time of the procedure; K59.01 Slow transit constipation; Z93.1 Gastrostomy status; Z79.899 Other long term (current) drug therapy; Z79.4 Long term (current) use of insulin
CPT/HCPCS: 36415; 36416; 71045; 74177; 80048; 80053; 81003; 81015; 83605; 83690; 83735; 84100; 85007; 85025; 85027; 87040; 87077; 87086; 87186; 87324; 87449; 93005; 96365; 96366; 96367; 96375; C9803; J1650; J1815; J2405; J2543; J2765; J3370; J3490; Q0163; Q9967; U0003; U0005

== ENCOUNTER 2021-09-12 20:22 | Inpatient (IN) | payer MEDICARE, MEDICAID ==
[2021-09-12 22:43] LABS: Hemoglobin 11.4 g/dL (14.0-18.0); Mean Corpuscular HGB CONC 32.7 g/dL (32.0-36.0); Platelet Count 196 thou/uL (130-400); RBC Distribution Width 12.4 % (11.5-14.5); Red Blood Cell (RBC) Count 3.56 mill/uL (4.70-6.10); White Blood Cell (WBC) Count 26.6 thou/uL (4.8-10.8)
[2021-09-12 23:08] LABS: Band 20 % (5-11); Lymphocytes 6 % (21-51); MDiff Complete? YES; Monocytes 2 % (0-10); Neutrophil 72 % (42-75)
[2021-09-13] MEDS ORDERED: Fentanyl 100 MCG/2 ML VIAL ONE ×2 (00:36→00:45)
[2021-09-13] MEDS ORDERED: SUGAMMADEX SODIUM 200 MG/2 ML VIAL ONE (01:14)
[2021-09-13] MEDS ORDERED: Ondansetron PF 4 MG/2 ML Vial IVP PRN (01:23)
[2021-09-13] MEDS ORDERED: Acetaminophen 325 MG TAB PO PRN (01:23)
[2021-09-13] MEDS ORDERED: Ondansetron ODT 4 MG TAB PO PRN (01:23)
[2021-09-13] MEDS ORDERED: Acetaminophen 650 MG Suppository PR PRN (01:23)
[2021-09-13] MEDS ORDERED: Iothalamate Meglumine 60% 50 ML VIAL FS ONE (01:33)
[2021-09-13] MEDS ORDERED: Ondansetron PF 4 MG/2 ML Vial ONE (01:37)
[2021-09-13] MEDS ORDERED: PHENYLEPHRINE-NS 100 MCG/ML 10 ML SYRINGE ONE (01:37)
[2021-09-13] MEDS ORDERED: Lidocaine 1% PF 5 ML VIAL ONE (01:37)
[2021-09-13] MEDS ORDERED: PROPOFOL 200 MG/20 ML VIAL ONE (01:37)
[2021-09-13] MEDS ORDERED: Rocuronium Bromide 10 MG/ML (10ML VIAL) ONE (01:37)
[2021-09-13] MEDS ORDERED: Dexamethasone 20 MG/5 ML VIAL ONE (01:37)
[2021-09-13] MEDS ORDERED: Dextrose 50% Abboject 50 ML SYRINGE SLOW IVP PRN (02:06)
[2021-09-13] MEDS ORDERED: HumaLOG 300 UNITS/3 ML VIAL SC PRN (02:06)
[2021-09-13] MEDS ORDERED: Dextrose 5% in Water 1,000 ML IV PRN (02:06)
[2021-09-13] MEDS ORDERED: Midazolam HCl 2 mg/2 ml Vial ONE (02:29)
[2021-09-13] MEDS ORDERED: Promethazine HCl 25 MG/ML VIAL IVPB PRN (02:38)
[2021-09-13] MEDS ORDERED: Ondansetron HCl/PF 4 MG/2 ML Vial IVP PRN (02:38)
[2021-09-13] MEDS ORDERED: Promethazine HCl 25 MG/ML VIAL IM PRN (02:38)
[2021-09-13] MEDS ORDERED: DISCONTINUE PREVIOUS NARCOTIC PAIN MEDICATIONS AND BENZODIAZEPINES FS SCH (02:45)
[2021-09-13] MEDS ORDERED: Propofol 1,000 MG/100 ML VIAL IV PRN (02:45)
[2021-09-13] MEDS ORDERED: fentaNYL Citrate-0.9 % NaCl/PF 100 ML IV SCH (02:45)
[2021-09-13] MEDS ORDERED: Fentanyl BOLUS 250 ML IVPB PRN (02:45)
[2021-09-13] MEDS ORDERED: Morphine 2 MG/ML VIAL SLOW IVP PRN (02:45)
[2021-09-13] MEDS ORDERED: Propofol BOLUS 1,000 MG/100 ML VIAL IV PRN (02:45)
[2021-09-13] MEDS ORDERED: PHARMACY TO DOSE VANCOMYCIN IVPB PRN (03:12)
[2021-09-13] MEDS ORDERED: Cefepime 2 GM in Sodium Chloride 0.9% 100 ML IVPB SCH ×2 (03:15→15:00)
[2021-09-13] MEDS ORDERED: Propofol 1,000 MG/100 ML VIAL IV ONE (03:37)
[2021-09-13] MEDS ORDERED: VANCOMYCIN 2 GRAM/400 ML BAG 2 GM in Premix Bag 1 BAG IVPB SCH (04:00)
[2021-09-13 07:43] LABS: Base Excess (BEa) -8.8 mEq/L (-2.0 to +3.0); CO2 Tension 36.6 mmHg (35.0-45.0); Calcium, Ionized (arterial) 1.08 mmol/L (1.12-1.30); Carboxyhemoglobin (COHb) 0.4 gm% (0.0-3.0); Hemoglobin (Hb) 13.1 g/dL (14.0-18.0); O2 Tension (PaO2), arterial 82.4 mmHg (80.0-100.0); Potassium - ABG Lab 3.83 mmol/L (3.70-5.30); pH, Arterial 7.29 (7.35-7.45)
[2021-09-13 07:45] LABS: Puncture Site RRA
[2021-09-13] MEDS: Pantoprazole 40 MG VIAL IVP SCH ×3 (07:52→20:20)
[2021-09-13] MEDS ORDERED: Sodium Bicarb 50 MEQ/50 ML Abboject 8.4% SYRINGE ONE (08:21)
[2021-09-13] MEDS: Sodium Chloride 0.9% 1,000 ML IV SCH ×4 (08:37→23:42)
[2021-09-13] MEDS ORDERED: Sodium Bicarb 50 MEQ/50 ML Abboject 8.4% SYRINGE IVP SCH (09:00)
[2021-09-13] MEDS ORDERED: Enoxaparin Sodium 40 MG/0.4 ML SYRINGE SC SCH (09:00)
[2021-09-13 09:20] LABS: #Lymphocytes 1.5 thou/uL (1.20-3.40); #Monocytes 0.7 thou/uL (0.11-0.59); #Neutrophils 18.9 thou/uL (1.40-6.50); %Basophils 0.1 % (0.0-1.0); %Eosinophils 0.2 % (0.0-10.0); %Lymphocytes 7.1 % (21.0-51.0); %Monocytes 3.5 % (0.0-10.0); %Neutrophils 89.1 % (42.0-75.0); Hemoglobin 8.9 g/dL (14.0-18.0); Mean Corpuscular HGB CONC 31.4 g/dL (32.0-36.0); Mean Corpuscular Hemoglobin 31.4 pg (27.0-31.0); Mean Corpuscular Volume 99.8 fL (78.0-98.0); Mean Platelet Volume 9.9 fL (7.4-10.4); Platelet Count 193 thou/uL (130-400); RBC Distribution Width 12.3 % (11.5-14.5); Red Blood Cell (RBC) Count 2.83 mill/uL (4.70-6.10); White Blood Cell (WBC) Count 21.2 thou/uL (4.8-10.8)
[2021-09-13] MEDS ORDERED: Sodium Chloride 0.9% 1,000 ML IV SCH (09:32)
[2021-09-13 09:37] LABS: Anion Gap 18 mmol/L (10-20); BUN (Urea Nitrogen) 29 mg/dL (8.4-25.7); Calc. Creatinine Clearance 149 mL/min (70-130); Calcium 7.8 mg/dL (7.8-10.44); Carbon Dioxide 20 mmol/L (22-29); Chloride 107 mmol/L (98-107); Glucose 292 mg/dL (70-105); Sodium 141 mmol/L (136-145)
[2021-09-13] MEDS: HumaLOG 300 UNITS/3 ML VIAL SC PRN (13:07)
[2021-09-13] MEDS ORDERED: EPINEPHrine 1 MG/10 ML Abboject SYRINGE ONE (13:52)
[2021-09-13] MEDS: Lorazepam 2 MG/ML VIAL SLOW IVP PRN (16:04)
[2021-09-13] MEDS: Norepinephrine 8 MG/0.9% NS 250 ML IVPB SCH (16:12)
[2021-09-13 17:12] LABS: Hemoglobin 8.3 g/dL (14.0-18.0)
[2021-09-13] MEDS: VANCOMYCIN 1.75 GM/350 ML BAG 1.75 GM in Premix Bag 1 BAG IVPB SCH (17:12)
[2021-09-14] MEDS: Norepinephrine 8 MG/0.9% NS 250 ML IVPB SCH (04:03)
[2021-09-14] MEDS: VANCOMYCIN 1.75 GM/350 ML BAG 1.75 GM in Premix Bag 1 BAG IVPB SCH ×2 (04:03→17:27)
[2021-09-14 04:52] LABS: #Lymphocytes 1.5 thou/uL (1.20-3.40); #Monocytes 0.9 thou/uL (0.11-0.59); #Neutrophils 9.7 thou/uL (1.40-6.50); %Basophils 0.1 % (0.0-1.0); %Eosinophils 0.2 % (0.0-10.0); %Lymphocytes 12.4 % (21.0-51.0); %Neutrophils 80.3 % (42.0-75.0); Hemoglobin 7.6 g/dL (14.0-18.0); Mean Corpuscular Hemoglobin 31.7 pg (27.0-31.0); Mean Corpuscular Volume 96.1 fL (78.0-98.0); Mean Platelet Volume 9.5 fL (7.4-10.4); Platelet Count 167 thou/uL (130-400); RBC Distribution Width 12.8 % (11.5-14.5)
[2021-09-14 05:16] LABS: Anion Gap 18 mmol/L (10-20); BUN (Urea Nitrogen) 22 mg/dL (8.4-25.7); Calc. Creatinine Clearance 153 mL/min (70-130); Calcium 7.4 mg/dL (7.8-10.44); Carbon Dioxide 15 mmol/L (22-29); Chloride 114 mmol/L (98-107); Glucose 273 mg/dL (70-105); Sodium 144 mmol/L (136-145)
[2021-09-14] MEDS: HumaLOG 300 UNITS/3 ML VIAL SC PRN ×2 (05:24→14:42)
[2021-09-14 07:09] VITALS: BP 124/75
[2021-09-14] MEDS: Pantoprazole 40 MG VIAL IVP SCH ×2 (09:11→20:18)
[2021-09-14] MEDS: Cefepime 2 GM in Sodium Chloride 0.9% 100 ML IVPB SCH ×2 (09:51→20:18)
[2021-09-14] MEDS: Sodium Chloride 0.9% 1,000 ML IV SCH (12:59)
[2021-09-14] MEDS: tiZANidine HCl 4 MG TAB PO PRN (13:58)
[2021-09-14] MEDS: Lorazepam 2 MG/ML VIAL SLOW IVP PRN (21:30)
[2021-09-15] MEDS: HumaLOG 300 UNITS/3 ML VIAL SC PRN ×2 (00:35→23:03)
[2021-09-15] MEDS: VANCOMYCIN 1.75 GM/350 ML BAG 1.75 GM in Premix Bag 1 BAG IVPB SCH ×2 (03:28→16:08)
[2021-09-15] MEDS: Sodium Chloride 0.9% 1,000 ML IV SCH ×2 (03:28→16:12)
[2021-09-15 03:58] LABS: #Lymphocytes 1.2 thou/uL (1.20-3.40); #Monocytes 0.4 thou/uL (0.11-0.59); #Neutrophils 5.2 thou/uL (1.40-6.50); %Basophils 0.3 % (0.0-1.0); %Eosinophils 0.1 % (0.0-10.0); %Lymphocytes 17.5 % (21.0-51.0); %Monocytes 6.3 % (0.0-10.0); %Neutrophils 75.9 % (42.0-75.0); Hemoglobin 7.3 g/dL (14.0-18.0); Mean Corpuscular HGB CONC 33.3 g/dL (32.0-36.0); Mean Corpuscular Hemoglobin 31.6 pg (27.0-31.0); Mean Corpuscular Volume 94.8 fL (78.0-98.0); Mean Platelet Volume 9.1 fL (7.4-10.4); Platelet Count 162 thou/uL (130-400); RBC Distribution Width 12.8 % (11.5-14.5); White Blood Cell (WBC) Count 6.9 thou/uL (4.8-10.8)
[2021-09-15 04:18] LABS: Anion Gap 15 mmol/L (10-20); BUN (Urea Nitrogen) 18 mg/dL (8.4-25.7); Calc. Creatinine Clearance 165 mL/min (70-130); Calcium 7.8 mg/dL (7.8-10.44); Carbon Dioxide 18 mmol/L (22-29); Chloride 118 mmol/L (98-107); Glucose 277 mg/dL (70-105); Sodium 148 mmol/L (136-145)
[2021-09-15 04:23] LABS: Potassium 2.6 mmol/L (3.5-5.1)
[2021-09-15] MEDS: tiZANidine HCl 4 MG TAB PO PRN ×2 (04:49→14:49)
[2021-09-15] MEDS ORDERED: Electrolyte Replacement Protocol FS PRN (06:30)
[2021-09-15] MEDS: Potassium Chloride 40 MEQ in Sodium Chloride 0.9% 250 ML 250 ML IVPB SCH ×2 (07:01→12:05)
[2021-09-15] MEDS: Cefepime 2 GM in Sodium Chloride 0.9% 100 ML IVPB SCH ×2 (08:53→19:53)
[2021-09-15] MEDS: Senokot S 8.6-50 MG TAB PO SCH ×2 (09:40→19:56)
[2021-09-15] MEDS: Polyethylene Glycol 3350 17 GM Packet PO SCH (09:40)
[2021-09-15] MEDS: Pantoprazole 40 MG VIAL IVP SCH ×2 (09:40→19:56)
[2021-09-15 18:47] LABS: Potassium 3.3 mmol/L (3.5-5.1)
[2021-09-16] MEDS: VANCOMYCIN 1.75 GM/350 ML BAG 1.75 GM in Premix Bag 1 BAG IVPB SCH ×2 (03:45→17:47)
[2021-09-16 04:26] LABS: #Lymphocytes 1.3 thou/uL (1.20-3.40); #Monocytes 0.5 thou/uL (0.11-0.59); #Neutrophils 5.2 thou/uL (1.40-6.50); %Basophils 0.1 % (0.0-1.0); %Eosinophils 0.2 % (0.0-10.0); %Lymphocytes 18.8 % (21.0-51.0); %Monocytes 7.3 % (0.0-10.0); %Neutrophils 73.7 % (42.0-75.0); Hemoglobin 7.2 g/dL (14.0-18.0); Mean Corpuscular HGB CONC 34.2 g/dL (32.0-36.0); Mean Corpuscular Hemoglobin 32.1 pg (27.0-31.0); Mean Corpuscular Volume 93.9 fL (78.0-98.0); Mean Platelet Volume 8.5 fL (7.4-10.4); Platelet Count 185 thou/uL (130-400); RBC Distribution Width 12.6 % (11.5-14.5); Red Blood Cell (RBC) Count 2.24 mill/uL (4.70-6.10)
[2021-09-16] MEDS: HumaLOG 300 UNITS/3 ML VIAL SC PRN ×3 (04:27→17:59)
[2021-09-16 04:46] LABS: Anion Gap 19 mmol/L (10-20); BUN (Urea Nitrogen) 13 mg/dL (8.4-25.7); Calc. Creatinine Clearance 181 mL/min (70-130); Calcium 7.9 mg/dL (7.8-10.44); Carbon Dioxide 16 mmol/L (22-29); Chloride 120 mmol/L (98-107); Glucose 258 mg/dL (70-105); Sodium 152 mmol/L (136-145)
[2021-09-16 04:49] LABS: Potassium 2.9 mmol/L (3.5-5.1)
[2021-09-16] MEDS: Sodium Chloride 0.9% 1,000 ML IV SCH (06:48)
[2021-09-16] MEDS ORDERED: Potassium Chloride 40 MEQ in Sodium Chloride 0.9% 250 ML 250 ML IVPB SCH ×2 (08:00→10:00)
[2021-09-16] MEDS ORDERED: Potassium Chloride 20 MEQ TAB PO SCH (08:30)
[2021-09-16] MEDS ORDERED: Potassium Bicarbonate/Cit Ac 20 MEQ TAB PO SCH (09:15)
[2021-09-16] MEDS: Cefepime 2 GM in Sodium Chloride 0.9% 100 ML IVPB SCH ×2 (09:24→19:41)
[2021-09-16] MEDS: Senokot S 8.6-50 MG TAB PO SCH ×2 (09:25→22:23)
[2021-09-16] MEDS: Pantoprazole 40 MG VIAL IVP SCH ×2 (09:25→22:23)
[2021-09-16] MEDS: Polyethylene Glycol 3350 17 GM Packet PO SCH (09:25)
[2021-09-16] MEDS: VANCOMYCIN 1.25 GM/250 ML BAG 1.25 GM in Premix Bag 1 BAG IVPB SCH (18:03)
[2021-09-17 03:38] LABS: #Lymphocytes 1.5 thou/uL (1.20-3.40); #Monocytes 0.6 thou/uL (0.11-0.59); #Neutrophils 5.6 thou/uL (1.40-6.50); %Basophils 0.3 % (0.0-1.0); %Eosinophils 0.5 % (0.0-10.0); %Lymphocytes 19.6 % (21.0-51.0); %Monocytes 8.3 % (0.0-10.0); %Neutrophils 71.4 % (42.0-75.0); Hemoglobin 8.1 g/dL (14.0-18.0); Mean Corpuscular HGB CONC 33.5 g/dL (32.0-36.0); Mean Corpuscular Hemoglobin 31.5 pg (27.0-31.0); Mean Corpuscular Volume 94.1 fL (78.0-98.0); Mean Platelet Volume 8.2 fL (7.4-10.4); Platelet Count 233 thou/uL (130-400); RBC Distribution Width 12.9 % (11.5-14.5); Red Blood Cell (RBC) Count 2.56 mill/uL (4.70-6.10); White Blood Cell (WBC) Count 7.8 thou/uL (4.8-10.8)
[2021-09-17 03:55] LABS: Anion Gap 16 mmol/L (10-20); BUN (Urea Nitrogen) 12 mg/dL (8.4-25.7); Calc. Creatinine Clearance 178 mL/min (70-130); Calcium 8.7 mg/dL (7.8-10.44); Carbon Dioxide 21 mmol/L (22-29); Chloride 119 mmol/L (98-107); Glucose 292 mg/dL (70-105); Magnesium 2.1 mg/dL (1.6-2.6); Potassium 3.4 mmol/L (3.5-5.1); Sodium 153 mmol/L (136-145)
[2021-09-17] MEDS: HumaLOG 300 UNITS/3 ML VIAL SC PRN ×2 (04:42→13:51)
[2021-09-17] MEDS: VANCOMYCIN 1.25 GM/250 ML BAG 1.25 GM in Premix Bag 1 BAG IVPB SCH (05:05)
[2021-09-17] MEDS: Polyethylene Glycol 3350 17 GM Packet PO SCH (09:17)
[2021-09-17] MEDS: Cefepime 2 GM in Sodium Chloride 0.9% 100 ML IVPB SCH (09:17)
[2021-09-17] MEDS: Senokot S 8.6-50 MG TAB PO SCH ×2 (09:17→21:04)
[2021-09-17] MEDS: Pantoprazole 40 MG VIAL IVP SCH ×2 (09:18→21:04)
[2021-09-17] MEDS ORDERED: Potassium Chloride 40 MEQ in Sodium Chloride 0.9% 250 ML 250 ML IVPB SCH (12:45)
[2021-09-17] MEDS ORDERED: Scopolamine 1.5 mg/72 hour Patch TD SCH (16:00)
[2021-09-17] MEDS: tiZANidine HCl 4 MG TAB PO PRN (18:07)
[2021-09-18] MEDS: Senokot S 8.6-50 MG TAB PO SCH (09:58)
[2021-09-18] MEDS: Polyethylene Glycol 3350 17 GM Packet PO SCH (09:58)
[2021-09-18] MEDS: Pantoprazole 40 MG VIAL IVP SCH (09:58)
[2021-09-18 17:14] VITALS: TEMP 97.6
== END 2021-09-18 17:20 | disposition hospice, inpatient (51) | DRG 659 ==
LOC: ERS 20:22 → SDC/OP 09-13 01:22 → PACU-TCU 09-13 03:02 → CCU 09-13 06:42 → IMCU/EMU 09-16 20:57
PROVIDERS: ADMIT Internal Medicine; ATTEND Family Medicine
PROC: 0T768DZ Dilation of Right Ureter with Intraluminal Device, Via Natural or Artificial Opening Endoscopic (ICD-10-PCS; principal; 2021-09-13)
PROC: 0D9F8ZZ Drainage of Right Large Intestine, Via Natural or Artificial Opening Endoscopic (ICD-10-PCS; 2021-09-13)
PROC: BT1D1ZZ Fluoroscopy of Right Kidney, Ureter and Bladder using Low Osmolar Contrast (ICD-10-PCS; 2021-09-13)
PROC: 3E033XZ Introduction of Vasopressor into Peripheral Vein, Percutaneous Approach (ICD-10-PCS; 2021-09-13)
PROC: 30233N1 Transfusion of Nonautologous Red Blood Cells into Peripheral Vein, Percutaneous Approach (ICD-10-PCS; 2021-09-13)
PROC: 06HY33Z Insertion of Infusion Device into Lower Vein, Percutaneous Approach (ICD-10-PCS; 2021-09-13)
PROC: 3E043XZ Introduction of Vasopressor into Central Vein, Percutaneous Approach (ICD-10-PCS; 2021-09-13)
PROC: 0DJ08ZZ Inspection of Upper Intestinal Tract, Via Natural or Artificial Opening Endoscopic (ICD-10-PCS; 2021-09-13)
PROC: 0BH17EZ Insertion of Endotracheal Airway into Trachea, Via Natural or Artificial Opening (ICD-10-PCS; 2021-09-13)
PROC: 5A1945Z Respiratory Ventilation, 24-96 Consecutive Hours (ICD-10-PCS; 2021-09-13)
PROC: 5A09457 Assistance with Respiratory Ventilation, 24-96 Consecutive Hours, Continuous Positive Airway Pressure (ICD-10-PCS; 2021-09-14)
DX: T83.511A Infection and inflammatory reaction due to indwelling urethral catheter, initial encounter (principal); A41.51 Sepsis due to Escherichia coli [E. coli]; R65.21 Severe sepsis with septic shock; G82.50 Quadriplegia, unspecified; J96.01 Acute respiratory failure with hypoxia; N13.6 Pyonephrosis; J98.11 Atelectasis; J90 Pleural effusion, not elsewhere classified; K92.2 Gastrointestinal hemorrhage, unspecified; K56.7 Ileus, unspecified; K62.6 Ulcer of anus and rectum; G12.21 Amyotrophic lateral sclerosis; D62 Acute posthemorrhagic anemia; Z20.822 Contact with and (suspected) exposure to COVID-19; E11.9 Type 2 diabetes mellitus without complications; K21.9 Gastro-esophageal reflux disease without esophagitis; Z66 Do not resuscitate; D64.9 Anemia, unspecified; Z51.5 Encounter for palliative care; K56.41 Fecal impaction; F32.9 Major depressive disorder, single episode, unspecified; R13.10 Dysphagia, unspecified; I10 Essential (primary) hypertension; Y83.8 Other surgical procedures as the cause of abnormal reaction of the patient, or of later complication, without mention of misadventure at the time of the procedure; E78.5 Hyperlipidemia, unspecified; N40.0 Benign prostatic hyperplasia without lower urinary tract symptoms; Z79.899 Other long term (current) drug therapy; Z79.4 Long term (current) use of insulin; Z79.891 Long term (current) use of opiate analgesic; Z79.84 Long term (current) use of oral hypoglycemic drugs; Z93.1 Gastrostomy status
CPT/HCPCS: 36415; 36416; 36430; 36556; 36600; 74018; 74019; 80048; 80202; 82805; 83605; 83735; 85025; 86850; 86900; 86901; 93005; 94002; 94003; 94660; 96365; 96366; 96374; C2617; C9113; J0171; J0692; J1100; J1650; J1815; J2060; J2250; J2405; J2704; J3010; J3370; J3480; J3490; J7050; P9016; Q9961-U8